=== PATIENT | female | born 1950 | race Caucasian/White ===

== ENCOUNTER 2016-10-30 11:43 | Emergency (ER) | payer MEDICARE, OTHER ==
[2016-10-30 12:14] VITALS: RESP 16
--- NOTE | 2016-10-30 12:33 | ED ---
General Adult HPI - General Chief complaint: Back Pain/Injury Stated complaint: hip/back pain Time Seen by Provider: 10/30/16 12:20 Source: patient, family, RN notes reviewed Mode of arrival: ambulatory Limitations: no limitations - History of Present Illness Initial comments: 69-year-old female who presents emergency room today with a chief complaint of left-sided back pain radiating towards the hip. She admits that has been off- and-on over the last month and getting worse over the last day. Since she's been using [id number] Tylenol with little relief the symptoms. Denies any radiation. Mitts that she was worried about possible UTI with her family doctor week ago but never the results. Patient denies any dysuria or hematuria. States pain is relieved with extension and flexion to the right. States worse with certain movements. Denies any gallbladder incontinence or retention. Denies any saddle anesthesia. Patient denies any recent fever, chills, shortness of breath, chest pain, abdominal pain, nausea or vomiting, numbness or tingling, dysuria or hematuria, constipation or diarrhea, headaches or visual changes, or any other complaints. - Related Data Home Medications Medication Instructions Recorded Confirmed Aspirin 81 mg PO HS 09/08/13 02/09/16 amLODIPine [Norvasc] 5 mg PO BID 09/08/13 02/09/16 Furosemide [Furosemide] 20 mg PO DAILY 05/18/15 02/09/16 Lisinopril [Lisinopril] 40 mg PO QAM 05/18/15 02/09/16 Meclizine [Antivert] 12.5 mg PO TID PRN 05/18/15 02/09/16 Calcium Carbonate/Vitamin D3 1 each PO BID 02/07/16 02/09/16 [Calcium 600-Vit D3 400 Caplet] Ranitidine HCl 150 mg PO BID 02/07/16 02/09/16 Previous Rx's Medication Instructions Recorded Baclofen 10 mg PO TID #20 tab 10/30/16 Hydrocodone/Acetaminophen [[place]olog[place] 1 each PO Q6HR PRN #15 tab 10/30/16 5-325] Ibuprofen [Motrin] 600 mg PO Q6HR PRN #40 day 10/30/16 Allergies Allergy/AdvReac Type Severity Reaction Status Date / Time azithromycin [From Zithromax] Allergy Abdominal Verified 10/30/16 12:10 Pain codeine Allergy Itching Verified 10/30/16 12:10 cyclobenzaprine Allergy facial Verified 10/30/16 12:10 swelling,itching latex Allergy Itching Verified 10/30/16 12:10 methylprednisolone Allergy Abdominal Verified 10/30/16 12:10 Pain sulfamethoxazole Allergy Abdominal Verified 10/30/16 12:10 [From Bactrim] Pain tramadol Allergy Abdominal Verified 10/30/16 12:10 Pain trimethoprim [From Bactrim] Allergy Abdominal Verified 10/30/16 12:10 Pain Review of Systems ROS Statement: Those systems with pertinent positive or pertinent negative responses have been documented in the HPI. ROS Other: All systems not noted in ROS Statement are negative. Past Medical History Past Medical History: GERD/Reflux, Hyperlipidemia, Hypertension, Osteoarthritis (OA), Sleep Apnea/CPAP/BIPAP Additional Past Medical History / Comment(s): "Prediabetic",Gallstones,"has trouble emptying bladder and constant pain" History of Any Multi-Drug Resistant Organisms: None Reported Past Surgical History: Appendectomy, Bladder Surgery, Breast Surgery, Joint Replacement, Orthopedic Surgery Additional Past Surgical History / Comment(s): HEMORROIDS, SKIN CA REMOVAL,Lt hip replacement,chip rt breast Past Anesthesia/Blood Transfusion Reactions: No Reported Reaction Additional Past Anesthesia/Blood Transfusion Reaction / Comment(s): no hx blood transfusion Past Psychological History: No Psychological Hx Reported Smoking Status: Never smoker Past Alcohol Use History: None Reported Past Drug Use History: None Reported - Past Family History Mother Family Medical History: Rheumatoid Arthritis (RA) Father Family Medical History: Cancer Additional Family Medical History / Comment(s): sarcoma abdominal area Sister(s) Family Medical History: Cancer Additional Family Medical History / Comment(s): #1 sister ovarian and bladder CA ,#2 sister breast CA Brother(s) Family Medical History: CVA/TIA General Exam - General Exam Comments Initial Comments: General: The patient is awake and alert, in no distress, and does not appear acutely ill. Eye: Pupils are equal, round and reactive to light, extra-ocular movements are intact. No nystagmus. There is normal conjunctiva bilaterally. No signs of icterus. Ears, nose, mouth and throat: There are moist mucous membranes and no oral lesions. Neck: The neck is supple, there is no tenderness or JVD. Cardiovascular: There is a regular rate and rhythm. No murmur, rub or gallop is appreciated. Respiratory: Lungs are clear to auscultation, respirations are non-labored, breath sounds are equal. No wheezes, stridor, rales, or rhonchi. Gastrointestinal: Soft, non-distended, non-tender abdomen without masses or organomegaly noted. There is no rebound or guarding present. No CVA tenderness. Bowel sounds are unremarkable. Musculoskeletal: Normal ROM, no tenderness. Strength 5/5. Sensation intact. Pulses equal bilaterally 2+. Neurological: A&O x 3. CN II-XII intact, There are no obvious motor or sensory deficits. Coordination appears grossly intact. Speech is normal. Skin: Skin is warm and dry and no rashes or lesions are noted. Psychiatric: Cooperative, appropriate mood & affect, normal judgment. Limitations: no limitations Course Vital Signs 10/30/16 12:10 Temperature 97 F L Pulse Rate 86 Respiratory 16 Rate Blood Pressure 169/79 O2 Sat by Pulse 99 Oximetry Medical Decision Making - Medical Decision Making Patient's urinalysis negative for any sign of infection. Patient's x-rays of the left hip are negative for any acute abnormality. Patient's x-ray of the lumbar spine does show anterolisthesis of L5. Results were discussed with the patient. Patient advised we'll try a muscle relaxer along with anti- inflammatories and pain medication for symptoms. Advised faulted family doctor symptoms persist for further evaluation possible MRI. Advised return for any other concerns. - Lab Data Lab Results 10/30/16 Range/Units 12:55 Urine Color Yellow Urine Appearance Clear (Clear) Urine pH 7.0 (5.0-8.0) Ur Specific [place] 1.015 (1.001-1.035) Urine Protein Negative (Negative) Urine Glucose (UA) Negative (Negative) Urine Ketones Negative (Negative) Urine Blood Negative (Negative) Urine Nitrite Negative (Negative) Urine Bilirubin Negative (Negative) Urine Urobilinogen <2.0 (<2.0) mg/dL Ur Leukocyte Esterase Small H (Negative) Urine WBC 3 (0-5) /hpf Ur Squamous Epith Cells <1 (0-4) /hpf Disposition Clinical Impression: Acute low back pain Disposition: HOME SELF-CARE Condition: Good Instructions: Acute Low Back Pain (ED) Additional Instructions: Please use medication as discussed. Please follow-up with family doctor in the next 2 days of symptoms have not improved. Please return to emergency room if the symptoms increase or worsen or for any other concerns. Prescriptions: Baclofen 10 mg PO TID #20 tab Hydrocodone/Acetaminophen [[place]olog[place] 5-325] 1 each PO Q6HR PRN #15 tab PRN Reason: Pain Ibuprofen [Motrin] 600 mg PO Q6HR PRN #40 day PRN Reason: Pain Referrals: Darinel Camejo MD [Primary Care Provider] - 1-2 days Time of Disposition: 13:31
[2016-10-30 13:10] LABS: Appearance,Urine Clear (Clear); Bilirubin,Urine Negative (Negative); Glucose,Urine (UA) Negative (Negative); Ketones,Urine Negative (Negative); Leukocyte Esterase,Urine Small (Negative); Nitrite,Urine Negative (Negative); Particle Count 610; Protein,Urine Negative (Negative); Specific Gravity,Urine 1.015 (1.001-1.035); Squamous Epithelial Cell,Urine <1 /hpf (0-4); UA Billing (MACRO vs. MICRO) MICRO; Urobilinogen,Urine <2.0 mg/dL (<2.0); WBC,Urine 3 /hpf (0-5)
--- NOTE | 2016-10-30 13:10 | XR ---
EXAMINATION TYPE: XR Hip LT and AP Pelvis DATE OF EXAM: 10/30/2016 COMPARISON: NONE HISTORY: Pain TECHNIQUE: A single AP view of the pelvis is obtained. Two views of the left hip are obtained. FINDINGS: Postsurgical change involving the left hip. Metallic densities overlying the pubic rami. Ar thropathy of the right hip and degenerative change of the spine. Correlate for sacroiliitis. No defin ite acute fracture. IMPRESSION: 1. No acute fracture.
--- NOTE | 2016-10-30 13:12 | XR ---
EXAM TYPE: LUMBAR SPINE X RAY SERIES COMPARISON: NONE HISTORY: Pain TECHNIQUE: 3 views are submitted. FINDINGS: Multilevel moderate to severe degenerative disc disease and facet arthropathy. Grade 1 anterolisthesi s L4 on L5. Scoliotic curvature noted. Changes of sacroiliitis suggested. IMPRESSION: 1. Multilevel moderate to severe degenerative disc disease and facet arthropathy with grade 1 anterol isthesis L4 on L5.
[2016-10-30 13:42] VITALS: BP 152/80; PULSE 70; TEMP 97.5
== END 2016-10-30 13:30 | disposition home or self-care (01) ==
LOC: EC 11:43
DX: M54.5 Low back pain (principal); M43.16 Spondylolisthesis, lumbar region; I10 Essential (primary) hypertension; K21.9 Gastro-esophageal reflux disease without esophagitis; G47.30 Sleep apnea, unspecified; Z99.89 Dependence on other enabling machines and devices; Z85.828 Personal history of other malignant neoplasm of skin; Z79.82 Long term (current) use of aspirin; Z79.899 Other long term (current) drug therapy; Z88.1 Allergy status to other antibiotic agents; Z88.2 Allergy status to sulfonamides; Z88.5 Allergy status to narcotic agent; Z88.6 Allergy status to analgesic agent; Z88.8 Allergy status to other drugs, medicaments and biological substances; Z91.040 Latex allergy status
CPT/HCPCS: 72100; 73502; 81001; 99283

== ENCOUNTER → 2018-05-13 | Outpatient (CLI) | payer MEDICARE, OTHER ==
--- NOTE | 2018-05-15 11:37 | MM ---
Reason for exam: screening (asymptomatic). Last mammogram was performed 2 years and 4 months ago. History: Patient is postmenopausal and has history of other cancer at age 29. Family history of premenopausal breast cancer in sister at age 63. Benign right mammotome panel of the right breast, January 31, 2010. Physical Findings: A clinical breast exam by your physician is recommended on an annual basis and results should be correlated with mammographic findings. MG 3D Screening Mammo W/Cad Bilateral CC and MLO view(s) were taken. Prior study comparison: January 12, 2016, bilateral MG screening mammo w CAD. November 26, 2014, bilateral MG screening mammo w CAD. There are scattered fibroglandular densities. Finding: There are typically benign dystrophic, regional calcifications in the lower inner quadrant, anterior position of the right breast. No significant changes in finding since January 12, 2016 and November 26, 2014. ASSESSMENT: Benign, BI-RAD 2 RECOMMENDATION: Routine screening mammogram of both breasts in 1 year.
== END | disposition home or self-care (01) ==
LOC: RADMAMWWP 14:25
PROVIDERS: ATTEND Family Medicine
DX: Z12.31 Encounter for screening mammogram for malignant neoplasm of breast (principal)
CPT/HCPCS: 77063; 77067

== ENCOUNTER → 2018-06-17 | Outpatient (CLI) | payer MEDICARE, OTHER ==
[~2018-06-17] MED LIST: REGADENOSON 0.4 MG/5 ML SYRINGE IV ONE
--- NOTE | 2018-06-17 12:02 | NM ---
EXAMINATION TYPE: NM stress lexiscan cardiolite DATE OF EXAM: 06/17/2018 COMPARISON: NONE HISTORY: Chest TECHNIQUE: After the intravenous administration of 10.06 mCi Tc 99m Sestamibi - Cardiolite resting S PECT images acquired 45 minutes post injection. The patient received 0.4mg Lexiscan, 25.9 mCi Tc 99m Sestamibi - Stress images obtained [address] injection FINDINGS: Review of stress and rest SPECT images demonstrates a mixed fixed and reversible perfusion defect inv olving the inferoapical myocardium.. Gated analysis shows normal wall motion with an estimated left ventricular ejection fraction of 67 %. Report called to the referring clinician. IMPRESSION: There is a fixed defect involving the inferoapical myocardium with a small area of stress -induced reversible ischemia. Correlate clinically.
--- NOTE | 2018-06-17 14:41 | P.STRESS ---
- Stress Test Note Stress Test Results/Findings: Exam Performed: NM stress lexiscan cardiolite Exam Date: 06/17/18 Reason for Exam: CHEST PAIN Height: 5 ft 4 in Weight: 106.594 kg Protocol: LEXISCAN Stage: N/A Duration of Exercise: 10 MINUTES Resting Heart Rate: 81 Resting Blood Pressure: 138/86 Maximum Achieved Heart Rate: 101 Maximum Achieved Blood Pressure: 165/63 85% PMHR: N/A 100% PMHR: N/A METS: N/A Technologist Comment: Stress Test Results/Findings: Baseline heart rate 81 beats a minute, baseline blood pressure 138/86. His mercury Baseline twelve-lead ECG shows sinus rhythm with normal MN narrow QRS normal ST segments Patient received Lexiscan infusion per protocol Peak heart rate 101 beats a minute. Peak blood pressure 163/95 mmHg There was no ECG evidence for ischemia Occasional PVCs noted Nuclear portion will be reported separately
== END ==
LOC: RADNMMAIN 07:57
PROVIDERS: ATTEND Family Medicine
DX: R07.89 Other chest pain (principal)
CPT/HCPCS: 93017; 78452; A9500; J2785

== ENCOUNTER 2018-11-03 11:19 | Emergency (ER) | payer MEDICARE, OTHER ==
[2018-11-03 11:50] VITALS: TEMP 98.4
[2018-11-03] MEDS ORDERED: MORPHINE SULFATE 4 MG/ML SYRINGE IM STA (12:53)
[2018-11-03] MEDS ORDERED: KETOROLAC 60 MG/2 ML VIAL IM STA (12:53)
--- NOTE | 2018-11-03 13:26 | XR ---
Lumbar spine HISTORY: Low back pain, trauma 3 views of the lumbar spine Correlation to prior exam 10/30/2016 There is a dextroscoliosis centered at the mid lumbar spine. Multilevel spondylosis is present. Hyper trophic changes are present at the sacroiliac joints. Bone mineralization is reduced. Anterolisthesis grade 1 L4-5. Vacuum phenomenon present at intervertebral disc space L3-4, L5-S1, likely L4-5. There is loss of disc height at intervertebral levels. Sclerosis present in the posterior elements of the lumbar spine. There is multilevel spondylosis. Lumbar vertebral bodies show preserved height. Vascula r calcifications are noted within the aorta. IMPRESSION: Degenerative disc disease and facet arthropathy. No acute fracture or subluxation. Scolio sis. Arthropathy of the sacroiliac joints.
--- NOTE | 2018-11-03 13:28 | XR ---
EXAMINATION TYPE: XR Hip LT and AP Pelvis DATE OF EXAM: 11/03/2018 COMPARISON: Previous exam 10/30/2016 HISTORY: Line pain TECHNIQUE: A single AP view of the pelvis is obtained. Two views of the left hip are obtained. FINDINGS: There is no acute fracture/dislocation evident in the pelvis. The hip and sacroiliac join ts appear symmetric and unremarkable. The overlying soft tissue appears unremarkable. Two views of left hip show no acute fracture or dislocation in the patient is status post left hip ar throplasty. Postop changes are noted at the level of the pubic symphysis as on prior. No focal lytic or sclerotic lesion seen in the proximal left femur. The overlying soft tissue is unremarkable. Messi ne mineralization is reduced which may limit sensitivity. IMPRESSION: There is no acute fracture or dislocation in the pelvis or left hip. Follow-up as indica yissel.
--- NOTE | 2018-11-03 13:28 | ED ---
Back Pain HPI - General Chief Complaint: Back Pain/Injury Stated Complaint: hip pain Time Seen by Provider: 11/03/18 12:41 Source: patient, family, RN notes reviewed, old records reviewed Limitations: no limitations - History of Present Illness Initial Comments: His is a 68-year-old female present to return today with back and left hip pain. Symptoms started after she fell on September 14. Patient states that the symptoms seemed to progress over the past few weeks. Patient denies any saddle anesthesias. Total left hip replacement. This was done by Dr. Tinoco.Patient denies any recent fever, chills, shortness of breath, chest pain, back pain, abdominal pain, nausea vomiting, numbness or tingling, dysuria or hematuria, constipation or diarrhea, headaches or visual changes, or any other current symptoms - Related Data Home Medications Medication Instructions Recorded Confirmed Aspirin 81 mg PO HS 09/08/13 11/03/18 amLODIPine [Norvasc] 5 mg PO BID 09/08/13 11/03/18 Meclizine [Antivert] 12.5 mg PO TID PRN 05/18/15 11/03/18 Ranitidine HCl 150 mg PO BID 02/07/16 11/03/18 Atorvastatin Calcium [Lipitor] 10 mg PO HS 11/03/18 11/03/18 Metoprolol Succinate [Toprol XL] 25 mg PO DAILY 11/03/18 11/03/18 Previous Rx's Medication Instructions Recorded Cyclobenzaprine [Flexeril] 10 mg PO TID #12 tab 11/03/18 methylPREDNISolone Dose Pack 4 mg PO DIRECTED #21 package 11/03/18 [Medrol Dose Pack] Allergies Allergy/AdvReac Type Severity Reaction Status Date / Time codeine Allergy Itching Verified 11/03/18 12:58 cyclobenzaprine Allergy facial Verified 11/03/18 12:58 swelling,itching latex Allergy Itching Verified 11/03/18 12:58 azithromycin [From Zithromax] AdvReac Abdominal Verified 11/03/18 12:58 Pain methylprednisolone AdvReac Abdominal Verified 11/03/18 12:58 Pain sulfamethoxazole AdvReac Abdominal Verified 11/03/18 12:58 [From Bactrim] Pain tramadol AdvReac Abdominal Verified 11/03/18 12:58 Pain trimethoprim [From Bactrim] AdvReac Abdominal Verified 11/03/18 12:58 Pain Review of Systems ROS Statement: Those systems with pertinent positive or pertinent negative responses have been documented in the HPI. ROS Other: All systems not noted in ROS Statement are negative. Past Medical History Past Medical History: GERD/Reflux, Hyperlipidemia, Hypertension, Osteoarthritis (OA), Sleep Apnea/CPAP/BIPAP Additional Past Medical History / Comment(s): "Prediabetic",Gallstones,"has trouble emptying bladder and constant pain" History of Any Multi-Drug Resistant Organisms: None Reported Past Surgical History: Appendectomy, Bladder Surgery, Breast Surgery, Joint Replacement, Orthopedic Surgery Additional Past Surgical History / Comment(s): HEMORROIDS, SKIN CA REMOVAL,Lt hip replacement,chip rt breast Past Anesthesia/Blood Transfusion Reactions: No Reported Reaction Additional Past Anesthesia/Blood Transfusion Reaction / Comment(s): no hx blood transfusion Past Psychological History: No Psychological Hx Reported Smoking Status: Never smoker Past Alcohol Use History: None Reported Past Drug Use History: None Reported - Past Family History Mother Family Medical History: Rheumatoid Arthritis (RA) Father Family Medical History: Cancer Additional Family Medical History / Comment(s): sarcoma abdominal area Sister(s) Family Medical History: Cancer Additional Family Medical History / Comment(s): #1 sister ovarian and bladder CA,#2 sister breast CA Brother(s) Family Medical History: CVA/TIA General Exam - General Exam Comments Initial Comments: 68-year-old female. Alert and oriented 3. No distress. General: Well appearing, well nourished, in no distress. Oriented x 3, normal mood and affect . Ambulating without difficulty. Skin: Good turgor, no rash, unusual bruising or prominent lesions Hair: Normal texture and distribution. HEENT: Head: Normocephalic, atraumatic, no visible or palpable masses, depressions, or scaring. Eyes: Visual acuity intact, conjunctiva clear, sclera non-icteric, EOM intact, PERRL. Ears: EACs clear, TMs translucent & cone of light visualized. hearing intact. Nose: No external lesions, mucosa non-inflamed, septum and turbinates normal Mouth: Mucous membranes moist, no mucosal lesions. Teeth/Gums: No obvious caries or periodontal disease. No gingival inflammation or significant resorption. Pharynx: Mucosa non-inflamed, no tonsillar hypertrophy or exudate Neck: Supple, without lesions, bruits, or adenopathy, thyroid non-enlarged and non-tender Heart: No cardiomegaly or thrills; regular rate and rhythm, no murmur or gallop Lungs: Clear to auscultation and percussion Abdomen: Bowel sounds normal, no tenderness, organomegaly, masses, or hernia Extremities: No amputations or deformities, cyanosis, edema or varicosities, peripheral pulses intact. Patient does have some tenderness over the left lat eral hip. No contusions. Musculoskeletal: Normal gait and station. No misalignment, asymmetry, crepitation, defects, tenderness, masses, effusions, decreased range of motion, instability, atrophy or abnormal strength or tone in the head, neck, spine, ribs, pelvis or extremities. Neurologic: CN 2-12 normal. Sensation to pain, touch, and proprioception normal. DTRs normal in upper and lower extremities. No pathologic reflexes. Psychiatric: Oriented X3, intact recent and remote memory, judgment and insight, normal mood and affect. Limitations: no limitations Course Vital Signs 11/03/18 11/03/18 11:47 14:24 Temperature 98.4 F Pulse Rate 72 70 Respiratory 17 18 Rate Blood Pressure 131/73 138/78 O2 Sat by Pulse 98 97 Oximetry Medical Decision Making - Medical Decision Making Patient is a 68 , SHE PRESENTS TODAY FOR CHIEF COMPLAINT OF of left hip pain and lower back pain. Patient's symptoms started on September 14 after fall. She's been able ambulate since that time. She does have some pain with range of motion of the left hip. No shortening of the leg pulses are intact. X-rays of the hip prosthesis reviewed and negative for any acute changes in the lower spine x-rays did show degenerative disc disease butacute fractures. I discussed Patient can follow-up with inventory management specialist Dr. Tinoco in thoughts who did her placement. Patient is agreeable unable to ambulate without difficulty. - Radiology Data Radiology results: report reviewed Acute fracture-dislocation in the pelvis or left hip. Degenerative disc disease and sat her up they. No acute fracture subluxation. Scoliosis. Arthropathy of the sacroiliac joints. Disposition Clinical Impression: DDD (degenerative disc disease), Lumbar back pain, Left hip pain Disposition: HOME SELF-CARE Condition: Good Instructions (If sedation given, give patient instructions): Acute Low Back Pain (ED) Additional Instructions: Patient advised to follow up with inventory management specialist. Please use medication as discussed. Please follow up with family doctor if symptoms have not improved over the next two days. Please return to the emergency room if your symptoms increase or worsen or for any other concerns. Prescriptions: Cyclobenzaprine [Flexeril] 10 mg PO TID #12 tab methylPREDNISolone Dose Pack [Medrol Dose Pack] 4 mg PO DIRECTED #21 package Is patient prescribed a controlled substance at d/c from ED?: No Referrals: Darinel Camejo MD [Primary Care Provider] - 1-2 days Tony David MD [Family Provider] - 1-2 days Time of Disposition: 14:03
[2018-11-03 14:24] VITALS: BP 138/78; PULSE 70; RESP 18
== END 2018-11-03 14:24 | disposition home or self-care (01) ==
LOC: EC 11:19
DX: M51.36 Other intervertebral disc degeneration, lumbar region (principal); M25.552 Pain in left hip; K21.9 Gastro-esophageal reflux disease without esophagitis; E78.5 Hyperlipidemia, unspecified; I10 Essential (primary) hypertension; M19.90 Unspecified osteoarthritis, unspecified site; G47.30 Sleep apnea, unspecified; Z79.82 Long term (current) use of aspirin; Z79.899 Other long term (current) drug therapy; Z88.5 Allergy status to narcotic agent; Z91.040 Latex allergy status; Z88.8 Allergy status to other drugs, medicaments and biological substances; Z88.2 Allergy status to sulfonamides; Z99.89 Dependence on other enabling machines and devices; Z96.642 Presence of left artificial hip joint
CPT/HCPCS: 72100; 73502; 99284; 96372 ×2; J2270; J1885

== ENCOUNTER → 2019-03-24 | Outpatient (CLI) | payer MEDICARE, OTHER ==
--- NOTE | 2019-03-24 13:50 | NM ---
EXAMINATION TYPE: NM bone 3 phase DATE OF EXAM: 03/24/2019 COMPARISON: NONE HISTORY: Pain in left hip and down left leg Triple phase bone scintigraphy was performed following the injection of 24.6 mCi Tc 99m MDP. Immedia te images and 5.5 hours post injection images acquired. FINDINGS: Blood flow and blood pool activity is normal and symmetric. Photopenic area in the proximal left femur consistent with hip arthroplasty. Mild uptake present along the proximal femoral distribu tion adjacent to the femoral component of the patient's left hip arthroplasty on the frontal image. There is no significant abnormal accumulation of radiotracer to suggest metastatic disease to the bon e or other significant abnormality. IMPRESSION: Mild uptake along the femoral component is nonspecific at the left hip. There may be underlying stres s change, correlate with plain film for possible loosening, particle disease.
== END | disposition home or self-care (01) ==
LOC: RADNMMAIN 07:21
PROVIDERS: ATTEND Orthopaedic Surgery
DX: M79.662 Pain in left lower leg (principal); Z91.040 Latex allergy status; Z88.2 Allergy status to sulfonamides; Z88.1 Allergy status to other antibiotic agents; Z88.5 Allergy status to narcotic agent; Z88.6 Allergy status to analgesic agent
CPT/HCPCS: 78315; A9503

== ENCOUNTER → 2019-08-07 | Outpatient (CLI) | payer MEDICARE, OTHER ==
--- NOTE | 2019-08-10 10:24 | MM ---
Reason for exam: screening (asymptomatic). Last mammogram was performed 1 year and 3 months ago. History: Patient is postmenopausal and has history of other cancer at age 29. Family history of premenopausal breast cancer in sister at age 63. Benign right mammotome panel of the right breast, January 31, 2010. Took hormonal contraceptives for 14 years beginning at age 19. Physical Findings: A clinical breast exam by your physician is recommended on an annual basis and results should be correlated with mammographic findings. MG 3D Screening Mammo W/Cad Bilateral CC and MLO view(s) were taken. Prior study comparison: May 13, 2018, bilateral MG 3d screening mammo w/cad. January 12, 2016, bilateral MG screening mammo w CAD. There are scattered fibroglandular densities. No significant changes when compared with prior studies. ASSESSMENT: Benign, BI-RAD 2 RECOMMENDATION: Routine screening mammogram of both breasts in 1 year.
== END | disposition home or self-care (01) ==
LOC: RADMAMWWP 11:29
PROVIDERS: ATTEND Family Medicine
DX: Z12.31 Encounter for screening mammogram for malignant neoplasm of breast (principal)
CPT/HCPCS: 77063; 77067

== ENCOUNTER 2020-03-27 05:04 | Observation (INO) | payer MEDICARE, OTHER ==
[2020-03-27] MEDS ORDERED: SODIUM CHLORIDE 0.9% 1,000 ML IV STA (05:43)
[2020-03-27] MEDS ORDERED: ONDANSETRON 4 MG/2 ML VIAL IVP STA ×3 (05:43→09:27)
[2020-03-27] MEDS ORDERED: PANTOPRAZOLE 40 MG/10 ML VIAL IVP STA (05:43)
[2020-03-27] MEDS ORDERED: MORPHINE SULFATE 4 MG/ML SYRINGE IV STA (05:43)
--- NOTE | 2020-03-27 05:45 | ED ---
Abdominal Pain HPI - General Source: patient, RN notes reviewed, old records reviewed Mode of arrival: ambulatory Limitations: no limitations - History of Present Illness MD Complaint: abdominal pain -: hour(s) Location: diffuse Radiation: epigastric Migration to: epigastric Severity: moderate Severity scale (1-10): 4 Quality: cramping, aching Consistency: constant Improves With: nothing Worsens With: nothing Associated Symptoms: nausea, vomiting Treatments Prior to Arrival: NSAIDs <Dwayne Knott - Last Filed: 03/27/20 06:02> <Earle Cook - Last Filed: 03/27/20 09:09> - General Chief Complaint: Abdominal Pain Stated Complaint: ABD pain Time Seen by Provider: 03/27/20 05:17 - History of Present Illness Initial Comments: This is a 69-year-old female to the ER for evaluation patient presents for diffuse abdominal pain anterior abdominal pain. Patient has severe anterior abdominal pain with persistent nausea vomiting. No fevers but does feel little sweaty and clammy. Patient has had appendix surgery but when she was a kid also had a hysterectomy. Patient has no recent travel history or sick contacts. Feels like she is concerned for some gallbladder illness. (Dwayne Knott) - Related Data Home Medications Medication Instructions Recorded Confirmed Aspirin 81 mg PO HS 09/08/13 11/03/18 amLODIPine [Norvasc] 5 mg PO BID 09/08/13 11/03/18 Meclizine [Antivert] 12.5 mg PO TID PRN 05/18/15 11/03/18 Ranitidine HCl 150 mg PO BID 02/07/16 11/03/18 Atorvastatin Calcium [Lipitor] 10 mg PO HS 11/03/18 11/03/18 Metoprolol Succinate [Toprol XL] 25 mg PO DAILY 11/03/18 11/03/18 Previous Rx's Medication Instructions Recorded Cyclobenzaprine [Flexeril] 10 mg PO TID #12 tab 11/03/18 methylPREDNISolone Dose Pack 4 mg PO DIRECTED #21 package 11/03/18 [Medrol Dose Pack] Allergies Allergy/AdvReac Type Severity Reaction Status Date / Time codeine Allergy Itching Verified 03/27/20 05:21 cyclobenzaprine Allergy facial Verified 03/27/20 05:21 swelling,itching latex Allergy Itching Verified 03/27/20 05:21 azithromycin [From Zithromax] AdvReac Abdominal Verified 03/27/20 05:21 Pain methylprednisolone AdvReac Abdominal Verified 03/27/20 05:21 Pain sulfamethoxazole AdvReac Abdominal Verified 03/27/20 05:21 [From Bactrim] Pain tramadol AdvReac Abdominal Verified 03/27/20 05:21 Pain trimethoprim [From Bactrim] AdvReac Abdominal Verified 03/27/20 05:21 Pain Review of Systems ROS Other: All systems not noted in ROS Statement are negative. <Dwayne Knott - Last Filed: 03/27/20 06:02> ROS Other: All systems not noted in ROS Statement are negative. <Earle Cook - Last Filed: 03/27/20 09:09> ROS Statement: Those systems with pertinent positive or pertinent negative responses have been documented in the HPI. Past Medical History Past Medical History: GERD/Reflux, Hyperlipidemia, Hypertension, Osteoarthritis (OA), Sleep Apnea/CPAP/BIPAP Additional Past Medical History / Comment(s): "Prediabetic",Gallstones,"has trouble emptying bladder and constant pain" History of Any Multi-Drug Resistant Organisms: None Reported Past Surgical History: Appendectomy, Bladder Surgery, Breast Surgery, Joint Repl acement, Orthopedic Surgery Additional Past Surgical History / Comment(s): HEMORROIDS, SKIN CA REMOVAL,Lt hip replacement,chip rt breast Past Anesthesia/Blood Transfusion Reactions: No Reported Reaction Additional Past Anesthesia/Blood Transfusion Reaction / Comment(s): no hx blood transfusion Past Psychological History: No Psychological Hx Reported Smoking Status: Never smoker Past Alcohol Use History: None Reported Past Drug Use History: None Reported - Past Family History Mother Family Medical History: Rheumatoid Arthritis (RA) Father Family Medical History: Cancer Additional Family Medical History / Comment(s): sarcoma abdominal area Sister(s) Family Medical History: Cancer Additional Family Medical History / Comment(s): #1 sister ovarian and bladder CA,#2 sister breast CA Brother(s) Family Medical History: CVA/TIA <Dwayne Knott - Last Filed: 03/27/20 06:02> General Exam Limitations: no limitations General appearance: alert, in no apparent distress Head exam: Present: atraumatic, normocephalic, normal inspection Eye exam: Present: normal appearance, PERRL, EOMI. Absent: scleral icterus, conjunctival injection, periorbital swelling ENT exam: Present: normal exam, mucous membranes moist Neck exam: Present: normal inspection. Absent: tenderness, meningismus, lymphadenopathy Respiratory exam: Present: normal lung sounds bilaterally. Absent: respiratory distress, wheezes, rales, rhonchi, stridor Cardiovascular Exam: Present: regular rate, normal rhythm, normal heart sounds. Absent: systolic murmur, diastolic murmur, rubs, gallop, clicks GI/Abdominal exam: Present: soft, normal bowel sounds. Absent: distended, tenderness, guarding, rebound, rigid Extremities exam: Present: normal inspection, full ROM, normal capillary refill. Absent: tenderness, pedal edema, joint swelling, calf tenderness Back exam: Present: normal inspection Neurological exam: Present: alert, oriented X3, CN II-XII intact Psychiatric exam: Present: normal affect, normal mood Skin exam: Present: warm, dry, intact, normal color. Absent: rash <Dwayne Knott - Last Filed: 03/27/20 06:02> Course <Dwayne Knott - Last Filed: 03/27/20 06:02> Vital Signs 03/27/20 03/27/20 03/27/20 05:14 07:01 07:36 Temperature 97.8 F Pulse Rate 61 96 78 Respiratory 18 16 18 Rate Blood Pressure 220/66 204/109 166/83 O2 Sat by Pulse 97 96 98 Oximetry - Reevaluation(s) Reevaluation #1: 03/27/20 06:04 Medical record is reviewed (Dwayne Knott) Reevaluation #2: 03/27/20 06:04 Symptoms have been improved (Dwayne Knott) Medical Decision Making - Lab Data Result diagrams: 03/27/20 05:55 03/27/20 05:55 - Radiology Data Radiology results: report reviewed (I did review the imaging and report evidence of cholecystitis or choledocholithiasis is a common bile duct 1 cm. CAT scan shows no obvious acute processes.), image reviewed <Earle Cook - Last Filed: 03/27/20 09:09> - Medical Decision Making the patient was endorsed me by Dr. Knott at her shift change pending CAT scan results. Patient does have evidence of acute cholecystitis and cholelithiasis. I did discuss the case the patient and her as well as Dr. Sandoval. Patient will be admitted for cholecystectomy. The meantime pain control and nausea control measures will be continued. (Earle Cook) - Lab Data Lab Results 03/27/20 03/27/20 03/27/20 Range/Units 05:55 05:55 05:55 WBC 10.9 H (3.8-10.6) k/uL RBC 5.02 (3.80-5.40) m/uL Hgb 14.6 (11.4-16.0) gm/dL Hct 42.9 (34.0-46.0) % MCV 85.4 (80.0-100.0) fL MCH 29.1 (25.0-35.0) pg MCHC 34.1 (31.0-37.0) g/dL RDW 12.2 (11.5-15.5) % Plt Count 383 (150-450) k/uL MPV 7.1 Neutrophils % 85 % Lymphocytes % 9 % Monocytes % 4 % Eosinophils % 1 % Basophils % 0 % Neutrophils # 9.3 H (1.3-7.7) k/uL Lymphocytes # 1.0 (1.0-4.8) k/uL Monocytes # 0.4 (0-1.0) k/uL Eosinophils # 0.1 (0-0.7) k/uL Basophils # 0.0 (0-0.2) k/uL PT 10.0 (9.0-12.0) sec INR 0.9 (<1.2) APTT 21.9 L (22.0-30.0) sec Sodium (137-145) mmol/L Potassium (3.5-5.1) mmol/L Chloride (98-107) mmol/L Carbon Dioxide (22-30) mmol/L Anion Gap mmol/L BUN (7-17) mg/dL Creatinine (0.52-1.04) mg/dL Est GFR (CKD-EPI)AfAm (>60 ml/min/1.73 sqM) Est GFR (CKD-EPI)NonAf (>60 ml/min/1.73 sqM) Glucose (74-99) mg/dL Plasma Lactic Acid [place] (0.7-2.0) mmol/L Calcium (8.4-10.2) mg/dL Total Bilirubin (0.2-1.3) mg/dL AST (14-36) U/L ALT (4-34) U/L Alkaline Phosphatase (38-126) U/L Troponin I (0.000-0.034) ng/mL Total Protein (6.3-8.2) g/dL Albumin (3.5-5.0) g/dL Amylase (30-110) U/L Lipase (23-300) U/L Urine Color Light Yellow Urine Appearance Clear (Clear) Urine pH 8.0 (5.0-8.0) Ur Specific [place] 1.016 (1.001-1.035) Urine Protein Trace H (Negative) Urine Glucose (UA) Negative (Negative) Urine Ketones Negative (Negative) Urine Blood Negative (Negative) Urine Nitrite Negative (Negative) Urine Bilirubin Negative (Negative) Urine Urobilinogen <2.0 (<2.0) mg/dL Ur Leukocyte Esterase Small H (Negative) Urine RBC 2 (0-5) /hpf Urine WBC 9 H (0-5) /hpf Ur Squamous Epith Cells 1 (0-4) /hpf Urine Bacteria Rare H (None) /hpf Urine Mucus Rare H (None) /hpf 03/27/20 03/27/20 03/27/20 Range/Units 05:55 05:55 05:55 WBC (3.8-10.6) k/uL RBC (3.80-5.40) m/uL Hgb (11.4-16.0) gm/dL Hct (34.0-46.0) % MCV (80.0-100.0) fL MCH (25.0-35.0) pg MCHC (31.0-37.0) g/dL RDW (11.5-15.5) % Plt Count (150-450) k/uL MPV Neutrophils % % Lymphocytes % % Monocytes % % Eosinophils % % Basophils % % Neutrophils # (1.3-7.7) k/uL Lymphocytes # (1.0-4.8) k/uL Monocytes # (0-1.0) k/uL Eosinophils # (0-0.7) k/uL Basophils # (0-0.2) k/uL PT (9.0-12.0) sec INR (<1.2) APTT (22.0-30.0) sec Sodium 138 (137-145) mmol/L Potassium 4.2 (3.5-5.1) mmol/L Chloride 100 (98-107) mmol/L Carbon Dioxide 26 (22-30) mmol/L Anion Gap 12 mmol/L BUN 19 H (7-17) mg/dL Creatinine 1.32 H (0.52-1.04) mg/dL Est GFR (CKD-EPI)AfAm 47 (>60 ml/min/1.73 sqM) Est GFR (CKD-EPI)NonAf 41 (>60 ml/min/1.73 sqM) Glucose 170 H (74-99) mg/dL Plasma Lactic Acid [place] 2.0 (0.7-2.0) mmol/L Calcium 9.9 (8.4-10.2) mg/dL Total Bilirubin 0.7 (0.2-1.3) mg/dL AST 27 (14-36) U/L ALT 23 (4-34) U/L Alkaline Phosphatase 95 (38-126) U/L Troponin I <0.012 (0.000-0.034) ng/mL Total Protein 7.8 (6.3-8.2) g/dL Albumin 4.4 (3.5-5.0) g/dL Amylase 58 (30-110) U/L Lipase 129 (23-300) U/L Urine Color Urine Appearance (Clear) Urine pH (5.0-8.0) Ur Specific [place] (1.001-1.035) Urine Protein (Negative) Urine Glucose (UA) (Negative) Urine Ketones (Negative) Urine Blood (Negative) Urine Nitrite (Negative) Urine Bilirubin (Negative) Urine Urobilinogen (<2.0) mg/dL Ur Leukocyte Esterase (Negative) Urine RBC (0-5) /hpf Urine WBC (0-5) /hpf Ur Squamous Epith Cells (0-4) /hpf Urine Bacteria (None) /hpf Urine Mucus (None) /hpf Disposition <Dwayne Knott - Last Filed: 03/27/20 06:02> <Earle Cook - Last Filed: 03/27/20 09:09> Clinical Impression: Acute calculous cholecystitis, Abdominal pain Disposition: ADMITTED IP TO THIS HOSP Condition: Fair Referrals: Darinel Camejo MD [Primary Care Provider] - 1-2 days
[2020-03-27 06:13] LABS: Basophils % (A) 0 %; Eosinophils # (A) 0.1 k/uL (0-0.7); Eosinophils % (A) 1 %; HCT 42.9 % (34.0-46.0); HGB 14.6 gm/dL (11.4-16.0); Lymphocytes % (A) 9 %; MCH 29.1 pg (25.0-35.0); MCHC 34.1 g/dL (31.0-37.0); MCV 85.4 fL (80.0-100.0); Mean Platelet Volume 7.1; Monocytes # (A) 0.4 k/uL (0-1.0); Monocytes % (A) 4 %; Neutrophils # (A) 9.3 k/uL (1.3-7.7); Neutrophils % (A) 85 %; Platelet Count 383 k/uL (150-450); RBC 5.02 m/uL (3.80-5.40); RDW 12.2 % (11.5-15.5); WBC 10.9 k/uL (3.8-10.6)
[2020-03-27 06:16] LABS: Appearance,Urine Clear (Clear); Bacteria,Urine Rare /hpf; Bilirubin,Urine Negative (Negative); Blood,Urine Negative (Negative); Color,Urine Light Yellow; Glucose,Urine (UA) Negative (Negative); Ketones,Urine Negative (Negative); Leukocyte Esterase,Urine Small (Negative); Mucus,Urine Rare /hpf; Nitrite,Urine Negative (Negative); Protein,Urine Trace (Negative); RBC,Urine 2 /hpf (0-5); Specific Gravity,Urine 1.016 (1.001-1.035); Squamous Epithelial Cell,Urine 1 /hpf (0-4); Urobilinogen,Urine <2.0 mg/dL (<2.0); WBC,Urine 9 /hpf (0-5)
[2020-03-27 06:23] LABS: Albumin 4.4 g/dL (3.5-5.0); Calcium 9.9 mg/dL (8.4-10.2); Potassium 4.2 mmol/L (3.5-5.1); Total Bilirubin 0.7 mg/dL (0.2-1.3); Total Protein 7.8 g/dL (6.3-8.2)
[2020-03-27 06:30] LABS: INR 0.9 (<1.2)
[2020-03-27 06:38] LABS: Partial Thromboplastin Time 21.9 sec (22.0-30.0)
[2020-03-27] MEDS ORDERED: LABETALOL 5 MG/ML VIAL MDV IVP STA (06:58)
--- NOTE | 2020-03-27 07:46 | US ---
EXAMINATION TYPE: US gallbladder DATE OF EXAM: 03/27/2020 COMPARISON: CT 03/27/2020 CLINICAL HISTORY: pain. Difficult and limited exam due to patient pain, overlying bowel gas, and jahaira ent body habitus EXAM MEASUREMENTS: Liver Length: 16.2 cm Gallbladder Wall: 0.4 cm CBD: 1.0 cm Right Kidney: 9.5 x 4.3 x 3.7 cm Pancreas: Obscured by bowel gas, duct visualized measuring 0.4 cm Liver: Increased attenuation, decreased visualization of vessels suggestive of fatty infiltrate Gallbladder: Stone visualized with neck measuring 1.9 cm. Possible adenomyomatosis visualized. Wall appears thickened with possible small amount of pericholecystic fluid visualized Evidence for sonographic Pope's sign: Yes CBD: Dilated Right Kidney: No hydronephrosis or masses seen IMPRESSION: 1. Nonspecific pattern to the liver compatible with fatty infiltration or hepatitis. 2. 1.9 cm gallstone. Thickened wall with small amount of pericholecystic fluid suggest acute cholecys titis. CBD dilated measuring 1.0 cm. Distal CBD stone or pathology suggested.
[2020-03-27] MEDS ORDERED: HYDROmorphone 1 MG/ML 1 ML SYRINGE IVP STA (08:03)
--- NOTE | 2020-03-27 08:16 | CT ---
EXAM: CT Angiography Chest With Intravenous Contrast CLINICAL HISTORY: pain TECHNIQUE: Axial computed tomographic angiography images of the chest with intravenous contrast. CTDI is 23 mGy and DLP is 662.3 mGy-cm. This CT exam was performed using one or more of the following dose reduction techniques: automated exposure control, adjustment of the mA and/or kV according to patient size, and/or use of iterative reconstruction technique. MIP reconstructed images were created and reviewed. COMPARISON: 05/18/2015. FINDINGS: Pulmonary arteries: Unremarkable. No pulmonary embolism. Aorta: Mild/moderate calcific and noncalcific atheromatous disease involving the intrathoracic aorta, as seen on the comparison study. No thoracic aortic aneurysm. Lungs: Mild diffuse bronchiectasis again noted, unchanged. No mass. Pleural space: Unremarkable. No significant effusion. No pneumothorax. Heart: Unremarkable. No cardiomegaly. No significant pericardial effusion. No evidence of RV dysfunction. Thyroid: Enlarged heterogeneous left thyroid gland is again noted resulting in right lateral deviation of the trachea. Bones/joints: Degenerative changes are again noted throughout the thoracic spine, as seen on the prior study. No acute fracture. No dislocation. Soft tissues: Unremarkable. Lymph nodes: Unremarkable. No enlarged lymph nodes. IMPRESSION: No acute findings in the visualized arteries of the chest. Other chronic findings, as above
--- NOTE | 2020-03-27 08:29 | CT ---
EXAM: CT Abdomen and Pelvis With Intravenous Contrast CLINICAL HISTORY: pain TECHNIQUE: Axial computed tomography images of the abdomen and pelvis with intravenous contrast. CTDI is 45.87 mGy and DLP is 2246.5 mGy-cm. This CT exam was performed using one or more of the following dose reduction techniques: automated exposure control, adjustment of the mA and/or kV according to patient size, and/or use of iterative reconstruction technique. COMPARISON: CT of the chest dated 05/18/2015. FINDINGS: Lung bases: Please refer to the CTA of the chest performed the same day ABDOMEN: Liver: Hepatomegaly, measuring up to 18.2 cm in greatest craniocaudad dimension. Gallbladder and bile ducts: Cholelithiasis in a prominent gallbladder with gallbladder wall thickening/edema and pericholecystic haziness raising concern for acute cholecystitis. Pancreas: Unremarkable. No mass. No ductal dilation. Spleen: Stable 1.4 cm cyst in the lateral aspect of the spleen, likely from prior trauma versus infection. A new 1.4 cm hypodense well marginated lesion is seen within the spleen, likely benign. Adrenals: Unremarkable. No mass. Kidneys and ureters: Unremarkable. No solid mass. No hydronephrosis. Stomach and bowel: Colonic diverticulosis. Subtle pericolonic fat stranding is seen adjacent to the proximal sigmoid colon in the region of multiple diverticula, which may represent early/mild acute diverticulitis in the correct clinical setting. Duodenal diverticulum, measuring up to 1.6 cm in greatest axial dimension. No obstruction. PELVIS: Appendix: No findings to suggest acute appendicitis. Bladder: Unremarkable. No mass. Reproductive: Unremarkable as visualized. ABDOMEN and PELVIS: Intraperitoneal space: Unremarkable. No free air. No significant fluid collection. Bones/joints: Status post left total hip arthroplasty. Bilateral sacroiliitis. Mild/moderate dextroscoliosis of the lumbar spine. Evaluation of the osseous structures demonstrates moderate degenerative changes. No acute fracture. No dislocation. Soft tissues: Unremarkable. Vasculature: Moderate at this chronic vascular calcifications involving the intra-abdominal aorta. No abdominal aortic aneurysm. Lymph nodes: Unremarkable. No enlarged lymph nodes. IMPRESSION: 1. Cholelithiasis in a prominent gallbladder with gallbladder wall thickening/edema and pericholecystic haziness raising concern for acute cholecystitis. Right upper quadrant ultrasound is recommended for further evaluation. 2. Colonic diverticulosis. Subtle pericolonic fat stranding is seen adjacent to the proximal sigmoid colon in the region of multiple diverticula, which may represent early/mild acute diverticulitis in the correct clinical setting. 3. Hepatomegaly.
[2020-03-27] MEDS ORDERED: PIPERACILLIN-TAZOBACTAM 3.375 GM in SODIUM CHLORIDE 0.9% 100 ML IVPB STA (09:03)
[2020-03-27] MEDS ORDERED: fentaNYL (PF) 50 MCG/ML 2 ML AMP IV STA (09:05)
[2020-03-27] MEDS ORDERED: PROCHLORPERAZINE INJ 10 MG/2 ML VIAL IVP STA (09:05)
[2020-03-27] MEDS ORDERED: NALOXONE 0.4 MG/ML 1 ML VIAL IV PRN (09:09)
[2020-03-27] MEDS: SODIUM CHLORIDE 0.9% 1,000 ML IV SCH ×2 (09:22→14:34)
--- NOTE | 2020-03-27 09:59 | P.GSHP ---
History of Present Illness H&P Date: 03/27/20 Chief Complaint: Right upper quadrant pain This is a 69-year-old who presents emergency room with complaints of abdominal pain. Patient's severe pain and nausea requiring. Patient also performed showed evidence of a 1.9 cm gallstone in the neck of the gallbladder with dae cholecystic fluid suggestive of acute cholecystitis Past Medical History Past Medical History: GERD/Reflux, Hyperlipidemia, Hypertension, Osteoarthritis (OA), Sleep Apnea/CPAP/BIPAP Additional Past Medical History / Comment(s): "Prediabetic",Gallstones,"has trouble emptying bladder and constant pain" History of Any Multi-Drug Resistant Organisms: None Reported Past Surgical History: Appendectomy, Bladder Surgery, Breast Surgery, Joint Replacement, Orthopedic Surgery Additional Past Surgical History / Comment(s): HEMORROIDS, SKIN CA REMOVAL,Lt hip replacement,chip rt breast Past Anesthesia/Blood Transfusion Reactions: No Reported Reaction Additional Past Anesthesia/Blood Transfusion Reaction / Comment(s): no hx blood transfusion Past Psychological History: No Psychological Hx Reported Smoking Status: Never smoker Past Alcohol Use History: None Reported Past Drug Use History: None Reported - Past Family History Mother Family Medical History: Rheumatoid Arthritis (RA) Father Family Medical History: Cancer Additional Family Medical History / Comment(s): sarcoma abdominal area Sister(s) Family Medical History: Cancer Additional Family Medical History / Comment(s): #1 sister ovarian and bladder CA,#2 sister breast CA Brother(s) Family Medical History: CVA/TIA Medications and Allergies Home Medications Medication Instructions Recorded Confirmed Type Meclizine [Antivert] 12.5 mg PO TID PRN 05/18/15 03/27/20 History Atorvastatin Calcium [Lipitor] 10 mg PO HS 11/03/18 03/27/20 History Metoprolol Succinate [Toprol XL] 25 mg PO DAILY 11/03/18 03/27/20 History Omeprazole 40 mg PO DAILY 03/27/20 03/27/20 History Sucralfate [Carafate] 1 gm PO TID 03/27/20 03/27/20 History lisinopriL [Zestril] 10 mg PO DAILY 03/27/20 03/27/20 History Allergies Allergy/AdvReac Type Severity Reaction Status Date / Time codeine Allergy Itching Verified 03/27/20 09:15 cyclobenzaprine Allergy facial Verified 03/27/20 09:15 swelling,itching latex Allergy Itching Verified 03/27/20 09:15 azithromycin [From Zithromax] AdvReac Abdominal Verified 03/27/20 09:15 Pain methylprednisolone AdvReac Abdominal Verified 03/27/20 09:15 Pain sulfamethoxazole AdvReac Abdominal Verified 03/27/20 09:15 [From Bactrim] Pain tramadol AdvReac Abdominal Verified 03/27/20 09:15 Pain trimethoprim [From Bactrim] AdvReac Abdominal Verified 03/27/20 09:15 Pain Surgical - Exam Vital Signs Temp Pulse Resp BP Pulse Ox 97.8 F 61 18 220/66 97 03/27/20 05:14 03/27/20 05:14 03/27/20 05:14 03/27/20 05:14 03/27/20 05:14 - General well developed, well nourished, no distress - Eyes PERRL - ENT normal pinna - Neck no masses - Respiratory normal expansion - Cardiovascular Rhythm: regular - Abdomen Tender right upper quadrant Abdomen: soft Results - Labs 03/27/20 05:55 03/27/20 05:55 Abnormal Lab Results - Last 24 Hours (Table) 03/27/20 03/27/20 03/27/20 Range/Units 05:55 05:55 05:55 WBC 10.9 H (3.8-10.6) k/uL Neutrophils # 9.3 H (1.3-7.7) k/uL APTT 21.9 L (22.0-30.0) sec BUN (7-17) mg/dL Creatinine (0.52-1.04) mg/dL Glucose (74-99) mg/dL Urine Protein Trace H (Negative) Ur Leukocyte Esterase Small H (Negative) Urine WBC 9 H (0-5) /hpf Urine Bacteria Rare H (None) /hpf Urine Mucus Rare H (None) /hpf 03/27/20 Range/Units 05:55 WBC (3.8-10.6) k/uL Neutrophils # (1.3-7.7) k/uL APTT (22.0-30.0) sec BUN 19 H (7-17) mg/dL Creatinine 1.32 H (0.52-1.04) mg/dL Glucose 170 H (74-99) mg/dL Urine Protein (Negative) Ur Leukocyte Esterase (Negative) Urine WBC (0-5) /hpf Urine Bacteria (None) /hpf Urine Mucus (None) /hpf Diabetes panel 03/27/20 Range/Units 05:55 Sodium 138 (137-145) mmol/L Potassium 4.2 (3.5-5.1) mmol/L Chloride 100 (98-107) mmol/L Carbon Dioxide 26 (22-30) mmol/L BUN 19 H (7-17) mg/dL Creatinine 1.32 H (0.52-1.04) mg/dL Glucose 170 H (74-99) mg/dL Calcium 9.9 (8.4-10.2) mg/dL AST 27 (14-36) U/L ALT 23 (4-34) U/L Alkaline Phosphatase 95 (38-126) U/L Total Protein 7.8 (6.3-8.2) g/dL Albumin 4.4 (3.5-5.0) g/dL Calcium panel 03/27/20 Range/Units 05:55 Calcium 9.9 (8.4-10.2) mg/dL Albumin 4.4 (3.5-5.0) g/dL Pituitary panel 03/27/20 Range/Units 05:55 Sodium 138 (137-145) mmol/L Potassium 4.2 (3.5-5.1) mmol/L Chloride 100 (98-107) mmol/L Carbon Dioxide 26 (22-30) mmol/L BUN 19 H (7-17) mg/dL Creatinine 1.32 H (0.52-1.04) mg/dL Glucose 170 H (74-99) mg/dL Calcium 9.9 (8.4-10.2) mg/dL Adrenal panel 03/27/20 Range/Units 05:55 Sodium 138 (137-145) mmol/L Potassium 4.2 (3.5-5.1) mmol/L Chloride 100 (98-107) mmol/L Carbon Dioxide 26 (22-30) mmol/L BUN 19 H (7-17) mg/dL Creatinine 1.32 H (0.52-1.04) mg/dL Glucose 170 H (74-99) mg/dL Calcium 9.9 (8.4-10.2) mg/dL Total Bilirubin 0.7 (0.2-1.3) mg/dL AST 27 (14-36) U/L ALT 23 (4-34) U/L Alkaline Phosphatase 95 (38-126) U/L Total Protein 7.8 (6.3-8.2) g/dL Albumin 4.4 (3.5-5.0) g/dL - Imaging US - abdomen: report reviewed (Acute cholecystitis with thickened gallbladder wall cholelithiasis) Assessment and Plan Assessment: Acute cholecystitis. Patient will undergo laparoscopic cholecystectomy
[2020-03-27] MEDS ORDERED: ESMOLOL 100 MG/10 ML VIAL ONE (11:00)
[2020-03-27] MEDS ORDERED: fentaNYL (PF) 50 MCG/ML 2 ML AMP ONE (11:00)
[2020-03-27] MEDS ORDERED: NALOXONE 0.4 MG/ML 1 ML VIAL ONE (11:00)
[2020-03-27] MEDS ORDERED: SUCCINYLCHOLINE CHLORIDE 100 MG/5 ML SYR IV ONE (11:00)
[2020-03-27] MEDS ORDERED: ROCURONIUM 10 MG/ML (5 ML VIAL) IV ONE (11:00)
[2020-03-27] MEDS ORDERED: LIDOCAINE 1% INJ 10MG/ML (20 ML MDV) ONE (11:00)
[2020-03-27] MEDS ORDERED: ceFAZolin 1,000 MG VIAL ONE (11:00)
[2020-03-27] MEDS ORDERED: MIDAZOLAM 2 MG/2 ML VIAL ONE (11:00)
[2020-03-27] MEDS ORDERED: SODIUM CHLORIDE 0.9% 100 ML BAG ONE (11:00)
[2020-03-27] MEDS ORDERED: IV FLUID CONTINUATION 900 ML IV ONE (11:00)
[2020-03-27] MEDS ORDERED: KETOROLAC 15 MG/ML 1 ML VIAL ONE (11:00)
[2020-03-27] MEDS ORDERED: PROPOFOL 10 MG/ML 20 ML VIAL IV ONE (11:00)
[2020-03-27] MEDS ORDERED: BUPIVACAIN-EPI 0.5%-1:200,000 30 ML VIAL SQ ONE ×2 (11:06→11:27)
[2020-03-27] MEDS ORDERED: HYDROmorphone 1 MG/ML 1 ML SYRINGE IVP PRN (16:09)
[2020-03-27] MEDS ORDERED: MECLIZINE 12.5 MG TAB PO PRN (17:35)
--- NOTE | 2020-03-27 19:24 | P.CONS ---
History of Present Illness - Reason for Consult Consult date: 03/27/20 Medical management Requesting physician: Gerald Sandoval - Chief Complaint Abdominal pain - History of Present Illness Consultation: This is a very pleasant 69-year-old patient, who follows with Dr. mahi [place]. Chronic stable medical conditions include GERD, hyperlipidemia, hypertension, osteoarthritis, obstructive sleep apnea does not use CPAP. Late last night patient started having progressive increasing pain in the right lower quadrant. Also some nausea. No fever no chills. Has a pain was not improving decided come to the ER. No fever was documented. Pain did not radiate. Localized to the quadrant. Abdominal ultrasound showed 1.9 sittin g the gallstone. Thickened wall. With somebody cholecystic fluid. CBD was 1 cm. Patient earlier today underwent laparoscopic cholecystectomy Dr. Sandoval. Postprocedure laying in bed. No nausea vomiting. Slight pain at the surgical site. Review of systems: GEN.: Tired EYES: None HEENT: None NECK: None RESPIRATORY: None CARDIOVASCULAR: None GASTROINTESTINAL: As above GENITOURINARY: None MUSCULOSKELETAL: None LYMPHATICS: None HEMATOLOGICAL: None PSYCHIATRY: None NEUROLOGICAL: None Past medical history to include: GERD, hypertension, hyperlipidemia, osteoarthritis, sleep apnea, has trouble emptying bladder and constant pain Social history: Lives with her son. No history of smoking and alcohol. Physical examination: VITAL SIGNS: 97.7, 93, 16, 134/77, 93% on 2 L GENERAL: BMI 40.3, reclining in bed, comfortable. EYES: Pupils equal. Conjunctiva normal. HEENT: External appearance of nose and ears normal, oral cavity grossly normal. NECK: JVD not raised; masses not palpable. HEART: First and second heart sounds are normal; no edema. LUNGS: Respiratory rate normal; clear to auscultation. ABDOMEN: Soft, some tenderness, no guarding rigidity, liver spleen not palpable, no masses palpable. PSYCH: Alert and oriented x3; mood and affect normal. MUSCULAR skeletal: Evidence of OA especially in the hands NEUROLOGICAL: Cranial nerves grossly intact; no facial asymmetry, power and sensation grossly intact. LYMPHATICS: No lymph nodes palpable in the axilla and neck INVESTIGATIONS, reviewed in the clinical context: White count 10.9 hemoglobin 14.6 platelets 383 increased neutrophils potassium 4.2 bun 19 creatinine 1.3 to Coronavirus [PCR]-not detected Gallbladder ultrasound-no specific pattern of the liver. 1.9 cm gallstone, thickened wall, small amount of pericholecystic fluid, CBD-1 cm Chest CTA-some DJD of the thoracic spine noted Computed tomography scan of the abdomen and pelvis with contrast-chronic diverticulosis hepatomegaly, Assessment and plan: -Symptomatic gallstones with acute cholecystitis, for by laparoscopic cholecystectomy -Probable nonalcoholic steatohepatitis, weight loss measures and follow-up with PCP -Morbid obesity BMI 40.3, weight loss measures and follow-up with PCP -Sigmoid diverticulosis-asymptomatic -GERD, continue with Prilosec -Hyperlipidemia, continue with Lipitor -Essential hypertension, continue with Toprol-XL -Primary osteoarthritis, use Tylenol when necessary -Obstructive sleep apnea does not use CPAP Care was discussed with the patient. Diet is being advanced per Dr. Sandoval. Will DC IV fluids later tonight. Continue with Zosyn for now. Repeat labs in the morning. Care was discussed with the patient question also Thank you Dr. Sandoval Past Medical History Past Medical History: GERD/Reflux, Hyperlipidemia, Hypertension, Osteoarthritis (OA), Sleep Apnea/CPAP/BIPAP Additional Past Medical History / Comment(s): "Prediabetic",Gallstones,"has trouble emptying bladder and constant pain" History of Any Multi-Drug Resistant Organisms: None Reported Past Surgical History: Appendectomy, Bladder Surgery, Breast Surgery, Cholecystectomy, Joint Replacement, Orthopedic Surgery Additional Past Surgical History / Comment(s): HEMORROIDS, SKIN CA REMOVAL,Lt hip replacement,chip rt breast, cholecystectomy 03/27/2020 Past Anesthesia/Blood Transfusion Reactions: No Reported Reaction Additional Past Anesthesia/Blood Transfusion Reaction / Comm: no hx blood transfusion Past Psychological History: No Psychological Hx Reported Smoking Status: Never smoker Past Alcohol Use History: None Reported Past Drug Use History: None Reported - Past Family History Mother Family Medical History: Rheumatoid Arthritis (RA) Father Family Medical History: Cancer Additional Family Medical History / Comment(s): sarcoma abdominal area Sister(s) Family Medical History: Cancer Additional Family Medical History / Comment(s): #1 sister ovarian and bladder CA,#2 sister breast CA Brother(s) Family Medical History: CVA/TIA Medications and Allergies Home Medications Medication Instructions Recorded Confirmed Type Meclizine [Antivert] 12.5 mg PO TID PRN 05/18/15 03/27/20 History Atorvastatin Calcium [Lipitor] 10 mg PO HS 11/03/18 03/27/20 History Metoprolol Succinate [Toprol XL] 25 mg PO DAILY 11/03/18 03/27/20 History Omeprazole 40 mg PO DAILY 03/27/20 03/27/20 History Sucralfate [Carafate] 1 gm PO TID 03/27/20 03/27/20 History lisinopriL [Zestril] 10 mg PO DAILY 03/27/20 03/27/20 History Allergies Allergy/AdvReac Type Severity Reaction Status Date / Time codeine Allergy Itching Verified 03/27/20 15:00 cyclobenzaprine Allergy facial Verified 03/27/20 15:00 swelling,itching latex Allergy Itching Verified 03/27/20 15:00 azithromycin [From Zithromax] AdvReac Abdominal Verified 03/27/20 15:00 Pain methylprednisolone AdvReac Abdominal Verified 03/27/20 15:00 Pain sulfamethoxazole AdvReac Abdominal Verified 03/27/20 15:00 [From Bactrim] Pain tramadol AdvReac Abdominal Verified 03/27/20 15:00 Pain trimethoprim [From Bactrim] AdvReac Abdominal Verified 03/27/20 15:00 Pain Physical Exam Vitals: Vital Signs Temp Pulse Pulse Resp BP BP Pulse Ox 03/27/20 17:50 100 16 157/82 91 L 03/27/20 16:51 102 H 16 165/82 94 L 03/27/20 15:45 94 16 175/80 97 03/27/20 15:15 95 16 160/76 94 L 03/27/20 15:00 98 16 160/79 93 L 03/27/20 14:45 93 16 157/82 91 L 03/27/20 14:30 97.7 F 93 16 134/77 93 L 03/27/20 14:15 62 16 147/66 96 03/27/20 13:45 63 16 145/63 96 03/27/20 13:15 58 L 20 128/60 97 03/27/20 13:00 69 20 129/62 97 03/27/20 12:45 65 20 166/83 97 03/27/20 12:30 67 20 159/69 97 03/27/20 12:15 70 20 160/76 96 03/27/20 12:01 97.1 F L 68 20 175/77 92 L 03/27/20 09:24 98 F 77 18 160/80 99 03/27/20 07:36 78 18 166/83 98 03/27/20 07:01 96 16 204/109 96 03/27/20 05:14 97.8 F 61 18 220/66 97 Intake and Output 03/27/20 03/27/20 03/27/20 06:59 14:59 22:59 Intake Total 900 240 Output Total 5 Balance 895 240 Intake: IV 900 Oral 240 Output: Estimated Blood Loss 5 Other: # Voids 1 Weight 106.594 kg 106.594 kg Results CBC & Chem 7: 03/27/20 05:55 03/27/20 05:55 Labs: Abnormal Lab Results - Last 24 Hours (Table) 03/27/20 03/27/20 03/27/20 Range/Units 05:55 05:55 05:55 WBC 10.9 H (3.8-10.6) k/uL Neutrophils # 9.3 H (1.3-7.7) k/uL APTT 21.9 L (22.0-30.0) sec BUN (7-17) mg/dL Creatinine (0.52-1.04) mg/dL Glucose (74-99) mg/dL Urine Protein Trace H (Negative) Ur Leukocyte Esterase Small H (Negative) Urine WBC 9 H (0-5) /hpf Urine Bacteria Rare H (None) /hpf Urine Mucus Rare H (None) /hpf 03/27/20 Range/Units 05:55 WBC (3.8-10.6) k/uL Neutrophils # (1.3-7.7) k/uL APTT (22.0-30.0) sec BUN 19 H (7-17) mg/dL Creatinine 1.32 H (0.52-1.04) mg/dL Glucose 170 H (74-99) mg/dL Urine Protein (Negative) Ur Leukocyte Esterase (Negative) Urine WBC (0-5) /hpf Urine Bacteria (None) /hpf Urine Mucus (None) /hpf
[2020-03-27] MEDS ORDERED: PIPERACILLIN-TAZOBACTAM 3.375 GM in SODIUM CHLORIDE 0.9% 100 ML IVPB SCH (19:30)
[2020-03-27] MEDS ORDERED: ATORVASTATIN 10 MG TAB PO SCH (21:00)
[2020-03-27] MEDS: SUCRALFATE 1 GM TAB PO SCH (21:26)
[2020-03-28] MEDS: PIPERACILLIN-TAZOBACTAM 3.375 GM in SODIUM CHLORIDE 0.9% 100 ML IVPB SCH ×2 (03:21→12:11)
[2020-03-28] MEDS: SODIUM CHLORIDE 0.9% 1,000 ML IV SCH ×2 (03:22→12:10)
[2020-03-28] MEDS: HYDROcodone/APAP 5-325MG 1 EACH TAB PO PRN ×3 (03:30→16:06)
[2020-03-28 03:54] VITALS: TEMP 98
[2020-03-28 05:30] LABS: Basophils % (A) 0 %; Eosinophils # (A) 0.1 k/uL (0-0.7); Eosinophils % (A) 1 %; HCT 37.3 % (34.0-46.0); HGB 12.1 gm/dL (11.4-16.0); Lymphocytes # (A) 0.8 k/uL (1.0-4.8); Lymphocytes % (A) 5 %; MCH 28.2 pg (25.0-35.0); MCHC 32.4 g/dL (31.0-37.0); MCV 86.9 fL (80.0-100.0); Mean Platelet Volume 7.8; Monocytes # (A) 0.8 k/uL (0-1.0); Monocytes % (A) 5 %; Neutrophils # (A) 14.3 k/uL (1.3-7.7); Neutrophils % (A) 89 %; Platelet Count 295 k/uL (150-450); RBC 4.29 m/uL (3.80-5.40); RDW 12.7 % (11.5-15.5); WBC 16.1 k/uL (3.8-10.6)
[2020-03-28 05:42] LABS: Calcium 8.8 mg/dL (8.4-10.2); Potassium 4.2 mmol/L (3.5-5.1)
[2020-03-28] MEDS ORDERED: SODIUM CHLORIDE 0.9% 500 ML 250 ML IV ONE (06:59)
[2020-03-28] MEDS ORDERED: PANTOPRAZOLE 40 MG TABLET PO SCH (07:30)
[2020-03-28] MEDS: SUCRALFATE 1 GM TAB PO SCH ×2 (08:24→16:06)
[2020-03-28] MEDS ORDERED: lisinopriL 10 MG TAB PO SCH (09:00)
[2020-03-28] MEDS ORDERED: METOPROLOL SUCCINATE (ER) 25 MG TAB.ER.24H PO SCH (09:00)
[2020-03-28] MEDS ORDERED: ENOXAPARIN 40 MG/0.4 ML SYRINGE SQ SCH (09:00)
--- NOTE | 2020-03-28 10:43 | P.PN ---
Subjective This is a very pleasant 69-year-old patient, who follows with Dr. mahi [place]. Chronic stable medical conditions include GERD, hype rlipidemia, hypertension, osteoarthritis, obstructive sleep apnea does not use CPAP. Late last night patient started having progressive increasing pain in the right lower quadrant. Also some nausea. No fever no chills. Has a pain was not improving decided come to the ER. No fever was documented. Pain did not radiate. Localized to the quadrant. Abdominal ultrasound showed 1.9 sitting the gallstone. Thickened wall. With somebody cholecystic fluid. CBD was 1 cm. Patient earlier today underwent laparoscopic cholecystectomy Dr. Sandoval. Postprocedure laying in bed. No nausea vomiting. Slight pain at the surgical site. Subjective:this is the first day I am taking care of the patient 03/28/2020 This is a pleasant 69 years old female who presents with signs and symptoms of acute cholecystitis status post laparoscopic cholecystectomy yesterday on 01/24 and today is postoperative day #1 she has minimal abdominal pain at the surgical site this morning after she ate which is expected. No nausea vomiting. She does not pass bowel movement or gas yet. Vitals are stable. Blood pressure on the high side 164/75 Labs showing worsening leukocytosis at 16.1 which is most likely reactive. BMP is unremarkable and creatinine is at baseline at 1.2 Note normal saline to 50 mL/h and started the patient on Norvasc 5 mg Objective - Vital Signs Vital signs: Vital Signs Temp 98 F 03/28/20 07:45 Pulse 83 03/28/20 07:45 Resp 18 03/28/20 07:45 BP 164/75 03/28/20 07:45 Pulse Ox 93 L 03/28/20 07:45 Intake & Output 03/27/20 03/28/20 03/28/20 18:59 06:59 18:59 Intake Total 1140 Output Total 5 350 Balance 1135 -350 Weight 106.594 kg Intake: IV 900 Oral 240 Output: Urine 350 Estimated Blood Loss 5 Other: Voiding Method Toilet # Voids 1 1 - Exam -GENERAL: The patient is alert and oriented x3, not in any acute distress. Obese HEENT: Pupils are round and equally reacting to light. EOMI. No scleral icterus. No conjunctival pallor. Normocephalic, atraumatic. No pharyngeal erythema. No t hyromegaly. CARDIOVASCULAR: S1 and S2 present. No murmurs, rubs, or gallops. PULMONARY: Chest is clear to auscultation, no wheezing or crackles. -ABDOMEN: Soft, RUQ tenderness, nontender, nondistended, normoactive bowel sounds. No palpable organomegaly. Laparoscopic cholecystectomy ports are closed and healing MUSCULOSKELETAL: No joint swelling or deformity. EXTREMITIES: No cyanosis, clubbing, or pedal edema. NEUROLOGICAL: Gross neurological examination did not reveal any focal deficits. SKIN: No rashes. No petechiae - Labs CBC & Chem 7: 03/28/20 05:19 03/28/20 05:19 Labs: Abnormal Lab Results - Last 24 Hours (Table) 03/28/20 03/28/20 Range/Units 05:19 05:19 WBC 16.1 H (3.8-10.6) k/uL Neutrophils # 14.3 H (1.3-7.7) k/uL Lymphocytes # 0.8 L (1.0-4.8) k/uL BUN 20 H (7-17) mg/dL Creatinine 1.24 H (0.52-1.04) mg/dL Glucose 131 H (74-99) mg/dL Assessment and Plan Assessment: -Acute cholecystitis status post laparoscopic cholecystectomy -Uncontrolled hypertension -Hepatomegaly -Morbid obesity BMI 40.3, weight loss measures and follow-up with PCP -Sigmoid diverticulosis-asymptomatic -GERD, continue with Prilosec -Hyperlipidemia, continue with Lipitor -Essential hypertension, continue with Toprol-XL -Primary osteoarthritis, use Tylenol when necessary -Obstructive sleep apnea does not use CPAP Plan: This is a pleasant 69 years old female who presents with cholecystitis status post cholecystectomy. Continue with Zosyn. Continue gentle hydration. And Norvasc. Surgery primary Team on the case Labs and medication were reviewed.. Continue same treatment. Continue with symptomatic treatment. Resume home medication. Monitor lytes and vitals. DVT and GI prophylaxis. Further recommendationsas per clinical course of the patient DVT prophylaxis: Subcutaneous Lovenox GI Prophylaxis: Ppi We recommend patient follow up with her primary care doctor Dr. matos in 1 week, patient was instructed with the same Thank you for consulting us
[2020-03-28] MEDS ORDERED: amLODIPine 5 MG TAB PO SCH (10:45)
[2020-03-28 11:51] VITALS: PULSE 79; RESP 16
[2020-03-28 14:59] VITALS: BP 168/71
--- NOTE | 2020-03-28 15:05 | P.DS ---
Providers Date of admission: 03/27/20 09:10 Expected date of discharge: 03/28/20 Attending physician: Gerald Sandoval Consults: 03/27/20 14:06 Consult Physician Routine Consulting Provider: Heath Catherine Consult Reason/Comments: Medical management Do you want consulting provider notified?: Yes Primary care physician: Darinel Camejo MD Hospital Course: Discharge diagnosis 1. Acute cholecystitis status post laparoscopic cholecystectomy 2. Leukocytosis likely secondary to acute cholecystitis. Patient discharged with antibiotics. Hospital course This is a 69-year-old who presents emergency room with complaints of abdominal pain. Patient's severe pain and nausea requiring. Patient also performed showed evidence of a 1.9 cm gallstone in the neck of the gallbladder with pericholecystic fluid suggestive of acute cholecystitis. Patient is status post laparoscopic cholecystectomy. Patient tolerated surgery well. Her pain is controlled. She is tolerating diet. She is up and ambulating. She is afebrile. Patient is stable for discharge. Please refer to chart for any further details. Physician [employer] Brusher note has been reviewed by physician. Signing provider agrees with the documented findings, assessment, and plan of care. Patient Condition at Discharge: Stable Plan - Discharge Summary Discharge Rx Participant: Yes New Discharge Prescriptions: New Docusate [Colace] 100 mg PO BID #30 capsule Levofloxacin [Levaquin] 500 mg PO DAILY 7 Days #7 tab HYDROcodone/APAP 5-325MG [[place] 5-325] 1 tab PO Q6HR PRN 3 Days #12 tab PRN Reason: Pain No Action Meclizine [Antivert] 12.5 mg PO TID PRN PRN Reason: Vertigo Metoprolol Succinate [Toprol XL] 25 mg PO DAILY Atorvastatin Calcium [Lipitor] 10 mg PO HS lisinopriL [Zestril] 10 mg PO DAILY Omeprazole 40 mg PO DAILY Sucralfate [Carafate] 1 gm PO TID Discharge Medication List Meclizine [Antivert] 12.5 mg PO TID PRN 05/18/15 [History] Atorvastatin Calcium [Lipitor] 10 mg PO HS 11/03/18 [History] Metoprolol Succinate [Toprol XL] 25 mg PO DAILY 11/03/18 [History] Omeprazole 40 mg PO DAILY 03/27/20 [History] Sucralfate [Carafate] 1 gm PO TID 03/27/20 [History] lisinopriL [Zestril] 10 mg PO DAILY 03/27/20 [History] Docusate [Colace] 100 mg PO BID #30 capsule 03/28/20 [Rx] HYDROcodone/APAP 5-325MG [[place] 5-325] 1 tab PO Q6HR PRN 3 Days #12 tab 03/28/20 [Rx] Levofloxacin [Levaquin] 500 mg PO DAILY 7 Days #7 tab 03/28/20 [Rx] Follow up Appointment(s)/Referral(s): Darinel Camejo MD [Primary Care Provider] - 1-2 days Gerald Sandoval MD [STAFF PHYSICIAN] - 1 Week Activity/Diet/Wound Care/Special Instructions: Medicine to complete discharge med rec No driving while taking [place] No lifting over 10 pounds You may shower. No soaking or tub baths for 2 weeks Very light activity until you are reevaluated at your follow up appointment with your surgeon Discharge Disposition: HOME SELF-CARE
--- NOTE | 2020-04-06 08:30 | P.OP ---
Date of Procedure: 03/27/20 Preoperative Diagnosis: Cholecystitis Postoperative Diagnosis: Cholecystitis Procedure(s) Performed: Laparoscopic cholecystectomy Anesthesia: JUNG Surgeon: Gerald Sandoval Estimated Blood Loss (ml): 5 Pathology: other (O gallbladder) Condition: stable Disposition: PACU Description of Procedure: The patient was placed on the operating table. The patient received a general endotracheal tube anesthesia. The patients abdomen was prepped and draped in the usual sterile fashion. Through an infraumbilical stab incision, the fascia of the anterior abdominal wall was grasped with a pair of Kochers and then the Veress needle was placed in the peritoneal cavity. Position of the Veress needle was confirmed with positive drop test. The abdomen was then insufflated. After adequate insufflation, the 10 mm trocar was placed in the peritoneal cavity. Following this the laparoscope was placed in the peritoneal cavity. The patient was placed in the head-up, right side up position and then a 5 mm trocar was placed in the right lateral and right subcostal position under direct visualization. A 8 mm trocar was placed in the epigastric position. The gallbladder was grasped in the fundus and infundibulum. Traction on the gallbladder was placed in the lateral and the cephalad positions. The triangle of Calot was visualized.. The cystic duct was bluntly dissected until the union of the cystic duct and common bile duct was seen. A critical view of safety was achieved. The cystic duct was then divided and sealed with the Harmonic scissors. A PDS Endoloop was then placed throughout the cystic duct stump. The cystic artery divided and sealed with the Harmonic scissors. The gallbladder was then removed from the liver bed using Harmonic scissors. The gallbladder was then extracted through the epigastric port site. Operative field was checked for any bleeding spots and Harmonic scissors was used to coagulate the liver bed. The abdomen was irrigated. The trocars were removed. The skin was closed using interrupted 3-0 Vicryl suture. Dermabond dressing were applied. The patient tolerated the procedure well.
== END 2020-03-28 16:40 | disposition home or self-care (01) ==
LOC: EC 05:04 → 6PED 09:10
PROVIDERS: ADMIT Surgery; ATTEND Surgery
DX: K80.12 Calculus of gallbladder with acute and chronic cholecystitis without obstruction (principal); K21.9 Gastro-esophageal reflux disease without esophagitis; E78.5 Hyperlipidemia, unspecified; I10 Essential (primary) hypertension; R73.03 Prediabetes; G47.33 Obstructive sleep apnea (adult) (pediatric); E66.01 Morbid (severe) obesity due to excess calories; Z68.41 Body mass index [BMI] 40.0-44.9, adult; M19.91 Primary osteoarthritis, unspecified site; K57.30 Diverticulosis of large intestine without perforation or abscess without bleeding; R16.0 Hepatomegaly, not elsewhere classified; D72.829 Elevated white blood cell count, unspecified; R42 Dizziness and giddiness; Z90.49 Acquired absence of other specified parts of digestive tract; Z90.710 Acquired absence of both cervix and uterus; Z79.82 Long term (current) use of aspirin; Z79.899 Other long term (current) drug therapy; Z88.5 Allergy status to narcotic agent; Z88.2 Allergy status to sulfonamides; Z88.8 Allergy status to other drugs, medicaments and biological substances; Z88.1 Allergy status to other antibiotic agents; Z91.040 Latex allergy status; Z85.828 Personal history of other malignant neoplasm of skin; Z96.642 Presence of left artificial hip joint; Z82.61 Family history of arthritis; Z80.41 Family history of malignant neoplasm of ovary; Z80.52 Family history of malignant neoplasm of bladder; Z80.3 Family history of malignant neoplasm of breast; Z82.3 Family history of stroke; Z20.822 Contact with and (suspected) exposure to COVID-19
CPT/HCPCS: 47562; 99285; 36415; 88304; 80053; 80048; 82150; 83605; 83690; 84484; 85025 ×2; 85610; 85730; 81001; 87635; 76705; 71275; 74177; G0378 ×2; J2543 ×2; J2250; J2270; J0780; J2310; J2405; J0690; J2001; J1650; J3010; J1170; J1885; J0330; J2704; C9113; Q9967

== ENCOUNTER 2020-05-02 19:26 | Inpatient (IN) | payer MEDICARE, OTHER ==
[2020-05-02 19:46] LABS: Glucose,Whole Blood 165 mg/dL (75-99)
[2020-05-02] MEDS ORDERED: SODIUM CHLORIDE 0.9% 1,000 ML IV STA (19:52)
[2020-05-02 20:03] LABS: Basophils # (A) 0.1 k/uL (0-0.2); Basophils % (A) 1 %; Eosinophils # (A) 0.1 k/uL (0-0.7); Eosinophils % (A) 1 %; HCT 42.3 % (34.0-46.0); HGB 14.5 gm/dL (11.4-16.0); Lymphocytes % (A) 25 %; MCHC 34.3 g/dL (31.0-37.0); MCV 84.6 fL (80.0-100.0); Mean Platelet Volume 7.2; Monocytes # (A) 0.5 k/uL (0-1.0); Monocytes % (A) 6 %; Neutrophils # (A) 5.4 k/uL (1.3-7.7); Neutrophils % (A) 66 %; Platelet Count 343 k/uL (150-450); RDW 12.4 % (11.5-15.5); WBC 8.1 k/uL (3.8-10.6)
--- NOTE | 2020-05-02 20:11 | CT ---
EXAMINATION TYPE: CT brain wo con for TPA DATE OF EXAM: 05/02/2020 COMPARISON: None available. HISTORY: Acute stroke. CT DLP: 1039.8 mGycm Automated exposure control for dose reduction was used. FINDINGS: There is no acute intracranial hemorrhage, midline shift or hydrocephalus. The david-white differentia tion and white matter are maintained. The visualized paranasal sinuses and mastoid air cells are adeq uately aerated. The calvarium is intact. IMPRESSION: NO ACUTE INTRACRANIAL ABNORMALITY.
[2020-05-02 20:15] LABS: Albumin 4.6 g/dL (3.5-5.0); Calcium 9.9 mg/dL (8.4-10.2); Potassium 4.3 mmol/L (3.5-5.1); Total Bilirubin 0.6 mg/dL (0.2-1.3)
[2020-05-02 20:21] LABS: INR 0.9 (<1.2); Partial Thromboplastin Time 21.4 sec (22.0-30.0); Prothrombin Time 10.2 sec (9.0-12.0)
--- NOTE | 2020-05-02 20:39 | CT ---
EXAMINATION TYPE: CT angio head neck DATE OF EXAM: 05/02/2020 HISTORY: Neuro deficits. COMPARISON: None available. CT DLP: 779.1 mGycm. Automated Exposure Control for Dose Reduction was Utilized. TECHNIQUE: CTA scan of the head/neck is performed with IV Contrast, patient injected with 65ml mL of Isovue 370, axial images are obtained, coronal and sagittal reformatted images are reviewed. Three-D reconstructed images are created on an independent workstation and reviewed. FINDINGS: There is moderate atherosclerotic plaques in the bilateral common carotid bulbs. There is moderate st enosis of the bilateral proximal ICAs. Otherwise the remainder of the bilateral cervical carotid arteries are grossly patent without occlusi on or significant stenosis elsewhere. No aneurysm. The visualized great vessels are grossly intact. The bilateral cervical ventricle arteries are grossly patent without occlusion, high-grade stenosis o r aneurysm. The intracranial arteries are grossly intact without occlusion, significant stenosis or aneurysm. The [place] is grossly unremarkable. There is incidental note of a large 6.1 cm thyroid nodule. The visualized upper lungs are grossly unr emarkable. IMPRESSION: No acute abnormality of the CTA head/neck. 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 Incidental large left thyroid nodule. Consider outpatient ultrasound for further evaluation.
--- NOTE | 2020-05-02 21:11 | XR ---
EXAMINATION TYPE: XR chest 2V DATE OF EXAM: 05/02/2020 COMPARISON: 05/18/2015. HISTORY: Altered mental status. TECHNIQUE: Frontal and lateral views of the chest are obtained. FINDINGS: There is no focal air space opacity, pleural effusion, or pneumothorax seen. Moderate card iomegaly. The osseous structures are intact. IMPRESSION: No acute cardiopulmonary process. Cardiomegaly.
[2020-05-02] MEDS ORDERED: hydrALAZINE HCL 20 MG/ML 1 ML VIAL IVP STA (21:19)
[2020-05-02] MEDS ORDERED: ASPIRIN 81 MG PO STA (21:20)
[2020-05-02] MEDS ORDERED: MORPHINE SULFATE 2 MG/ML SYRINGE IVP STA (21:21)
[2020-05-02] MEDS ORDERED: ONDANSETRON 4 MG/2 ML VIAL IVP STA (21:21)
--- NOTE | 2020-05-02 21:21 | ED ---
Neuro HPI - General Chief Complaint: Neuro Symptoms/Deficit Stated Complaint: Confused,High BP Time Seen by Provider: 05/02/20 19:47 Source: patient Mode of arrival: ambulatory Limitations: no limitations - History of Present Illness Is the patient presenting with stroke symptoms?: Yes Last Known Well Date: 05/02/20 Initial Comments: This 69-year-old female presents with expressive aphasia. This started at 6 PM this evening. It apparently was witnessed by her significant other and they presented to the emergency department 2 hours later. She is complaining of a slight left frontal headache. She also is complaining of mild nausea. She has some chronic right-sided numbness. She apparently had a CVA versus TIA 3 years ago as well. It is somewhat difficult to ascertain perfect history due to her expressive aphasia but she still is able to answer many questions fairly well. She does seem to understand what is occurring as well. There is no weakness of extremities. She denies any problems with her vision. No other complaints or modifying factors. - Related Data Home Medications: Home Medications Medication Instructions Recorded Confirmed Meclizine [Antivert] 12.5 mg PO TID PRN 05/18/15 05/02/20 Atorvastatin Calcium [Lipitor] 10 mg PO HS 11/03/18 05/02/20 Metoprolol Succinate [Toprol XL] 25 mg PO DAILY 11/03/18 05/02/20 Omeprazole 40 mg PO DAILY 03/27/20 05/02/20 Sucralfate [Carafate] 1 gm PO TID 03/27/20 05/02/20 lisinopriL [Prinivil] 40 mg PO DAILY 05/02/20 05/02/20 Allergies/Adverse Reactions: Allergies Allergy/AdvReac Type Severity Reaction Status Date / Time amlodipine Allergy LEG Verified 05/02/20 20:52 SWELLING, HAND NUMBNESS codeine Allergy Itching Verified 05/02/20 19:35 cyclobenzaprine Allergy facial Verified 05/02/20 19:35 swelling,itching latex Allergy Itching Verified 05/02/20 19:35 azithromycin [From Zithromax] AdvReac Abdominal Verified 05/02/20 19:35 Pain methylprednisolone AdvReac Abdominal Verified 05/02/20 19:35 Pain sulfamethoxazole AdvReac Abdominal Verified 05/02/20 19:35 [From Bactrim] Pain tramadol AdvReac Abdominal Verified 05/02/20 19:35 Pain trimethoprim [From Bactrim] AdvReac Abdominal Verified 05/02/20 19:35 Pain Review of Systems ROS Statement: Those systems with pertinent positive or pertinent negative responses have been documented in the HPI. ROS Other: All systems not noted in ROS Statement are negative. General Exam - General Exam Comments Initial Comments: GENERAL: The patient is well nourished and well hydrated. VITAL SIGNS: Heart rate, blood pressure, respiratory rate reviewed as recorded in nurse's notes. EYES: Pupils are round and reactive. Extraocular movements are intact. No conjunctival / lid redness or swelling. ENT: No external evidence of injury, swelling, or ecchymosis. Airway is patent. Throat is clear. NECK: Nontender. No swelling or evidence of injury. No subcutaneous emphysema. Trachea is midline. No thyroid mass. HEART: Regular rate and rhythm. Good peripheral pulses. LUNGS/CHEST: Breath sounds clear and equal bilaterally. No rales, rhonchi, or wheezes. No ecchymosis, subcutaneous emphysema, or tenderness. ABDOMEN: Abdomen soft without tenderness. No palpable masses or organomegaly. No peritoneal signs. No abdominal wall swelling or ecchymosis. EXTREMITIES: No extremity tenderness. Normal muscle tone and function. No thoracolumbar tenderness. NEUROLOGIC: Sensation is grossly intact. Cranial nerve exam reveals face is symmetrical, tongue is midline. Patient has obvious expressive aphasia. SKIN: No abrasions or ecchymosis is noted. No induration or masses noted. PSYCHIATRIC: Alert and oriented. Appropriate behavior and judgment. Limitations: no limitations Stroke MDM - Lab Data Result diagrams: 05/02/20 19:53 05/02/20 19:53 Lab Results 05/02/20 05/02/20 05/02/20 Range/Units 19:45 19:53 19:53 WBC 8.1 (3.8-10.6) k/uL RBC 5.00 (3.80-5.40) m/uL Hgb 14.5 (11.4-16.0) gm/dL Hct 42.3 (34.0-46.0) % MCV 84.6 (80.0-100.0) fL MCH 29.0 (25.0-35.0) pg MCHC 34.3 (31.0-37.0) g/dL RDW 12.4 (11.5-15.5) % Plt Count 343 (150-450) k/uL MPV 7.2 Neutrophils % 66 % Lymphocytes % 25 % Monocytes % 6 % Eosinophils % 1 % Basophils % 1 % Neutrophils # 5.4 (1.3-7.7) k/uL Lymphocytes # 2.0 (1.0-4.8) k/uL Monocytes # 0.5 (0-1.0) k/uL Eosinophils # 0.1 (0-0.7) k/uL Basophils # 0.1 (0-0.2) k/uL PT 10.2 (9.0-12.0) sec INR 0.9 (<1.2) APTT 21.4 L (22.0-30.0) sec Sodium (137-145) mmol/L Potassium (3.5-5.1) mmol/L Chloride (98-107) mmol/L Carbon Dioxide (22-30) mmol/L Anion Gap mmol/L BUN (7-17) mg/dL Creatinine (0.52-1.04) mg/dL Est GFR (CKD-EPI)AfAm (>60 ml/min/1.73 sqM) Est GFR (CKD-EPI)NonAf (>60 ml/min/1.73 sqM) Glucose (74-99) mg/dL POC Glucose (mg/dL) 165 H (75-99) mg/dL POC Glu Tape Librarian ID Brittany Castanon Calcium (8.4-10.2) mg/dL Total Bilirubin (0.2-1.3) mg/dL AST (14-36) U/L ALT (4-34) U/L Alkaline Phosphatase (38-126) U/L Troponin I (0.000-0.034) ng/mL Total Protein (6.3-8.2) g/dL Albumin (3.5-5.0) g/dL 05/02/20 05/02/20 Range/Units 19:53 19:53 WBC (3.8-10.6) k/uL RBC (3.80-5.40) m/uL Hgb (11.4-16.0) gm/dL Hct (34.0-46.0) % MCV (80.0-100.0) fL MCH (25.0-35.0) pg MCHC (31.0-37.0) g/dL RDW (11.5-15.5) % Plt Count (150-450) k/uL MPV Neutrophils % % Lymphocytes % % Monocytes % % Eosinophils % % Basophils % % Neutrophils # (1.3-7.7) k/uL Lymphocytes # (1.0-4.8) k/uL Monocytes # (0-1.0) k/uL Eosinophils # (0-0.7) k/uL Basophils # (0-0.2) k/uL PT (9.0-12.0) sec INR (<1.2) APTT (22.0-30.0) sec Sodium 138 (137-145) mmol/L Potassium 4.3 (3.5-5.1) mmol/L Chloride 102 (98-107) mmol/L Carbon Dioxide 23 (22-30) mmol/L Anion Gap 13 mmol/L BUN 24 H (7-17) mg/dL Creatinine 1.32 H (0.52-1.04) mg/dL Est GFR (CKD-EPI)AfAm 47 (>60 ml/min/1.73 sqM) Est GFR (CKD-EPI)NonAf 41 (>60 ml/min/1.73 sqM) Glucose 172 H (74-99) mg/dL POC Glucose (mg/dL) (75-99) mg/dL POC Glu Tape Librarian ID Calcium 9.9 (8.4-10.2) mg/dL Total Bilirubin 0.6 (0.2-1.3) mg/dL AST 29 (14-36) U/L ALT 23 (4-34) U/L Alkaline Phosphatase 91 (38-126) U/L Troponin I <0.012 (0.000-0.034) ng/mL Total Protein 8.0 (6.3-8.2) g/dL Albumin 4.6 (3.5-5.0) g/dL - Medical Decision Making The patient was seen and examined. All diagnostics were reviewed. An IV was established. Her computed tomography scan of the brain did not show any acute process. The CTA of the head and neck also did not show any major abnormalities. Please see report for details. The laboratory shows a slight renal insufficiency as well as a slight hyperglycemia. On recheck, her symptoms are the same. Her blood pressure did increase up to 207 systolic. She is given 5 of hydralazine. She is also given 2 mg of morphine for her headache and 4 mg of Zofran intravenously. She is given an aspirin orally. Case is discussed with Dr. Matos from interventional radiology. He does not feel as though the patient needs TPA at this time. The patient's NIH score is essentially to due to the expressive aphasia. This is discussed with the patient is well as her significant other. Her EKG does show a normal sinus rhythm at a rate of 79. There is no acute ST-T wave changes identified. The NM intervals 154, QRS duration is 70, and the QTC intervals 444. Case is discussed with Dr. Catherine and he is agreeable with admission with neurology to consult. Past Medical History Past Medical History: CVA/TIA, GERD/Reflux, Hyperlipidemia, Hypertension, Osteoarthritis (OA), Sleep Apnea/CPAP/BIPAP Additional Past Medical History / Comment(s): "Prediabetic",Gallstones,"has trouble emptying bladder and constant pain" History of Any Multi-Drug Resistant Organisms: None Reported Past Surgical History: Appendectomy, Bladder Surgery, Breast Surgery, Cholecystectomy, Joint Replacement, Orthopedic Surgery Additional Past Surgical History / Comment(s): HEMORROIDS, SKIN CA REMOVAL,Lt hip replacement,chip rt breast, cholecystectomy 03/27/2020 Past Anesthesia/Blood Transfusion Reactions: No Reported Reaction Additional Past Anesthesia/Blood Transfusion Reaction / Comment(s): no hx blood transfusion Past Psychological History: No Psychological Hx Reported Smoking Status: Never smoker Past Alcohol Use History: None Reported Past Drug Use History: None Reported - Past Family History Mother Family Medical History: Rheumatoid Arthritis (RA) Father Family Medical History: Cancer Additional Family Medical History / Comment(s): sarcoma abdominal area Sister(s) Family Medical History: Cancer Additional Family Medical History / Comment(s): #1 sister ovarian and bladder CA,#2 sister breast CA Brother(s) Family Medical History: CVA/TIA Course Vital Signs 05/02/20 05/02/20 05/02/20 19:32 19:43 20:30 Temperature 97.9 F Pulse Rate 90 89 86 Respiratory 18 16 87 H Rate Blood Pressure 210/101 169/103 190/105 O2 Sat by Pulse 99 98 94 L Oximetry 05/02/20 20:45 Temperature Pulse Rate 84 Respiratory 18 Rate Blood Pressure 198/95 O2 Sat by Pulse 95 Oximetry Disposition Clinical Impression: Cerebrovascular accident (CVA), Expressive aphasia, Hypertensive crisis, Hyperglycemia, Renal insufficiency, Cephalgia Disposition: ADMITTED IP TO THIS HOSP Condition: Fair Is patient prescribed a controlled substance at d/c from ED?: No Referrals: Darinel Camejo MD [Primary Care Provider] - 1-2 days Time of Disposition: 21:31 Decision Date: 05/02/20 Decision Time: 21:31
[2020-05-02] MEDS: SODIUM CHLORIDE 0.9% 1,000 ML IV SCH (22:24)
[2020-05-02] MEDS: ATORVASTATIN 80 MG TAB PO SCH (22:32)
[2020-05-02] MEDS: SUCRALFATE 1 GM TAB PO SCH (22:32)
[2020-05-02] MEDS: MECLIZINE 12.5 MG TAB PO PRN (22:51)
[2020-05-03 06:29] LABS: Cholesterol 172 mg/dL (<200); HDL Cholesterol 37 mg/dL (40-60); LDL Cholesterol,Calculated 102 mg/dL (0-99); Triglycerides 166 mg/dL (<150)
[2020-05-03] MEDS ORDERED: PANTOPRAZOLE 40 MG TABLET PO SCH (07:30)
[2020-05-03] MEDS ORDERED: FAMOTIDINE 20 MG/2 ML VIAL IV SCH (09:00)
[2020-05-03] MEDS ORDERED: lisinopriL 20 MG TAB PO SCH (09:00)
[2020-05-03] MEDS ORDERED: CLOPIDOGREL 75 MG TAB PO STA (09:41)
[2020-05-03] MEDS: TICAGRELOR 90 MG TAB PO STA ×2 (10:14→10:18)
--- NOTE | 2020-05-03 10:25 | CT ---
EXAMINATION TYPE: CT brain wo con DATE OF EXAM: 05/03/2020 HISTORY: Left leg numbness, nausea and increased headache CT DLP: 1188.4 mGycm. Automated Exposure Control for Dose Reduction was Utilized. TECHNIQUE: CT scan of the head is performed without contrast. COMPARISON: CT brain from yesterday. FINDINGS: There is no acute intracranial hemorrhage or midline shift identified. There is mild diff use ventricular and sulcal prominence consistent with diffuse age-related cerebral atrophy. There is mild to moderate low-attenuation in the periventricular white matter consistent with chronic small v essel ischemic change. The globes are intact and the visualized sinuses are clear. IMPRESSION: No acute intracranial hemorrhage or midline shift. There is mild diffuse age-related ce rebral atrophy and mild to moderate chronic small vessel ischemic change redemonstrated. No signific ant change from CT one day earlier.
[2020-05-03] MEDS ORDERED: ASPIRIN 325 MG TAB PO STA (10:58)
[2020-05-03] MEDS: ONDANSETRON 4 MG/2 ML VIAL IVP PRN (11:06)
[2020-05-03] MEDS: METOPROLOL SUCCINATE (ER) 25 MG TAB.ER.24H PO SCH (11:30)
[2020-05-03] MEDS: SUCRALFATE 1 GM TAB PO SCH ×2 (11:30→18:06)
[2020-05-03] MEDS ORDERED: LORazepam 2 MG/ML INJ IV STA (12:38)
--- NOTE | 2020-05-03 12:39 | P.CNNES ---
History of Present Illness Consult date: 05/03/20 Requesting physician: Earle Richardson Reason for Consult: Expressive aphasia History of Present Illness: Patient is a 69-year-old female, who developed acute onset of expressive fluent aphasia yesterday at 6 PM. Patient had no other deficits. She knew what was going on, but was not able to express herself, and wrong words were coming out. Patient arrived to the ER at 7:26 PM. Her vital signs on arrival was blood pressure 210/101, pulse rate 90, temperature 97.6. Stroke code was activated. Her NIH stroke scale was 4, mainly related to expressive aphasia. Computed tomography scan of the head showed no acute process. CTA of head and neck showed no acute abnormality. Moderate stenosis of bilateral proximal ICA. Incidental note of large 6.1 cm thyroid nodule. EKG shows normal sinus rhythm with left atrial enlargement. Chest x-ray showed cardiomegaly. Blood tests shows normal CBC, PT/PTT, normal electrolytes, BUN 24, creatinine 1.32, hepatic panel is normal. Total cholesterol 172, LDL 102, HDL 37, triglycerides 166. Alcantara virus PCR negative. Patient's boyfriend states that her symptoms resolved completely by 9:30 PM. Overnight patient remained stable with no deficits. Patient's nurse checked on her at 9 AM and she was fine. At 9:11 AM when she came in, patient was again having expressive aphasia. The nurse informed me, I came in to see the patient immediately. Patient had expressive aphasia. Her NIH stroke scale was 4 based upon expressive aphasia, giving one answer for naming incorrectly. No other deficits. Repeat computed tomography scan of the head was done, which again c unruly back negative with no acute process, no MCA density, no hemorrhage. I spoke to stroke neurologist Dr. Moreau, who knew her from initial encounter yesterday, regarding possibility of TPA, who felt patient was having recurrent TIAs and recommended patient to be given Brilinta 90 mg stat, no IV TPA. This was given. Patient subsequently started complaining of headache on the left side, which she rated 4-6/10, nausea and dizziness. Patient continued to have fluctuating speech deficits, sometimes would speak clearly, and able to name objects, but other times would have word salad, and fluent aphasia. Patient takes meclizine, metoprolol 25 mg daily, lisinopril 40 mg, omeprazole, Lipitor 10 mg and sucralfate. Patient does not take aspirin on a daily basis, only when she has some pain. Patient states for the last 3-4 days she was taking baby aspirin 2 a day, as she was having some headaches. Patient's has brought the record of her blood pressure readings 180/74 on 04/02/2020, and daily for next 5 days for 195/86 on 04/03/2020, 195/89, 183/98, 179/124, 183/96 on 04/07/2020. Patient denies any history of diabetes. Never smoked. Patient has hypertension. Patient has undergone laparoscopic cholecystectomy on 03/27/2020. Review of Systems Headache, dizziness. Denies any visual symptoms, denies any focal weakness. Denies chest pain shortness of breath wheezing or cough. Patient has been having symptoms of numbness off and on for last few months. Complaining of some numbness of the hands, fingertips which probably is not new. Past Medical History Past Medical History: CVA/TIA, GERD/Reflux, Hyperlipidemia, Hypertension, Osteoarthritis (OA), Sleep Apnea/CPAP/BIPAP Additional Past Medical History / Comment(s): "Prediabetic",Gallstones,"has trouble emptying bladder and constant pain" History of Any Multi-Drug Resistant Organisms: None Reported Past Surgical History: Appendectomy, Bladder Surgery, Breast Surgery, Cholecystectomy, Joint Replacement, Orthopedic Surgery Additional Past Surgical History / Comment(s): HEMORROIDS, SKIN CA REMOVAL,Lt hip replacement,chip rt breast, cholecystectomy 03/27/2020 Past Anesthesia/Blood Transfusion Reactions: No Reported Reaction Additional Past Anesthesia/Blood Transfusion Reaction / Comment(s): no hx blood transfusion Past Psychological History: No Psychological Hx Reported Smoking Status: Never smoker Past Alcohol Use History: None Reported Past Drug Use History: None Reported - Past Family History Mother Family Medical History: Rheumatoid Arthritis (RA) Father Family Medical History: Cancer Additional Family Medical History / Comment(s): sarcoma abdominal area Sister(s) Family Medical History: Cancer Additional Family Medical History / Comment(s): #1 sister ovarian and bladder CA,#2 sister breast CA Brother(s) Family Medical History: CVA/TIA Medications and Allergies Home Medications Medication Instructions Recorded Confirmed Type Meclizine [Antivert] 12.5 mg PO TID PRN 05/18/15 05/02/20 History Atorvastatin Calcium [Lipitor] 10 mg PO HS 11/03/18 05/02/20 History Metoprolol Succinate [Toprol XL] 25 mg PO DAILY 11/03/18 05/02/20 History Omeprazole 40 mg PO DAILY 03/27/20 05/02/20 History Sucralfate [Carafate] 1 gm PO TID 03/27/20 05/02/20 History lisinopriL [Prinivil] 40 mg PO DAILY 05/02/20 05/02/20 History Allergies Allergy/AdvReac Type Severity Reaction Status Date / Time amlodipine Allergy LEG Verified 05/02/20 20:52 SWELLING, HAND NUMBNESS codeine Allergy Itching Verified 05/02/20 19:35 cyclobenzaprine Allergy facial Verified 05/02/20 19:35 swelling,itching latex Allergy Itching Verified 05/02/20 19:35 azithromycin [From Zithromax] AdvReac Abdominal Verified 05/02/20 19:35 Pain methylprednisolone AdvReac Abdominal Verified 05/02/20 19:35 Pain sulfamethoxazole AdvReac Abdominal Verified 05/02/20 19:35 [From Bactrim] Pain tramadol AdvReac Abdominal Verified 05/02/20 19:35 Pain trimethoprim [From Bactrim] AdvReac Abdominal Verified 05/02/20 19:35 Pain Physical Examination - Vital Signs Vital Signs: Vital Signs Temp Pulse Pulse Resp BP BP Pulse Ox 05/03/20 08:00 97.1 F L 63 18 154/84 98 05/03/20 03:51 98.6 F 75 20 147/72 96 05/03/20 03:45 98.6 F 75 20 147/72 96 05/02/20 23:34 62 16 159/93 98 05/02/20 22:45 77 15 163/94 95 05/02/20 22:30 78 157/106 95 05/02/20 22:15 73 18 177/93 95 05/02/20 22:00 76 18 157/87 95 05/02/20 21:45 76 16 173/101 94 L 05/02/20 21:30 80 16 166/115 98 05/02/20 21:15 76 18 207/106 95 05/02/20 21:00 78 16 207/106 95 05/02/20 20:45 84 18 198/95 95 05/02/20 20:30 86 87 H 190/105 94 L 05/02/20 19:43 89 16 169/103 98 05/02/20 19:32 97.9 F 90 18 210/101 99 Intake and Output 05/02/20 05/03/20 05/03/20 22:59 06:59 14:59 Other: Voiding Method Toilet # Voids 1 Weight 102.512 kg 102.512 kg On examination patient is an elderly female, who appears somewhat anxious, slightly shaky, but in no distress. She sometimes becomes emotional. Speech is fluent aphasic. Patient often speaks word salad. Sometimes can speak a sentence clearly. She has intermittent problems with naming objects. Sometimes could name, other times speaks completely different nonsensical word. Sometimes she can repeat, sometimes not, very fluctuating symptoms. Her comprehension is perfect. Can follow all directions. On cranial nerve examination pupils are round and reacting to light, visual curtis are full on confrontation, with no neglect on double simultaneous stimulation. Extraocular muscles are intact. Face is symmetric, tongue protrudes to the midline. Palat al elevation and sensation normal, hearing and shoulder shrug normal, facial sensation normal. On muscle strength testing there is no pronator drift and the strength is normal in arms and legs distally and proximally. Reflexes are 1+ and plantars are downgoing. Sensory to touch is equal with no neglect on double simultaneous stimulation. No ataxia for [id number] or [id number] testing, tone and bulk of muscles normal. Gait deferred. On general examination there is no carotid bruit, S1 and S2 audible, abdomen soft nontender, chest is clear. Peripheral pulses present. Results - Laboratory Findings CBC and BMP: 05/02/20 19:53 05/02/20 19:53 Abnormal Lab Findings: Abnormal Labs 05/02/20 05/02/20 05/02/20 19:45 19:53 19:53 APTT 21.4 L BUN 24 H Creatinine 1.32 H Glucose 172 H POC Glucose (mg/dL) 165 H Triglycerides LDL Cholesterol, Calc HDL Cholesterol 05/03/20 05:29 APTT BUN Creatinine Glucose POC Glucose (mg/dL) Triglycerides 166 H LDL Cholesterol, Calc 102 H HDL Cholesterol 37 L Assessment and Plan Assessment: * Recurrent stroke/TIA, manifesting with expressive fluent aphasia. No other deficits. Her NIH stroke scale is 4. * Hypertension, not well controlled * Obesity * Hyperlipidemia Plan: * Patient has received Brilinta 90 mg, and aspirin 325 mg. * Her symptoms are still fluctuating. At this point, 3 hours post stroke/TIA onset, risks of TPA are much higher than potential benefits. Especially with her headache, dizziness, nausea, high risk of hemorrhagic conversion particularly for subarachnoid hemorrhage. Therefore given potential risks, would hold off on TPA at this time. I discussed with patient's boyfriend, gave him the risks and benefits, and he agreed to hold off on TPA. * I discussed with patient, and her boyfriend, and they are in agreement with this plan. * Patient will undergo a stat MRI of the brain. * Permissive hypertension for next 24-48 hours. * 2-D echo with bubble study to rule out PFO. * Hemoglobin A1c * High-dose statins Lipitor 80 mg. Time with Patient: Greater than 30 (One hour spent in counseling, coordinating care, observing patient, besides the time spent for consultation.)
--- NOTE | 2020-05-03 12:49 | ECHOF ---
Referral Reason:Thrombus MEASUREMENTS -------- HEIGHT: 162.6 cm WEIGHT: 102.5 kg BP: 187/100 RVIDd: 2.3 cm (< 3.3) IVSd: 1.4 cm (0.6 - 1.1) LVIDd: 4.7 cm (3.9 - 5.3) LVPWd: 1.4 cm (0.6 - 1.1) IVSs: 1.7 cm LVIDs: 2.8 cm LVPWs: 1.8 cm LA Diam: 3.1 cm (2.7 - 3.8) Ao Diam: 2.9 cm (2.0 - 3.7) AV Cusp: 1.9 cm (1.5 - 2.6) MV E Shravan: 0.79 m/s MV DecT: 353 ms MV A Shravan: 1.08 m/s MV E/A Ratio: 0.73 RAP: 5.00 mmHg RVSP: 33.39 mmHg FINDINGS -------- Sinus rhythm. This was a technically difficult study with suboptimal views. The left ventricular size is normal. There is moderate concentric left ventricular hypertrophy. O verall left ventricular systolic function is normal with, an EF between 60 - 65 %. The right ventricle is normal in size. The left atrium is normal in size. The right atrium is normal in size. 5.0mg of Lumason was utilized for enhancement of images The aortic valve is trileaflet, and appears structurally normal. No aortic stenosis or regurgitation. The mitral valve is normal. Mild tricuspid regurgitation present. There is borderline pulmonary artery hypertension. The righ t ventricular systolic pressure, as measured by Doppler, is 33.39mmHg. There is no pulmonic regurgitation present. The aortic root size is normal. IVC Not well visulized. There is no pericardial effusion. CONCLUSIONS -------- 1. The left ventricular size is normal. 2. There is moderate concentric left ventricular hypertrophy. 3. Overall left ventricular systolic function is normal with, an EF between 60 - 65 %. 4. 5.0mg of Lumason was utilized for enhancement of images 5. Mild tricuspid regurgitation present. 6. There is borderline pulmonary artery hypertension. 7. The right ventricular systolic pressure, as measured by Doppler, is 33.39mmHg. 8. There is no pulmonic regurgitation present. 9. There is no pericardial effusion. ENTRY TABLE OPERATOR: Zoie Mesa RDCS
--- NOTE | 2020-05-03 14:37 | MR ---
EXAMINATION TYPE: MR brain wo con DATE OF EXAM: 05/03/2020 COMPARISON: CT brain from earlier today HISTORY: CVA, left leg numbness. TECHNIQUE: Multiplanar, multisequence imaging of the brain and brainstem is performed without IV cont rast. FINDINGS: Diffusion weighted images demonstrate no evidence of a recent infarct or other diffusion abnormality. There is mild diffuse ventricular and sulcal prominence redemonstrated. Mild to moderate areas of T2 hyperintensity throughout the deep and periventricular white matter are again seen. Midline structures demonstrate normal morphology. The craniocervical junction appears within normal limits. Normal vascular flow voids are present. The visualized sinuses are clear and the globes are i ntact. IMPRESSION: No MRI evidence for recent infarct. Mild diffuse age-related cerebral artery and mild to moderate chronic small vessel ischemic change is redemonstrated.
[2020-05-03] MEDS: SODIUM CHLORIDE 0.9% 1,000 ML IV SCH ×2 (17:00→18:31)
--- NOTE | 2020-05-03 17:49 | P.CNPUL ---
History of Present Illness Consult date: 05/03/20 Requesting physician: Nicole Solorzano Reason for consult: other Chief complaint: Expressive aphasia, acute CVA History of present illness: 69-year-old white female patient with past history of hypertension, hyperlipidemia, morbid obesity, obstructive sleep apnea without device, possible history of diabetes, previous history of TIA, and previous history of myocardial infarction who presents the emergency department 05/02/2020, and she was driven in the car by her boyfriend after patient developed acute onset of expressive aphasia at around 6:30 last night. Apparently patient called on the phone to her boyfriend and was having trouble finding the right words, she did not make sense on the phone, and the boyfriend went over to check on her and drove her to the hospital. She arrived in the ER at 7:26 PM, she was very hypertensive on arrival, blood pressure 210/101, sinus rhythm with a rate of 90, no fever, cold stroke with activity, her initial NIH stroke scale was 4 related to expressive aphasia. CT scan of the head showed no acute process, CT of the head and neck showed no acute abnormality, and moderate stenosis with bilateral proximal ICA. EKG showed normal sinus rhythm with left atrial enlargement, blood test shows normal CBC, PT/PTT, normal electrolytes, BUN of 24 creatinine of 1.32, LFTs were within normal limits, total cholesterol 172, LDL is 102, HDL 37, triglycerides 166. COVID 19 PCR was negative, chest x-ray showed cardiomegaly. While in the emergency department patient had waxing and waning symptoms of expressive aphasia with improvement of her symptoms by 9:30 last night, and overnight patient had no deficits. However this morning she started having expressive aphasia again. An NIH stroke scale was 4. Repeat CT scan of the head was done which came back negative with no acute process, no MCP density no hemorrhage. Interventional neurology at [facility] felt that patient was having recurrent TIAs, and recommended Brilinta 90 mg stat no IV TPA. The patient was started on Brilinta. Patient continues to have fluctuating speech deficits, she is currently just complaining of some numbness in her feet, but no speech deficits, brain MRI was completed this afternoon showing no evidence for recent infarct, mild diffuse age-related cerebral artery and mild to moderate chronic small vessel ischemic change redemonstrated. In view of her waxing and waning neurological symptoms will be admitted to the intensive care unit for next 24 hours for closer neurological observation, she is on room air, pulse ox of 99%, she is afebrile, currently blood pressure is 154/84, she is lethargic, but answering questions appropriately, speech deficit was noted, no unilateral weakness. Strength is equal bilaterally. Review of Systems All systems: negative Constitutional: Reports as per HPI, Denies chills, Denies fever Eyes: denies blurred vision, denies pain Ears, nose, mouth and throat: Denies headache, Denies sore throat Cardiovascular: Denies chest pain, Denies shortness of breath Respiratory: Denies cough Gastrointestinal: Denies abdominal pain, Denies diarrhea, Denies nausea, Denies vomiting Genitourinary: Denies dysuria, Denies hematuria Musculoskeletal: Denies myalgias Integumentary: Denies pruritus, Denies rash Neurological: Reports change in speech, Denies numbness, Denies weakness Psychiatric: Denies anxiety, Denies depression Endocrine: Denies fatigue, Denies weight change Past Medical History Past Medical History: CVA/TIA, GERD/Reflux, Hyperlipidemia, Hypertension, Osteoarthritis (OA), Sleep Apnea/CPAP/BIPAP Additional Past Medical History / Comment(s): "Prediabetic",Gallstones,"has trouble emptying bladder and constant pain" History of Any Multi-Drug Resistant Organisms: None Reported Past Surgical History: Appendectomy, Bladder Surgery, Breast Surgery, Cholecystectomy, Joint Replacement, Orthopedic Surgery Additional Past Surgical History / Comment(s): HEMORROIDS, SKIN CA REMOVAL,Lt hip replacement,chip rt breast, cholecystectomy 03/27/2020 Past Anesthesia/Blood Transfusion Reactions: No Reported Reaction Additional Past Anesthesia/Blood Transfusion Reaction / Comment(s): no hx blood transfusion Past Psychological History: No Psychological Hx Reported Smoking Status: Never smoker Past Alcohol Use History: None Reported Past Drug Use History: None Reported - Past Family History Mother Family Medical History: Rheumatoid Arthritis (RA) Father Family Medical History: Cancer Additional Family Medical History / Comment(s): sarcoma abdominal area Sister(s) Family Medical History: Cancer Additional Family Medical History / Comment(s): #1 sister ovarian and bladder CA,#2 sister breast CA Brother(s) Family Medical History: CVA/TIA Medications and Allergies Home Medications Medication Instructions Recorded Confirmed Type Meclizine [Antivert] 12.5 mg PO TID PRN 05/18/15 05/02/20 History Atorvastatin Calcium [Lipitor] 10 mg PO HS 11/03/18 05/02/20 History Metoprolol Succinate [Toprol XL] 25 mg PO DAILY 11/03/18 05/02/20 History Omeprazole 40 mg PO DAILY 03/27/20 05/02/20 History Sucralfate [Carafate] 1 gm PO TID 03/27/20 05/02/20 History lisinopriL [Prinivil] 40 mg PO DAILY 05/02/20 05/02/20 History Allergies Allergy/AdvReac Type Severity Reaction Status Date / Time amlodipine Allergy LEG Verified 05/02/20 20:52 SWELLING, HAND NUMBNESS codeine Allergy Itching Verified 05/02/20 19:35 cyclobenzaprine Allergy facial Verified 05/02/20 19:35 swelling,itching latex Allergy Itching Verified 05/02/20 19:35 azithromycin [From Zithromax] AdvReac Abdominal Verified 05/02/20 19:35 Pain methylprednisolone AdvReac Abdominal Verified 05/02/20 19:35 Pain sulfamethoxazole AdvReac Abdominal Verified 05/02/20 19:35 [From Bactrim] Pain tramadol AdvReac Abdominal Verified 05/02/20 19:35 Pain trimethoprim [From Bactrim] AdvReac Abdominal Verified 05/02/20 19:35 Pain Physical Exam Vitals: Vital Signs Temp Pulse Pulse Resp BP BP Pulse Ox 05/03/20 08:00 97.1 F L 63 18 154/84 98 05/03/20 03:51 98.6 F 75 20 147/72 96 05/03/20 03:45 98.6 F 75 20 147/72 96 05/02/20 23:34 62 16 159/93 98 05/02/20 22:45 77 15 163/94 95 05/02/20 22:30 78 157/106 95 05/02/20 22:15 73 18 177/93 95 05/02/20 22:00 76 18 157/87 95 05/02/20 21:45 76 16 173/101 94 L 05/02/20 21:30 80 16 166/115 98 05/02/20 21:15 76 18 207/106 95 05/02/20 21:00 78 16 207/106 95 05/02/20 20:45 84 18 198/95 95 05/02/20 20:30 86 87 H 190/105 94 L 05/02/20 19:43 89 16 169/103 98 05/02/20 19:32 97.9 F 90 18 210/101 99 Intake and Output 05/03/20 05/03/20 05/03/20 06:59 14:59 22:59 Other: Voiding Method Toilet # Voids 1 Weight 102.512 kg GENERAL EXAM: Drowsy, but easily arousable, overweight 69-year-old white female, on room air, with a pulse ox of 90%, resting comfortably on a gurney in the emergency department comfortable in no apparent distress. HEAD: Normocephalic/atraumatic. EYES: Normal reaction of pupils, equal size. Conjunctiva pink, sclera white. NOSE: Clear with pink turbinates. THROAT: No erythema or exudates. NECK: No masses, no JVD, no thyroid enlargement, no adenopathy. CHEST: No chest wall deformity. Symmetrical expansion. LUNGS: Equal air entry with no crackles, wheeze, rhonchi or dullness. CVS: Regular rate and rhythm, normal S1 and S2, no gallops, no murmurs, no rubs ABDOMEN: Soft, nontender. No hepatosplenomegaly, normal bowel sounds, no guarding or rigidity. EXTREMITIES: No clubbing, no edema, no cyanosis, 2+ pulses and upper and lower extremities. MUSCULOSKELETAL: Muscle strength and tone normal. SPINE: No scoliosis or deformity SKIN: No rashes CENTRAL NERVOUS SYSTEM: Drowsy, arousable, oriented 3 No focal deficits, tone is normal in all 4 extremities. Results - Laboratory Findings CBC and BMP: 05/02/20 19:53 05/02/20 19:53 PT/INR, D-dimer PT 10.2 sec (9.0-12.0) 05/02/20 19:53 INR 0.9 (<1.2) 05/02/20 19:53 Abnormal lab findings: Abnormal Labs 05/02/20 05/02/20 05/02/20 19:45 19:53 19:53 APTT 21.4 L BUN 24 H Creatinine 1.32 H Glucose 172 H POC Glucose (mg/dL) 165 H Triglycerides LDL Cholesterol, Calc HDL Cholesterol 05/03/20 05:29 APTT BUN Creatinine Glucose POC Glucose (mg/dL) Triglycerides 166 H LDL Cholesterol, Calc 102 H HDL Cholesterol 37 L - Diagnostic Findings Additional studies: Computed tomography scan of the brain, angiography CT of the brain, chest x- ray, brain CT, echocardiogram, brain MRI results have been reviewed Assessment and Plan Plan: Assessment: #1. Recurrent CVA/TIA, the patient presented with the symptoms of expressive fluent aphasia. Patient did not receive TPA in view of improving symptoms, and was started on Brillinta #2. Hypertensive urgency #3. Morbid obesity #4. Obstructive sleep apnea without device #5. Hypertension #6. Hyperlipidemia #7. Previous history of TIA #8. history of myocardial infarction #9. Possible history of diabetes #10. Osteoarthritis Plan: Recurrent medical treatment, continue close neurological and hemodynamic monito ring in the intensive care unit where the patient will be admitted for closer monitoring for next 24 hours. Neurology is following, continue neuro checks using the NIH scale. DVT prophylaxis per neurology, chest x-ray, echocardiogram, brain CTs, MRI results have been reviewed. Continue IV fluids, maintain aspiration precautions, obtain speech evaluation. EEG is pending, DVT prophylaxis, we'll continue to monitor. I performed a history & physical examination of the patient and discussed their management with my nurse practitioner, Gretchen Lagunas. I reviewed the nurse practitioner's note and agree with the documented findings and plan of care. Lung sounds are positive for clear breath sounds. The findings and the impression was discussed with the patient. I attest to the documentation by the nurse practitioner. Time with Patient: Greater than 30
[2020-05-03 18:01] LABS: Glucose,Whole Blood 100 mg/dL (75-99)
[2020-05-03] MEDS ORDERED: NALOXONE 0.4 MG/ML 1 ML VIAL IV PRN (18:17)
[2020-05-03] MEDS: ACETAMINOPHEN TAB 325 MG TAB PO PRN (18:27)
[2020-05-03 19:56] LABS: Basophils % (A) 1 %; Calcium 8.9 mg/dL (8.4-10.2); Eosinophils # (A) 0.1 k/uL (0-0.7); Eosinophils % (A) 2 %; HCT 39.2 % (34.0-46.0); HGB 12.9 gm/dL (11.4-16.0); Lymphocytes # (A) 1.5 k/uL (1.0-4.8); Lymphocytes % (A) 21 %; MCH 29.5 pg (25.0-35.0); MCHC 32.8 g/dL (31.0-37.0); Mean Platelet Volume 9.5; Monocytes # (A) 0.6 k/uL (0-1.0); Monocytes % (A) 8 %; Neutrophils # (A) 4.9 k/uL (1.3-7.7); Neutrophils % (A) 67 %; Platelet Count 291 k/uL (150-450); Potassium 3.8 mmol/L (3.5-5.1); RBC 4.35 m/uL (3.80-5.40); WBC 7.3 k/uL (3.8-10.6)
[2020-05-03 20:00] LABS: MCV 90.1 fL (80.0-100.0)
--- NOTE | 2020-05-03 20:07 | P.HPIM ---
History of Present Illness H&P Date: 05/03/20 Chief Complaint: Changes speech History of presenting complaint: This is a pleasant [address] champagne. Around 6 PM yesterday patient developed a change in the speech. Not able to speak. She had no other neurological symptoms. She'll unable to express herself and incorrect words were coming out. Initial blood pressure in the ER was 2 10 x 1 01. Lites stroke score was 4. Computed tomography scan of the brain was negative. CT of the head and neck showed no acute abnormality. By around 9:30 PM the symptoms are completely resolved as per her boyfriend now documented. Just after 9 this morning patient again started having expressive aphasia. Patient was seen by neurologist and Dr. Tripathi who contacted the neuroradiologist and was decided because of recurrent TIAs patient be given Brillinta and no TPA. Patient also said having some headache. Her speech was fluctuating. Chronic stable medical conditions include GERD, hypertension, hyperlipidemia, prostatitis, obstructive sleep apnea gallstones. Review of systems: GEN.: Tired EYES: None HEENT: Some headache NECK: None RESPIRATORY: None CARDIOVASCULAR: None GASTROINTESTINAL: None GENITOURINARY: None MUSCULOSKELETAL: Joint pains] LYMPHATICS: None HEMATOLOGICAL: None PSYCHIATRY: None NEUROLOGICAL: As above Past medical history to include: GERD, hypertension, hyperlipidemia, osteoporosis redness, obstructive sleep apnea, gallstones Social history: No history of smoking or alcohol. Physical examination: VITAL SIGNS: 97.9, 90, 18, 110/101, 99% room air at-upon presentation GENERAL: BMI 38.8, laying in bed, not in distress. EYES: Pupils equal. Conjunctiva normal. HEENT: External appearance of nose and ears normal, oral cavity grossly normal. NECK: JVD not raised; masses not palpable. HEART: First and second heart sounds are normal; no edema. LUNGS: Respiratory rate normal; clear to auscultation. ABDOMEN: Soft, nontender, liver spleen not palpable, no masses palpable. PSYCH: Alert and oriented x3; mood and affect slightly anxiousl. MUSCULAR skeletal: Evidence of OA NEUROLOGICAL: [Having difficulty with speech/ words. No other focal findings.. LYMPHATICS: No lymph nodes palpable in the axilla and neck INVESTIGATIONS, reviewed in the clinical context: WBC 7.3 hemoglobin 12.9 platelets 291 potassium 3.8 bun 20 creatinine 1.17 LDL 102 Coronavirus [PCR]-not detected Computed tomography scan of the brain [May 03]: No acute line 2-D echocardiogram: Moderate concentric LVH. EF 60-16 5% Upon admission: Computed tomography scan of the brain no acute CT angiogram head and neck: Moderate stenosis of the bilateral proximal ICA, large 6.1 cm thyroid nodule EKG tracing personally reviewed by me-normal sinus rhythm Chest x-ray film personally reviewed by me-borderline cardiomegaly. Past Medical History Past Medical History: CVA/TIA, GERD/Reflux, Hyperlipidemia, Hypertension, Osteoarthritis (OA), Sleep Apnea/CPAP/BIPAP Additional Past Medical History / Comment(s): "Prediabetic",Gallstones,"has trouble emptying bladder and constant pain" History of Any Multi-Drug Resistant Organisms: None Reported Past Surgical History: Appendectomy, Bladder Surgery, Breast Surgery, Cholecystectomy, Joint Replacement, Orthopedic Surgery Additional Past Surgical History / Comment(s): HEMORROIDS, SKIN CA REMOVAL,Lt hip replacement,chip rt breast, cholecystectomy 03/27/2020 Past Anesthesia/Blood Transfusion Reactions: No Reported Reaction Additional Past Anesthesia/Blood Transfusion Reaction / Comment(s): no hx blood transfusion Past Psychological History: No Psychological Hx Reported Smoking Status: Never smoker Past Alcohol Use History: None Reported Past Drug Use History: None Reported - Past Family History Mother Family Medical History: Rheumatoid Arthritis (RA) Father Family Medical History: Cancer Additional Family Medical History / Comment(s): sarcoma abdominal area Sister(s) Family Medical History: Cancer Additional Family Medical History / Comment(s): #1 sister ovarian and bladder CA,#2 sister breast CA Brother(s) Family Medical History: CVA/TIA Medications and Allergies Home Medications Medication Instructions Recorded Confirmed Type Meclizine [Antivert] 12.5 mg PO TID PRN 05/18/15 05/02/20 History Atorvastatin Calcium [Lipitor] 10 mg PO HS 11/03/18 05/02/20 History Metoprolol Succinate [Toprol XL] 25 mg PO DAILY 11/03/18 05/02/20 History Omeprazole 40 mg PO DAILY 03/27/20 05/02/20 History Sucralfate [Carafate] 1 gm PO TID 03/27/20 05/02/20 History lisinopriL [Prinivil] 40 mg PO DAILY 05/02/20 05/02/20 History Allergies Allergy/AdvReac Type Severity Reaction Status Date / Time amlodipine Allergy LEG Verified 05/02/20 20:52 SWELLING, HAND NUMBNESS codeine Allergy Itching Verified 05/02/20 19:35 cyclobenzaprine Allergy facial Verified 05/02/20 19:35 swelling,itching latex Allergy Itching Verified 05/02/20 19:35 azithromycin [From Zithromax] AdvReac Abdominal Verified 05/02/20 19:35 Pain methylprednisolone AdvReac Abdominal Verified 05/02/20 19:35 Pain sulfamethoxazole AdvReac Abdominal Verified 05/02/20 19:35 [From Bactrim] Pain tramadol AdvReac Abdominal Verified 05/02/20 19:35 Pain trimethoprim [From Bactrim] AdvReac Abdominal Verified 05/02/20 19:35 Pain Physical Exam Vitals: Vital Signs Temp Pulse Pulse Resp BP BP Pulse Ox 05/03/20 03:51 98.6 F 75 20 147/72 96 05/03/20 03:45 98.6 F 75 20 147/72 96 05/02/20 23:34 62 16 159/93 98 05/02/20 22:45 77 15 163/94 95 05/02/20 22:30 78 157/106 95 05/02/20 22:15 73 18 177/93 95 05/02/20 22:00 76 18 157/87 95 05/02/20 21:45 76 16 173/101 94 L 05/02/20 21:30 80 16 166/115 98 05/02/20 21:15 76 18 207/106 95 05/02/20 21:00 78 16 207/106 95 05/02/20 20:45 84 18 198/95 95 05/02/20 20:30 86 87 H 190/105 94 L 05/02/20 19:43 89 16 169/103 98 05/02/20 19:32 97.9 F 90 18 210/101 99 Intake and Output 05/02/20 05/03/20 05/03/20 22:59 06:59 14:59 Other: Voiding Method Toilet # Voids 1 Weight 102.512 kg 102.512 kg Results CBC & Chem 7: 05/02/20 19:53 05/03/20 05:29 Labs: Abnormal Lab Results - Last 24 Hours (Table) 05/02/20 05/02/20 05/02/20 Range/Units 19:45 19:53 19:53 APTT 21.4 L (22.0-30.0) sec BUN 24 H (7-17) mg/dL Creatinine 1.32 H (0.52-1.04) mg/dL Glucose 172 H (74-99) mg/dL POC Glucose (mg/dL) 165 H (75-99) mg/dL Triglycerides (<150) mg/dL LDL Cholesterol, Calc (0-99) mg/dL HDL Cholesterol (40-60) mg/dL 05/03/20 Range/Units 05:29 APTT (22.0-30.0) sec BUN (7-17) mg/dL Creatinine (0.52-1.04) mg/dL Glucose (74-99) mg/dL POC Glucose (mg/dL) (75-99) mg/dL Triglycerides 166 H (<150) mg/dL LDL Cholesterol, Calc 102 H (0-99) mg/dL HDL Cholesterol 37 L (40-60) mg/dL Thrombosis Risk Factor Assmnt - Choose All That Apply Each Factor Represents 1 point: Obesity (BMI >25) Each Risk Factor Represents 2 Points: Age 61-74 years Thrombosis Risk Factor Assessment Total Risk Factor Score: 3 Thrombosis Risk Factor Assessment Level: Moderate Risk
[2020-05-03] MEDS ORDERED: FAMOTIDINE 20 MG TAB PO SCH (21:00)
[2020-05-03] MEDS ORDERED: ASPIRIN 325 MG TAB PO SCH (21:35)
[2020-05-03] MEDS: PANTOPRAZOLE 40 MG TABLET PO SCH (21:43)
[2020-05-03] MEDS: ATORVASTATIN 80 MG TAB PO SCH (21:43)
[2020-05-04] MEDS: ACETAMINOPHEN TAB 325 MG TAB PO PRN ×3 (00:20→18:59)
[2020-05-04] MEDS: TICAGRELOR 90 MG TAB PO SCH ×3 (01:03→18:01)
[2020-05-04 04:23] LABS: Basophils % (A) 1 %; Eosinophils # (A) 0.1 k/uL (0-0.7); Eosinophils % (A) 1 %; HCT 36.8 % (34.0-46.0); HGB 12.4 gm/dL (11.4-16.0); Lymphocytes # (A) 2.1 k/uL (1.0-4.8); Lymphocytes % (A) 34 %; MCH 28.9 pg (25.0-35.0); MCHC 33.7 g/dL (31.0-37.0); MCV 85.9 fL (80.0-100.0); Mean Platelet Volume 7.1; Monocytes # (A) 0.5 k/uL (0-1.0); Monocytes % (A) 8 %; Neutrophils # (A) 3.3 k/uL (1.3-7.7); Neutrophils % (A) 54 %; Platelet Count 250 k/uL (150-450); RBC 4.29 m/uL (3.80-5.40); RDW 12.6 % (11.5-15.5); WBC 6.2 k/uL (3.8-10.6)
--- NOTE | 2020-05-04 07:41 | P.PN ---
Subjective Progress Note Date: 05/04/20 69-year-old white female patient with past history of hypertension, hyperlipide saulo, morbid obesity, obstructive sleep apnea without device, possible history of diabetes, previous history of TIA, and previous history of myocardial infarction who presents the emergency department 05/02/2020, and she was driven in the car by her boyfriend after patient developed acute onset of expressive aphasia at around 6:30 last night. Apparently patient called on the phone to her boyfriend and was having trouble finding the right words, she did not make sense on the phone, and the boyfriend went over to check on her and drove her to the hospital. She arrived in the ER at 7:26 PM, she was very hypertensive on arrival, blood pressure 210/101, sinus rhythm with a rate of 90, no fever, cold stroke with activity, her initial NIH stroke scale was 4 related to expressive aphasia. CT scan of the head showed no acute process, CT of the head and neck showed no acute abnormality, and moderate stenosis with bilateral proximal ICA. EKG showed normal sinus rhythm with left atrial enlargement, blood test shows normal CBC, PT/PTT, normal electrolytes, BUN of 24 creatinine of 1.32, LFTs were within normal limits, total cholesterol 172, LDL is 102, HDL 37, triglycerides 166. COVID 19 PCR was negative, chest x-ray showed cardiomegaly. While in the emergency department patient had waxing and waning symptoms of expressive aphasia with improvement of her symptoms by 9:30 last night, and overnight patient had no deficits. However this morning she started having expressive aphasia again. An NIH stroke scale was 4. Repeat CT scan of the head was done which came back negative with no acute process, no MCP density no hemorrhage. Interventional neurology at [facility] felt that patient was having recurrent TIAs, and recommended Brilinta 90 mg stat no IV TPA. The pa caesar was started on Brilinta. Patient continues to have fluctuating speech deficits, she is currently just complaining of some numbness in her feet, but no speech deficits, brain MRI was completed this afternoon showing no evidence for recent infarct, mild diffuse age-related cerebral artery and mild to moderate chronic small vessel ischemic change redemonstrated. In view of her waxing and waning neurological symptoms will be admitted to the intensive care unit for next 24 hours for closer neurological observation, she is on room air, pulse ox of 99%, she is afebrile, currently blood pressure is 154/84, she is lethargic, but answering questions appropriately, speech deficit was noted, no unilateral weakness. Strength is equal bilaterally. On today's evaluation of the 2020, the patient is awake and alert and she is following commands and answering questions appropriately. Her speech is normal although at times she is having some aphasia where she is having difficulties in monitoring the words are finding the appropriate words. This will be on and off and the patient was feeling fine in between. At the same patches having some numbness in the right upper extremity. No facial weakness. I understand that the numbness in her right upper extremity is quite chronic. The patient is currently on Brilinta. His blood pressure systolically was in the 180 range and the patient was started on a lisinopril hydrochlorothiazide. We are targeting a systolic blood pressure in the 160-180 range. Her LDL level was 102. She is having some limited amount of pain on her left side of the head and also she had extreme is 1 bouts of chest pain which is completely recovered at this point in time. Cardiac rhythm is sinus.The echocardiogram was done and the patient has a normal ejection fraction of 60% and there is no evidence of any pulmonary hypertension and no evidence of any intracardiac clots. No bleeding complications for now while on Brilinta. Nausea. No vomiting. No emesis. No seizure activity. No migraines. Objective - Vital Signs Vital signs: Vital Signs Temp 98.5 F 05/04/20 04:00 Pulse 59 L 05/04/20 06:00 Resp 11 L 05/04/20 06:00 BP 183/89 05/04/20 06:00 Pulse Ox 97 05/04/20 06:00 Intake & Output 05/03/20 05/04/20 05/04/20 18:59 06:59 18:59 Intake Total 1000 Output Total 890 Balance 110 Intake: IV 1000 Sodium Chloride 0.9% 1, 1000 000 ml @ 100 mls/hr IV . Q10H [facility] Rx#:[id number] Output: Urine 890 Other: Voiding Method Indwelling Catheter - Exam GENERAL EXAM: Drowsy, but easily arousable, overweight 69-year-old white female, on room air, with a pulse ox of 90%, resting comfortably on a gurney in the emergency department comfortable in no apparent distress. HEAD: Normocephalic/atraumatic. EYES: Normal reaction of pupils, equal size. Conjunctiva pink, sclera white. NOSE: Clear with pink turbinates. THROAT: No erythema or exudates. NECK: No masses, no JVD, no thyroid enlargement, no adenopathy. CHEST: No chest wall deformity. Symmetrical expansion. LUNGS: Equal air entry with no crackles, wheeze, rhonchi or dullness. CVS: Regular rate and rhythm, normal S1 and S2, no gallops, no murmurs, no rubs ABDOMEN: Soft, nontender. No hepatosplenomegaly, normal bowel sounds, no guarding or rigidity. EXTREMITIES: No clubbing, no edema, no cyanosis, 2+ pulses and upper and lower extremities. MUSCULOSKELETAL: Muscle strength and tone normal. SPINE: No scoliosis or deformity SKIN: No rashes CENTRAL NERVOUS SYSTEM: Drowsy, arousable, oriented 3 No focal deficits, tone is normal in all 4 extremities. - Labs CBC & Chem 7: 05/04/20 03:49 05/04/20 03:49 Labs: Abnormal Lab Results - Last 24 Hours (Table) 05/03/20 05/03/20 05/04/20 Range/Units 05:29 18:00 03:49 Sodium 136 L (137-145) mmol/L BUN 20 H 21 H (7-17) mg/dL Creatinine 1.17 H 1.20 H (0.52-1.04) mg/dL Glucose 121 H (74-99) mg/dL POC Glucose (mg/dL) 100 H (75-99) mg/dL Assessment and Plan Plan: #1. Recurrent CVA/TIA, the patient presented with the symptoms of expressive fluent aphasia. Patient did not receive TPA in view of improving symptoms, and was started on Brillinta overnight, she had some on and off aphasic symptoms. Nevertheless, no focal neurological deficit and the patient is having some chronic numbness in the right upper extremity. Her blood pressure is remaining monitor. He is on Brilinta. She is also on lisinopril hydrochlorothiazide started for blood pressure control. CTA of the brain showed some moderate internal carotid artery stenosis bilaterally. Otherwise, MRI of the brain showed chronic VERIFICATION REP atrophy. #2. Hypertensive urgency, stable, blood pressure is being monitored for now. #3. Morbid obesity #4. Obstructive sleep apnea without device #5. Hypertension #6. Hyperlipidemia #7. Previous history of TIA #8. history of myocardial infarction #9. Possible history of diabetes #10. Osteoarthritis Plan: Recurrent medical treatment, continue close neurological and hemodynamic monitoring in the intensive care unit where the patient will be admitted for closer monitoring for next 24 hours. Neurology is following, continue neuro checks using the NIH scale. DVT prophylaxis per neurology, echocardiogram was noted and the patient has no intracardiac clots. CAT scan of the brain and MRI of the brain was reviewed. Neurologist on the case. Continue antiplatelet therapy for now with Brilinta. Patient has been provided diet. No aspiration issues. She is on high-dose statins. We'll continue to follow. She may be transferred out of the intensive care unit once cleared by neurology.
[2020-05-04] MEDS: METOPROLOL SUCCINATE (ER) 25 MG TAB.ER.24H PO SCH (08:18)
[2020-05-04] MEDS: PANTOPRAZOLE 40 MG TABLET PO SCH ×2 (08:18→22:38)
[2020-05-04] MEDS: ASPIRIN 81 MG PO SCH ×2 (08:18→22:38)
[2020-05-04] MEDS: LISINOPRIL-HCTZ 20-12.5 MG 1 EACH TAB PO SCH ×2 (09:00→22:43)
[2020-05-04] MEDS ORDERED: CLOPIDOGREL 75 MG TAB PO SCH (09:00)
[2020-05-04] MEDS ORDERED: FAMOTIDINE 20 MG/2 ML VIAL IV SCH (09:00)
[2020-05-04] MEDS: MECLIZINE 12.5 MG TAB PO PRN (09:01)
--- NOTE | 2020-05-04 10:37 | EEG ---
ELECTROENCEPHALOGRAM REPORT DATE OF SERVICE: 05/04/2020 PREAMBLE: This is a 69-year-old female with recurrent TIAs/stroke. This study is performed to rule out any epileptiform activity. EEG FINDINGS: This is a 21 channel routine EEG recording in patient utilizing 10/20 international system with referential and bipolar montage. The background consists of well developed, well regulated, moderate voltage activity in 8-9 hertz alpha, better seen in the right hemispheric region. The background seems to be reactive to eye opening and closing. On the left hemispheric region, there is very frequent dysrhythmic slowing in delta and theta range, seen maximal in the left temporal and also in the left parietal region. No epileptiform activity was seen. Stage II sleep was seen with presence of vertex waves and sleep spindles. The EKG channel showed no arrhythmia. IMPRESSION: This is an abnormal EEG due to very frequent slowing in dysrhythmic delta and theta range involving the left temporal and some in the left parietal region. This is suggestive of focal cortical neuronal dysfunction may be related to underlying structural abnormality. No epileptiform activity was seen. MMODL / IJN: [id number] /
--- NOTE | 2020-05-04 13:32 | P.PN ---
Subjective Progress Note Date: 05/04/20 Patient was seen for a follow-up. Patient is doing much better. Her speech and language functions are back to baseline. Patient states that she had slight speech difficulty couple times today but otherwise is back to baseline. No new symptoms. Still has a mild headache. Patient denies any history of migraines. Never has headaches like this. Objective - Vital Signs Vital signs: Vital Signs Temp 98.2 F 05/04/20 12:00 Pulse 66 05/04/20 13:00 Resp 17 05/04/20 13:00 BP 154/82 05/04/20 13:00 Pulse Ox 96 05/04/20 13:00 Intake & Output 05/03/20 05/04/20 05/04/20 18:59 06:59 18:59 Intake Total 1000 1050 Output Total 890 600 Balance 110 450 Intake: IV 1000 500 Sodium Chloride 0.9% 1, 1000 500 000 ml @ 100 mls/hr IV . Q10H [facility] Rx#:[id number] Oral 550 Output: Urine 890 600 Other: Voiding Method Indwelling Catheter Indwelling Catheter - Exam Patient's mental status, speech and language functions are normal. Patient can name, repeat, read and write very well. Cranial nerves are normal. Visual fi elds are full with no neglect. Face is symmetric and tongue protrudes to the midline. Muscle strength is no pronator drift and the strength is normal, reflexes are symmetric and plantars downgoing. Sensory to touch is equal with no neglect. No ataxia for [id number] testing. Tone and bulk of muscles normal. - Labs CBC & Chem 7: 05/04/20 03:49 05/04/20 03:49 Labs: Abnormal Lab Results - Last 24 Hours (Table) 05/03/20 05/03/20 05/04/20 Range/Units 05:29 18:00 03:49 Sodium 136 L (137-145) mmol/L BUN 20 H 21 H (7-17) mg/dL Creatinine 1.17 H 1.20 H (0.52-1.04) mg/dL Glucose 121 H (74-99) mg/dL POC Glucose (mg/dL) 100 H (75-99) mg/dL Assessment and Plan Assessment: * Recurrent stroke/TIA, manifesting with expressive fluent aphasia. Now resolved, NIH stroke scale 0. * Hypertension, not well controlled * Obesity * Hyperlipidemia Plan: * Continue Brilinta 90 mg twice a day for 30 days, then switch to Plavix 75 mg, and aspirin 81 mg daily * MRI of the brain without contrast, negative for any acute stroke. Mild diffuse age-related cerebral atrophy and mild to moderate chronic small vessel ischemic change. * EEG was abnormal due to very frequent slowing in dysrhythmic delta and theta range involving the left temporal and some in the left parietal region. This is suggestive of focal cortical neuronal dysfunction, and may be related to underlying structural abnormality (probable TIA). No epileptiform activity was seen. * Optimize control of blood pressure. * 2-D echo revealed normal left-ventricular size, moderate concentric LVH, EF is 60-65%. Borderline pulmonary artery hypertension. * Hemoglobin A1c pending. TSH normal 0.981 * Lipid panel with cholesterol 172, LDL 102, HDL 37 and triglycerides 172. Continue high-dose statins, Lipitor 80 mg. * PT OT.
[2020-05-04 16:54] LABS: Hemoglobin A1C 6.1 % (4.0-6.0)
[2020-05-04 17:50] LABS: Folate, Serum 11.8 ng/mL
[2020-05-04] MEDS: ONDANSETRON 4 MG/2 ML VIAL IVP PRN (18:59)
[2020-05-04] MEDS ORDERED: LORazepam 2 MG/ML INJ IV STA (20:18)
[2020-05-04] MEDS: ATORVASTATIN 80 MG TAB PO SCH (22:37)
--- NOTE | 2020-05-04 22:45 | P.PN ---
Progress Note - Text Progress Note Date: 05/04/20 Chief Complaint: Changes speech History of presenting complaint: This is a pleasant [address] champagne. Around 6 PM yesterday patient developed a change in the speech. Not able to speak. She had no other neurological symptoms. She'll unable to express herself and incorrect words were coming out. Initial blood pressure in the ER was 2 10 x 1 01. Lites stroke score was 4. Computed tomography scan of the brain was negative. CT of the head and neck showed no acute abnormality. By around 9:30 PM the symptoms are completely resolved as per her boyfriend now documented. Just after 9 this morning patient again started having expressive aphasia. Patient was seen by neurologist and Dr. Tripathi who contacted the neuroradiologist and was decided because of recurrent TIAs patient be given Brillinta and no TPA. Patient also said having some headache. Her speech was fluctuating. Chronic stable medical conditions include GERD, hypertension, hyperlipidemia, prostatitis, obstructive sleep apnea gallstones. Admitted with recurrent TIA. Computed tomography scan of the brain, carotid Doppler, MRI unremarkable. Patient started on aspirin and Brillinta Today: ICU:. Doing well. Oral intake fair. No neuro deficits. Review of systems: Was done for constitutional, cardiovascular, GI, pulmonary. relevant finding as above Active Medications Acetaminophen (Acetaminophen Tab 325 Mg Tab) 650 mg PO Q6H PRN PRN Reason: Fever and/ or Pain Last Admin: 05/04/20 18:59 Dose: 650 mg Documented by: Aspirin (Aspirin 81 Mg) 81 mg PO BID [facility] Last Admin: 05/04/20 08:18 Dose: 81 mg Documented by: Atorvastatin Calcium (Atorvastatin 80 Mg Tab) 80 mg PO HS [facility] Last Admin: 05/03/20 21:43 Dose: 80 mg Documented by: Lisinopril/HCTZ (Lisinopril-Hctz 20-12.5 Mg 1 Each Tab) 1 each PO BID [facility] Last Admin: 05/04/20 09:00 Dose: 1 each Documented by: Meclizine HCl (Meclizine 12.5 Mg Tab) 12.5 mg PO TID PRN PRN Reason: Vertigo Last Admin: 05/04/20 09:01 Dose: 12.5 mg Documented by: Metoprolol Succinate (Metoprolol Succinate (Er) 25 Mg Tab.Er.24h) 25 mg PO DAILY [facility] Last Admin: 05/04/20 08:18 Dose: 25 mg Documented by: Naloxone HCl (Naloxone 0.4 Mg/Ml 1 Ml Vial) 0.2 mg IV Q2M PRN PRN Reason: Opioid Reversal Ondansetron HCl (Ondansetron 4 Mg/2 Ml Vial) 4 mg IVP Q6HR PRN PRN Reason: Nausea And Vomiting Last Admin: 05/04/20 18:59 Dose: 4 mg Documented by: Pantoprazole Sodium (Pantoprazole 40 Mg Tablet) 40 mg PO BID [facility] Last Admin: 05/04/20 08:18 Dose: 40 mg Documented by: Ticagrelor (Ticagrelor 90 Mg Tab) 90 mg PO BID@0600,1800 [facility] Last Admin: 05/04/20 18:01 Dose: Not Given Documented by: Past medical history to include: GERD, hypertension, hyperlipidemia, osteoporosis redness, obstructive sleep apnea, gallstones Social history: No history of smoking or alcohol. Physical examination: VITAL SIGNS: 98.2, 75, 19, 146.77, 95% on room air GENERAL: BMI 38.8, laying in bed, comfortable EYES: Pupils equal. Conjunctiva normal. NECK: JVD not raised; masses not palpable. HEART: First and second heart sounds are normal; no edema. LUNGS: Respiratory rate normal; clear to auscultation. ABDOMEN: Soft, nontender, liver spleen not palpable, no masses palpable. PSYCH: Alert and oriented x3; mood and affect slightly anxiousl. MUSCULAR skeletal: Evidence of OA NEUROLOGICAL: Speech normal. No neuro deficits.. INVESTIGATIONS, reviewed in the clinical context: EEG: Suggestion of focal cortical neuronal dysfunction in the left parietal and left temporal area. No epileptiform activity MRI brain: No evidence of recent infarct. Some age-related changes May 04: WBC 6.2 hemoglobin 12.4 potassium 4 bun 21 creatinine 1.20 WBC 7.3 hemoglobin 12.9 platelets 291 potassium 3.8 bun 20 creatinine 1.17 LDL 102 Coronavirus [PCR]-not detected Computed tomography scan of the brain [May 03]: No acute line 2-D echocardiogram: Moderate concentric LVH. EF 60-16 5% Upon admission: Computed tomography scan of the brain no acute CT angiogram head and neck: Moderate stenosis of the bilateral proximal ICA, large 6.1 cm thyroid nodule EKG tracing personally reviewed by me-normal sinus rhythm Chest x-ray film personally reviewed by me-borderline cardiomegaly. Assessment and plan: -Recurrent TIA. Computed tomography scan 2-negative. On Brillinta and aspirin. Neurology consulted. MRI negative. All deficits resolved -GERD, continue with PPI. DC Carafate as it'll interfere with absorption of other medications -Hyperlipidemia on Lipitor -Essential hypertension with urgency on presentation, on antihypertensive, changed to lisinopril hydrochlorothiazide 20/12.5 twice daily. Change Toprol XL 25 to Lopressor 25 twice a day. As blood pressures running on the higher side -Primary osteoarthritis, use pain medications when necessary -Obstructive sleep apnea -Obesity BMI 38.8. Weight loss loss measures and follow-up with PCP outpatient
[2020-05-05] MEDS: METOPROLOL TARTRATE 25 MG TAB PO SCH ×3 (03:53→19:50)
[2020-05-05 05:28] LABS: Basophils % (A) 0 %; Eosinophils # (A) 0.1 k/uL (0-0.7); Eosinophils % (A) 2 %; HCT 38.4 % (34.0-46.0); HGB 12.3 gm/dL (11.4-16.0); Lymphocytes % (A) 32 %; MCH 27.6 pg (25.0-35.0); MCHC 32.1 g/dL (31.0-37.0); Mean Platelet Volume 7.2; Monocytes # (A) 0.6 k/uL (0-1.0); Monocytes % (A) 10 %; Neutrophils # (A) 3.5 k/uL (1.3-7.7); Neutrophils % (A) 54 %; Platelet Count 291 k/uL (150-450); RBC 4.46 m/uL (3.80-5.40); WBC 6.4 k/uL (3.8-10.6)
[2020-05-05 05:39] LABS: Calcium 9.2 mg/dL (8.4-10.2); Potassium 3.9 mmol/L (3.5-5.1)
[2020-05-05] MEDS: TICAGRELOR 90 MG TAB PO SCH ×2 (06:14→19:51)
--- NOTE | 2020-05-05 07:51 | P.PN ---
Subjective Progress Note Date: 05/05/20 Principal diagnosis: CVA/TIA 69-year-old white female patient with past history of hypertension, hyperlipidemia, morbid obesity, obstructive sleep apnea without device, possible history of diabetes, previous history of TIA, and previous history of myocardial infarction who presents the emergency department 05/02/2020, and she was driven in the car by her boyfriend after patient developed acute onset of expressive aphasia at around 6:30 last night. Apparently patient called on the phone to her boyfriend and was having trouble finding the right words, she did not make sense on the phone, and the boyfriend went over to check on her and drove her to the hospital. She arrived in the ER at 7:26 PM, she was very hypertensive on arrival, blood pressure 210/101, sinus rhythm with a rate of 90, no fever, cold stroke with activity, her initial NIH stroke scale was 4 related to expressive aphasia. CT scan of the head showed no acute process, CT of the head and neck showed no acute abnormality, and moderate stenosis with bilateral proximal ICA. EKG showed normal sinus rhythm with left atrial enlargement, blood test shows normal CBC, PT/PTT, normal electrolytes, BUN of 24 creatinine of 1.32, LFTs were within normal limits, total cholesterol 172, LDL is 102, HDL 37, triglycerides 166. COVID 19 PCR was negative, chest x-ray showed cardiomegaly. While in the emergency department patient had waxing and waning symptoms of expressive aphasia with improvement of her symptoms by 9:30 last night, and overnight patient had no deficits. However this morning she started having expressive aphasia again. An NIH stroke scale was 4. Repeat CT scan of the head was done which came back negative with no acute process, no MCP density no hemorrhage. Interventional neurology at [facility] felt that patient was having recurrent TIAs, and recommended Brilinta 90 mg stat no IV TPA. The patient was started on Brilinta. Patient continues to have fluctuating speech deficits, she is currently just complaining of some numbness in her feet, but no speech deficits, brain MRI was completed this afternoon showing no evidence for recent infarct, mild diffuse age-related cerebral artery and mild to moderate chronic small vessel ischemic change redemonstrated. In view of her waxing and waning neurological symptoms will be admitted to the intensive care unit for next 24 hours for closer neurological observation, she is on room air, pulse ox of 99%, she is afebrile, currently blood pressure is 154/84, she is lethargic, but answering questions appropriately, speech deficit was noted, no unilateral weakness. Strength is equal bilaterally. On today's evaluation of the 2020, the patient is awake and alert and she is following commands and answering questions appropriately. Her speech is normal although at times she is having some aphasia where she is having difficulties in monitoring the words are finding the appropriate words. This will be on and off and the patient was feeling fine in between. At the same patches having some numbness in the right upper extremity. No facial weakness. I understand that the numbness in her right upper extremity is quite chronic. The patient is currently on Brilinta. His blood pressure systolically was in the 180 range and the patient was started on a lisinopril hydrochlorothiazide. We are targeting a systolic blood pressure in the 160-180 range. Her LDL level was 102. She is having some limited amount of pain on her left side of the head and also she had extreme is 1 bouts of chest pain which is completely recovered at this point in time. Cardiac rhythm is sinus.The echocardiogram was done and the patient has a normal ejection fraction of 60% and there is no evidence of any pulmonary hypertension and no evidence of any intracardiac clots. No bleeding complications for now while on Brilinta. Nausea. No vomiting. No emesis. No seizure activity. No migraines. The patient is seen today 05/05/2020 and follow-up in the intensive care unit. She is a [facility] overflow patient. She is currently sitting up in a chair at the bedside. Awake and alert in no acute distress. Her speech is clear today. No neurologic deficits. She states she feels back to her normal. No facial we akness. No droop. Extremities are equal and strong. He did have complaints of a headache last evening but no headache this morning. White count 6.4. Hemoglobin 12.3. Sodium 136. Potassium 3.9. Creatinine 1.30. She remains on statins, aspirin, Brilinta. Antihypertensives. MRI of the brain without contrast was negative for any acute stroke. EEG was suggestive of focal cortical neuronal dysfunction may be related to underlying structural abnormality, probable TIA. No epileptiform activity seen. MRA/MRV of the head without contrast has been ordered. Objective - Vital Signs Vital signs: Vital Signs Temp 98.5 F 05/05/20 04:00 Pulse 52 L 05/05/20 07:00 Resp 18 05/05/20 07:00 BP 121/85 05/05/20 07:00 Pulse Ox 98 05/05/20 07:00 Intake & Output 05/04/20 05/05/20 05/05/20 18:59 06:59 18:59 Intake Total 1150 Output Total 900 350 Balance 250 -350 Weight 104 kg Intake: IV 500 Sodium Chloride 0.9% 1, 500 000 ml @ 100 mls/hr IV . Q10H [facility] Rx#:[id number] Oral 650 Output: Urine 900 350 Other: Voiding Method Indwelling Catheter - Exam GENERAL EXAM: Awake, alert, oriented 3, overweight 69-year-old female patient, on room air, with a pulse ox of 98%, up in a chair at the bedside HEAD: Normocephalic/atraumatic. EYES: Normal reaction of pupils, equal size. Conjunctiva pink, sclera white. NOSE: Clear with pink turbinates. THROAT: No erythema or exudates. NECK: No masses, no JVD, no thyroid enlargement, no adenopathy. CHEST: No chest wall deformity. Symmetrical expansion. LUNGS: Equal air entry with no crackles, wheeze, rhonchi or dullness. CVS: Regular rate and rhythm, normal S1 and S2, no gallops, no murmurs, no rubs ABDOMEN: Soft, nontender. No hepatosplenomegaly, normal bowel sounds, no guarding or rigidity. EXTREMITIES: No clubbing, no edema, no cyanosis, 2+ pulses and upper and lower extremities. MUSCULOSKELETAL: Muscle strength and tone normal. SPINE: No scoliosis or deformity SKIN: No rashes CENTRAL NERVOUS SYSTEM: Alert, awake, oriented 3 No focal deficits, tone is normal in all 4 extremities. - Labs CBC & Chem 7: 05/05/20 04:22 05/05/20 04:22 Labs: Abnormal Lab Results - Last 24 Hours (Table) 05/04/20 05/05/20 Range/Units 03:49 04:22 Sodium 136 L (137-145) mmol/L BUN 22 H (7-17) mg/dL Creatinine 1.30 H (0.52-1.04) mg/dL Glucose 123 H (74-99) mg/dL Hemoglobin A1c 6.1 H (4.0-6.0) % Assessment and Plan Assessment: 1 Recurrent CVA/TIA, the patient presented with the symptoms of expressive flue nt aphasia. Patient has complete resolution of symptoms and was started on Brillinta on the aspirin, statin. CTA of the brain showed some moderate internal carotid artery stenosis bilaterally. Otherwise, MRI of the brain showed chronic [employer] atrophy. 2 Hypertensive urgency, stable, blood pressure is being monitored for now. 3 Morbid obesity 4 Obstructive sleep apnea without device 5 Hypertension 6 Hyperlipidemia 7 Previous history of TIA 8 history of myocardial infarction 9 Possible history of diabetes 10 Osteoarthritis Plan: The patient was seen and evaluated by Dr. Ballard She is stable from the pulmonary and critical care standpoint MRA/MRV of the brain without contrast is pending per neurology Home once cleared by neurology We will see as needed I, the cosigning physician, performed a history & physical examination of the patient. Lungs sounds are clear. Maintaining good O2 saturations in the 90s on room air. I discussed the assessment and plan of care with my nurse practitioner, Rachel Jameson. I attest to the above note as dictated by her.
[2020-05-05] MEDS: LISINOPRIL-HCTZ 20-12.5 MG 1 EACH TAB PO SCH ×2 (09:33→19:50)
[2020-05-05] MEDS: PANTOPRAZOLE 40 MG TABLET PO SCH ×2 (09:34→19:51)
[2020-05-05] MEDS: ASPIRIN 81 MG PO SCH ×2 (09:34→19:51)
--- NOTE | 2020-05-05 12:21 | MR ---
EXAMINATION TYPE: MR angio head wo con DATE OF EXAM: 05/05/2020 COMPARISON: CT brain from 2 days ago. HISTORY: Leg numbness left, headache, recurrent TIA TECHNIQUE: Time of flight images focusing on the [place] of [place] were performed without contrast.. 2-D and 3-D postprocessing imaging is performed on independent workstation and reviewed. FINDINGS: Codominant vertebrobasilar system. Vertebral arteries patent to basilar junction. No signif icant focal stenosis or aneurysmal change. Hypoplastic bilateral posterior communicating arteries. Patent anterior communicating artery image 105. Site eccentric aneurysm distal right internal carotid artery measuring 3.0 x 1.6 mm image 82 series 301 in the supraclinoid segment along right aspect. Re mainder anterior circulation shows no significant focal stenosis or aneurysm. 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
--- NOTE | 2020-05-05 13:01 | P.PN ---
Subjective Progress Note Date: 05/05/20 Patient apparently had another spell of garbled speech yesterday evening at 4:30 PM. She also complained of some facial numbness. I was informed by the nurse that her blood pressure was 92/79. I recommended to hold blood pressure medication if her systolic blood pressure is <130. However another nurse called back, stating that patient's blood pressure was never hypotensive, never less than 130. It appears patient received Brilinta 90 mg at 1 AM this morning and was not scheduled to receive another one until 9 PM tonight. Instructed the nurse to give Brilinta 90 mg now at 6 PM, and then change the schedule to 6 AM and 6 PM daily. Keep the patient in ICU for close observation, as patient is s till a TPA candidate if she gets any stroke. Continue neuro checks. Today I came to see the patient, she is doing fine. All symptoms again resolved. Patient states that after that episode she did have some headache, but now seems to be getting better. Objective - Vital Signs Vital signs: Vital Signs Temp 98.5 F 05/05/20 04:00 Pulse 52 L 05/05/20 07:00 Resp 18 05/05/20 07:00 BP 121/85 05/05/20 07:00 Pulse Ox 98 05/05/20 07:00 Intake & Output 05/04/20 05/05/20 05/05/20 18:59 06:59 18:59 Intake Total 1150 Output Total 900 350 Balance 250 -350 Weight 104 kg Intake: IV 500 Sodium Chloride 0.9% 1, 500 000 ml @ 100 mls/hr IV . Q10H [facility] Rx#:[id number] Oral 650 Output: Urine 900 350 Other: Voiding Method Indwelling Catheter - Exam Patient's mental status, speech and language functions are normal. Patient can name, repeat, read and write very well. She had some hesitancy with reading but still able to read without much difficulty. Cranial nerves are normal. Visual curtis are full with no neglect. Face is symmetric and tongue protrudes to the midline. Muscle strength is no pronator drift and the strength is normal, reflexes are symmetric and plantars downgoing. Sensory to touch is equal with no neglect. No ataxia for [id number] testing. Tone and bulk of muscles normal. - Labs CBC & Chem 7: 05/05/20 04:22 05/05/20 04:22 Labs: Abnormal Lab Results - Last 24 Hours (Table) 05/04/20 05/05/20 Range/Units 03:49 04:22 Sodium 136 L (137-145) mmol/L BUN 22 H (7-17) mg/dL Creatinine 1.30 H (0.52-1.04) mg/dL Glucose 123 H (74-99) mg/dL Hemoglobin A1c 6.1 H (4.0-6.0) % Assessment and Plan Assessment: * Recurrent stroke/TIA, manifesting with expressive fluent aphasia. Patient had another TIA-type spell yesterday evening. Symptoms again completely resolved, NIH stroke scale 0. * Hypertension, not well controlled * Obesity * Hyperlipidemia Plan: * Patient had another episode of TIA last night. Patient will be maintained on dual antiplatelet medications as below. MRA of the brain was ordered. It revealed tiny eccentric aneurysm distal right ICA. This is likely asymptomatic. I discussed with the radiologist, as it was not mentioned in the CTA. He feels that as it close to the bone, therefore was not visible clearly on the CTA. It is widemouthed, therefore probably not able to be quite. I would suggest patient follow up with neuro-intervention as an outpatient for their opinion. * Continue Brilinta 90 mg twice a day for 30 days, then switch to Plavix 75 mg, and aspirin 81 mg daily * MRI of the brain without contrast, negative for any acute stroke. Mild diffuse age-related cerebral atrophy and mild to moderate chronic small vessel ischemic change. * EEG was abnormal due to very frequent slowing in dysrhythmic delta and theta range involving the left temporal and some in the left parietal region. This is suggestive of focal cortical neuronal dysfunction, and may be related to underlying structural abnormality (probable TIA). No epileptiform activity was seen. * Optimize control of blood pressure. * 2-D echo revealed normal left-ventricular size, moderate concentric LVH, EF is 60-65%. Borderline pulmonary artery hypertension. * Hemoglobin A1c 6.1. TSH normal 0.981. B12 366, folic acid 11.8. * Lipid panel with cholesterol 172, LDL 102, HDL 37 and triglycerides 172. Continue high-dose statins, Lipitor 80 mg. * Okay to transfer to stepdown unit.
[2020-05-05] MEDS: ATORVASTATIN 80 MG TAB PO SCH (19:51)
[2020-05-06] MEDS: TICAGRELOR 90 MG TAB PO SCH (06:16)
[2020-05-06] MEDS: METOPROLOL TARTRATE 25 MG TAB PO SCH (09:07)
[2020-05-06] MEDS: LISINOPRIL-HCTZ 20-12.5 MG 1 EACH TAB PO SCH (09:08)
[2020-05-06] MEDS: PANTOPRAZOLE 40 MG TABLET PO SCH (09:08)
[2020-05-06] MEDS: ASPIRIN 81 MG PO SCH (09:08)
--- NOTE | 2020-05-06 10:28 | P.PN ---
Subjective Progress Note Date: 05/06/20 Principal diagnosis: CVA/TIA 69-year-old white female patient with past history of hypertension, hyperlipidemia, morbid obesity, obstructive sleep apnea without device, possible history of diabetes, previous history of TIA, and previous history of myocardial infarction who presents the emergency department 05/02/2020, and she was driven in the car by her boyfriend after patient developed acute onset of expressive aphasia at around 6:30 last night. Apparently patient called on the phone to her boyfriend and was having trouble finding the right words, she did not make sense on the phone, and the boyfriend went over to check on her and drove her to the hospital. She arrived in the ER at 7:26 PM, she was very hypertensive on arrival, blood pressure 210/101, sinus rhythm with a rate of 90, no fever, cold stroke with activity, her initial NIH stroke scale was 4 related to expressive aphasia. CT scan of the head showed no acute process, CT of the head and neck showed no acute abnormality, and moderate stenosis with bilateral proximal ICA. EKG showed normal sinus rhythm with left atrial enlargement, blood test shows normal CBC, PT/PTT, normal electrolytes, BUN of 24 creatinine of 1.32, LFTs were within normal limits, total cholesterol 172, LDL is 102, HDL 37, triglycerides 166. COVID 19 PCR was negative, chest x-ray showed cardiomegaly. While in the emergency department patient had waxing and waning symptoms of expressive aphasia with improvement of her symptoms by 9:30 last night, and overnight patient had no deficits. However this morning she started having expressive aphasia again. An NIH stroke scale was 4. Repeat CT scan of the head was done which came back negative with no acute process, no MCP density no hemorrhage. Interventional neurology at [facility] felt that patient was having recurrent TIAs, and recommended Brilinta 90 mg stat no IV TPA. The patient was started on Brilinta. Patient continues to have fluctuating speech deficits, she is currently just complaining of some numbness in her feet, but no speech deficits, brain MRI was completed this afternoon showing no evidence for recent infarct, mild diffuse age-related cerebral artery and mild to moderate chronic small vessel ischemic change redemonstrated. In view of her waxing and waning neurological symptoms will be admitted to the intensive care unit for next 24 hours for closer neurological observation, she is on room air, pulse ox of 99%, she is afebrile, currently blood pressure is 154/84, she is lethargic, but answering questions appropriately, speech deficit was noted, no unilateral weakness. Strength is equal bilaterally. On today's evaluation of the 2020, the patient is awake and alert and she is following commands and answering questions appropriately. Her speech is normal although at times she is having some aphasia where she is having difficulties in monitoring the words are finding the appropriate words. This will be on and off and the patient was feeling fine in between. At the same patches having some numbness in the right upper extremity. No facial weakness. I understand that the numbness in her right upper extremity is quite chronic. The patient is currently on Brilinta. His blood pressure systolically was in the 180 range and the patient was started on a lisinopril hydrochlorothiazide. We are targeting a systolic blood pressure in the 160-180 range. Her LDL level was 102. She is having some limited amount of pain on her left side of the head and also she had extreme is 1 bouts of chest pain which is completely recovered at this point in time. Cardiac rhythm is sinus.The echocardiogram was done and the patient has a normal ejection fraction of 60% and there is no evidence of any pulmonary hypertension and no evidence of any intracardiac clots. No bleeding complications for now while on Brilinta. Nausea. No vomiting. No emesis. No seizure activity. No migraines. The patient is seen today 05/05/2020 and follow-up in the intensive care unit. She is a [facility] overflow patient. She is currently sitting up in a chair at the bedside. Awake and alert in no acute distress. Her speech is clear today. No neurologic deficits. She states she feels back to her normal. No facial we akness. No droop. Extremities are equal and strong. He did have complaints of a headache last evening but no headache this morning. White count 6.4. Hemoglobin 12.3. Sodium 136. Potassium 3.9. Creatinine 1.30. She remains on statins, aspirin, Brilinta. Antihypertensives. MRI of the brain without contrast was negative for any acute stroke. EEG was suggestive of focal cortical neuronal dysfunction may be related to underlying structural abnormality, probable TIA. No epileptiform activity seen. MRA/MRV of the head without contrast has been ordered. The patient is seen today 05/06/2020. Sitting up in a chair at the bedside. Awake and alert in no acute distress. Her speech is clear today. No neurologic deficits. She states she feels back to her normal. No facial weakness. No droop. Extremities are equal and strong. Anxious to go home. MRA shows no significant findings. Objective - Vital Signs Vital signs: Vital Signs Temp 98.2 F 05/06/20 06:03 Pulse 70 05/06/20 06:03 Resp 18 05/06/20 06:03 BP 142/79 05/06/20 06:03 Pulse Ox 95 05/06/20 06:03 Intake & Output 05/05/20 05/06/20 05/06/20 18:59 06:59 18:59 Intake Total 850 Output Total 1000 Balance -150 Intake: Oral 850 Output: Urine 1000 Other: # Voids 2 - Exam GENERAL EXAM: Awake, alert, oriented 3, overweight 69-year-old female patient, on room air, up in a chair at the bedside HEAD: Normocephalic/atraumatic. EYES: Normal reaction of pupils, equal size. Conjunctiva pink, sclera white. NOSE: Clear with pink turbinates. THROAT: No erythema or exudates. NECK: No masses, no JVD, no thyroid enlargement, no adenopathy. CHEST: No chest wall deformity. Symmetrical expansion. LUNGS: Equal air entry with no crackles, wheeze, rhonchi or dullness. CVS: Regular rate and rhythm, normal S1 and S2, no gallops, no murmurs, no rubs ABDOMEN: Soft, nontender. No hepatosplenomegaly, normal bowel sounds, no guarding or rigidity. EXTREMITIES: No clubbing, no edema, no cyanosis, 2+ pulses and upper and lower extremities. MUSCULOSKELETAL: Muscle strength and tone normal. SPINE: No scoliosis or deformity SKIN: No rashes CENTRAL NERVOUS SYSTEM: Alert, awake, oriented 3 No focal deficits, tone is normal in all 4 extremities. - Labs CBC & Chem 7: 05/05/20 04:22 05/05/20 04:22 Assessment and Plan Assessment: 1 Recurrent CVA/TIA, the patient presented with the symptoms of expressive fluent aphasia. Patient has complete resolution of symptoms and was started on Brillinta on the aspirin, statin. CTA of the brain showed some moderate internal carotid artery stenosis bilaterally. Otherwise, MRI of the brain showed chronic [employer] atrophy. 2 Hypertensive urgency, stable, blood pressure is being monitored for now. 3 Morbid obesity 4 Obstructive sleep apnea without device 5 Hypertension 6 Hyperlipidemia 7 Previous history of TIA 8 history of myocardial infarction 9 Possible history of diabetes 10 Osteoarthritis Plan: The patient was seen and evaluated by Dr. Ballard Home once cleared by neurology We will see as needed I, the cosigning physician, performed a history & physical examination of the patient. Lungs sounds are clear. Maintaining good O2 saturations in the 90s on room air. I discussed the assessment and plan of care with my nurse practitioner, Rachel Jameson. I attest to the above note as dictated by her.
[2020-05-06 10:56] LABS: Basophils # (A) 0.02 X 10*3/uL (0.00-0.10); Basophils % (A) 0.2 %; Eosinophils # (A) 0.14 X 10*3/uL (0.04-0.35); Eosinophils % (A) 1.7 %; HCT 40.3 % (37.2-46.3); Lymphocytes # (A) 1.65 X 10*3/uL (0.90-5.00); Lymphocytes % (A) 20.5 %; MCH 28.2 pg (27.0-32.0); MCHC 32.3 g/dL (32.0-37.0); MCV 87.4 fL (80.0-97.0); Mean Platelet Volume 10.1 fL (9.5-12.2); Monocytes # (A) 0.78 X 10*3/uL (0.20-1.00); Monocytes % (A) 9.7 %; Neutrophils # (A) 5.44 X 10*3/uL (1.80-7.70); Neutrophils % (A) 67.7 %; Platelet Count 316 X 10*3/uL (140-440); RBC 4.61 X 10*6/uL (4.10-5.20); RDW 12.6 % (11.5-14.5); WBC 8.05 X 10*3/uL (4.50-10.00)
[2020-05-06 12:34] VITALS: BP 167/95; PULSE 60; RESP 20; TEMP 97.2
[2020-05-06 14:15] LABS: African American GFR (CKD) 40.5 (60.0-200.0); Anion Gap 12.5 mmol/L (4.00-12.00); BUN/Creat Ratio 18.67 Ratio (12.00-20.00); Calcium 9.9 mg/dL (8.7-10.3); Carbon Dioxide 26.5 mmol/L (21.6-31.8); Non-African American GFR(CKD) 34.9 (60.0-200.0); Potassium 4.1 mmol/L (3.5-5.5)
--- NOTE | 2020-05-06 14:28 | P.PN ---
Subjective Progress Note Date: 05/05/20 Principal diagnosis: CVA/TIA Interval history - Ms. Singh is a 69-year-old female with a past medical history of GERD, hypertension, lipidemia, obstructive sleep apnea came in to the hospital for change in her speech. Patient had CAT scan of the head and neck showing no acute abnormality. Her symptoms started around 6 PM and started to resolve around 9:30 PM. Neurology was consulted and Dr. Tripathi has been following the patient. On 05/05/2020- patient was seen and examined in the ICU. She has been getting every 4 neuro checks. Patient states that her speech has been normal and she is not having any difficulty pronunciation. She complains of mild headache, mostly on the left side of her head in the frontal area that is getting better now. Patient denies having any nausea or associated vomiting. She denies having any chest pain or palpitations. No cough or difficulty in breathing. No abdominal pain nausea vomiting or diarrhea. No dysuria or hematuria. On reviewing her vitals, temperature 98.5, heart rate 52, respiratory rate 18, blood pressure 121/85, saturating at 98% on room air. On reviewing her labs white count of 6.4, hemoglobin 12.3, platelets 291. Sodium 136, potassium 3.9, chloride 101, bicarbonate 29. BUN is 22 and creatinine of 1.30. Active Medications Acetaminophen (Acetaminophen Tab 325 Mg Tab) 650 mg PO Q6H PRN PRN Reason: Fever and/ or Pain Last Admin: 05/04/20 18:59 Dose: 650 mg Documented by: Aspirin (Aspirin 81 Mg) 81 mg PO BID [facility] Last Admin: 05/05/20 19:51 Dose: 81 mg Documented by: Atorvastatin Calcium (Atorvastatin 80 Mg Tab) 80 mg PO HS [facility] Last Admin: 05/05/20 19:51 Dose: 80 mg Documented by: Lisinopril/HCTZ (Lisinopril-Hctz 20-12.5 Mg 1 Each Tab) 1 each PO BID [facility] Last Admin: 05/05/20 19:50 Dose: 1 each Documented by: Meclizine HCl (Meclizine 12.5 Mg Tab) 12.5 mg PO TID PRN PRN Reason: Vertigo Last Admin: 05/04/20 09:01 Dose: 12.5 mg Documented by: Metoprolol Tartrate (Metoprolol Tartrate 25 Mg Tab) 25 mg PO BID [facility] Last Admin: 05/05/20 19:50 Dose: 25 mg Documented by: Naloxone HCl (Naloxone 0.4 Mg/Ml 1 Ml Vial) 0.2 mg IV Q2M PRN PRN Reason: Opioid Reversal Ondansetron HCl (Ondansetron 4 Mg/2 Ml Vial) 4 mg IVP Q6HR PRN PRN Reason: Nausea And Vomiting Last Admin: 05/04/20 18:59 Dose: 4 mg Documented by: Pantoprazole Sodium (Pantoprazole 40 Mg Tablet) 40 mg PO BID [facility] Last Admin: 05/05/20 19:51 Dose: Not Given Documented by: Ticagrelor (Ticagrelor 90 Mg Tab) 90 mg PO BID@0600,1800 [facility] Last Admin: 05/05/20 19:51 Dose: 90 mg Documented by: Objective - Vital Signs Vital signs: Vital Signs Temp 98.1 F 05/05/20 12:00 Pulse 60 05/05/20 12:00 Resp 16 05/05/20 12:00 BP 167/88 05/05/20 12:00 Pulse Ox 97 05/05/20 08:00 Intake & Output 05/04/20 05/05/20 05/05/20 18:59 06:59 18:59 Intake Total 1150 Output Total 900 350 Balance 250 -350 Weight 104 kg Intake: IV 500 Sodium Chloride 0.9% 1, 500 000 ml @ 100 mls/hr IV . Q10H [facility] Rx#:[id number] Oral 650 Output: Urine 900 350 Other: Voiding Method Indwelling Catheter - Exam Physical examination: GENERAL: BMI 38.8, sitting up in a chair by the bedside. EYES: Pupils equal. Conjunctiva normal. NECK: JVD not raised; masses not palpable. HEART: First and second heart sounds are normal; no edema. LUNGS: Respiratory rate normal; clear to auscultation. ABDOMEN: Soft, nontender, liver spleen not palpable, no masses palpable. PSYCH: Alert and oriented x3; mood and affect slightly anxious. MUSCULAR skeletal: No evidence of OA NEUROLOGICAL: Speech normal. No neuro deficits.. - Labs CBC & Chem 7: 05/06/20 07:12 05/06/20 07:12 Labs: Abnormal Lab Results - Last 24 Hours (Table) 03/24/21 03/25/21 Range/Units 03:49 04:22 Sodium 136 L (137-145) mmol/L BUN 22 H (7-17) mg/dL Creatinine 1.30 H (0.52-1.04) mg/dL Glucose 123 H (74-99) mg/dL Hemoglobin A1c 6.1 H (4.0-6.0) % Assessment and Plan Assessment: ASSESSMENT Recurrent TIA/CVA Hypertensive urgency Hypertension Hyperlipidemia Multiple joint osteoarthritis GERD LAZARA Obesity with BMI of 38.8 Prediabetes PLAN: Patient had stroke workup with CT and she often and neck, CT of the head, MRA of the brain. She was started on Dilantin 90 mg twice a day. EEG was done showing very frequent slowing in the state Lorenzo and beta range involving the left temporal and some left parietal region. 2-D echo showing normal left ventricular size, moderate concentric LVH, EF 60-65%. Hemoglobin A1c 6.1. Patient to be continued on aspirin, bilateral internal, and statin. Continue GI prophylaxis. Continue with the rest of her current medication regimen. Neurology and pulmonary following. Further recommendations to follow depending on the progress of the patient.
--- NOTE | 2020-05-06 15:12 | P.DS ---
Providers Date of admission: 05/02/20 21:36 Expected date of discharge: 05/06/20 Attending physician: Heath Catherine Consults: 05/02/20 21:33 Consult Physician Routine Consulting Provider: Nicole Solorzano Consult Reason/Comments: expressive aphasia Do you want consulting provider notified?: Yes 05/03/20 17:00 Consult Physician Stat Consulting Provider: Sebastian Ballard Consult Reason/Comments: icu management Do you want consulting provider notified?: Already Contacted Primary care physician: Darinel Camejo MD Hospital Course: Final diagnosis Recurrent TIA/CVA Hypertensive urgency Hypertension Hyperlipidemia Multiple joint osteoarthritis GERD LAZARA Obesity with BMI of 38.8 Prediabetes Discharge disposition Patient is being discharged in a stable condition with guarded prognosis to home. Patient will follow-up with Dr. Camejo in the outpatient setting upon discharge. Patient also instructed to follow-up with neurology in the outpatient setting. She will continue on Brilinta 90 mg twice daily in the outpatient setting for the next 30 days and will need neurology follow-up to discuss Plavix and aspirin thereafter. Total time taken is greater than 35 minutes. Hospital course CVA/TIA Interval history - Ms. Singh is a 69-year-old female with a past medical history of GERD, hypertension, lipidemia, obstructive sleep apnea came in to the hospital for change in her speech. Patient had CAT scan of the head and neck showing no acute abnormality. Her symptoms started around 6 PM and started to resolve around 9:30 PM. Neurology was consulted and Dr. Tripathi has been following the patient. On 05/05/2020- patient was seen and examined in the ICU. She has been getting every 4 neuro checks. Patient states that her speech has been normal and she is not having any difficulty pronunciation. She complains of mild headache, mostly on the left side of her head in the frontal area that is getting better now. Patient denies having any nausea or associated vomiting. She denies having any chest pain or palpitations. No cough or difficulty in breathing. No abdominal pain nausea vomiting or diarrhea. No dysuria or hematuria. On reviewing her vitals, temperature 98.5, heart rate 52, respiratory rate 18, blood pressure 121/85, saturating at 98% on room air. On reviewing her labs white count of 6.4, hemoglobin 12.3, platelets 291. Sodium 136, potassium 3.9, chloride 101, bicarbonate 29. BUN is 22 and creatinine of 1.30. 05/06/2020 Patient is seen and evaluated this morning and follow-up with no acute overnight issues. Patient has been seen and evaluated with full workup by neurology recommending outpatient follow-up and continue on Brilinta 90 mg twice daily for the next 30 days and then transition to Plavix 75 mg daily along with 81 mg aspirin and may discontinue Brilinta. Discussed with The patient to continue with statin in the outpatient setting. Also instructed the patient to follow up with neurology and primary care provider to discuss these medication changes. Currently no reports of chest pain, shortness of breath, or palpitations. Patient is afebrile. No reports of nausea or vomiting and patient is tolerating diet. She would like to go home today. Patient will be discharged home today. On exam vital signs are stable. Cardio S1, S2 are muffled. Respiratory system shows diminished breath sounds at the bases with no wheezing or rhonchi noted. Abdomen is soft and nontender. Nervous system shows no focal deficits. Please refer to medication reconciliation sheet for a list of medications. Patient Condition at Discharge: Fair Plan - Discharge Summary Discharge Rx Participant: No New Discharge Prescriptions: New Lisinopril-Hctz 20-12.5 mg [Zestoretic 20-12.5] 1 each PO BID 30 Days #60 tab Aspirin 81 mg PO BID 30 Days #30 chew Ticagrelor [Brilinta] 90 mg PO BID@0600,1800 30 Days #60 tab Atorvastatin [Lipitor] 80 mg PO HS 30 Days #30 tab Metoprolol Tartrate [Lopressor] 25 mg PO BID 30 Days #60 tab Acetaminophen Tab [Tylenol] 650 mg PO Q6H PRN tab PRN Reason: Fever And/ Or Pain Continue Meclizine [Antivert] 12.5 mg PO TID PRN PRN Reason: Vertigo Omeprazole 40 mg PO DAILY Sucralfate [Carafate] 1 gm PO TID Discontinued Metoprolol Succinate [Toprol XL] 25 mg PO DAILY Atorvastatin Calcium [Lipitor] 10 mg PO HS lisinopriL [Prinivil] 40 mg PO DAILY Discharge Medication List Meclizine [Antivert] 12.5 mg PO TID PRN 05/18/15 [History] Omeprazole 40 mg PO DAILY 03/27/20 [History] Sucralfate [Carafate] 1 gm PO TID 03/27/20 [History] Acetaminophen Tab [Tylenol] 650 mg PO Q6H PRN tab 05/06/20 [Rx] Aspirin 81 mg PO BID 30 Days #30 chew 05/06/20 [Rx] Atorvastatin [Lipitor] 80 mg PO HS 30 Days #30 tab 05/06/20 [Rx] Lisinopril-Hctz 20-12.5 mg [Zestoretic 20-12.5] 1 each PO BID 30 Days #60 tab 05/06/20 [Rx] Metoprolol Tartrate [Lopressor] 25 mg PO BID 30 Days #60 tab 05/06/20 [Rx] Ticagrelor [Brilinta] 90 mg PO BID@0600,1800 30 Days #60 tab 05/06/20 [Rx] Follow up Appointment(s)/Referral(s): Ashish Issa MD [Medical Doctor] - 1 Week (Please call office to schedule your follow-up appointment. The office was closed at the time of your discharge.) Darinel Camejo MD [Primary Care Provider] - 05/16/20 8:15 am Patient Instructions/Handouts: Metoprolol (By mouth), Meclizine (By mouth), Atorvastatin (By mouth), Pantoprazole (By mouth), Lisinopril/Hydrochlorothiazide (By mouth), Ticagrelor (By mouth) Activity/Diet/Wound Care/Special Instructions: Activity Limited until follow-up Follow-up with primary care provider upon discharge Follow-up outpatient with neurology Continue with brilinta 90 mg twice daily for 30 days and follow up with neurology in 1-2 weeks Discuss with neurology about transitioning to Plavix 75 mg and aspirin 81 mg after the 30 days of Brilinta Continue current diet Discharge Disposition: HOME SELF-CARE
--- NOTE | 2020-05-09 13:35 | CDI ---
Documentation Clarification Form Date: 05/09/2020 01:03:00 PM From: Virginia Burr Phone: If you have a question about this query, please contact Leah Cummings, Embalmer Assistant at [phone] between 8am and 5pm. Admit Date: 05/02/2020 09:36:00 PM Patient Name: Sandra Singh I Visit Number: [id number] Discharge Date: 05/06/2020 02:55:00 PM ATTENTION: The Clinical Documentation Specialists (CDI) and [facility] Coding Staff appreciate your assistance in clarifying documentation. Please respond to the clarification below the line at the bottom and electronically sign. The CDI & [facility] Coding staff will review the response and follow-up if needed. Please note: Queries are made part of the Legal Health Record. If you have any questions, please contact the author of this message via ITS. Dr. Angélica Romero Per DCS and throughout chart recurrent CVA/TIA is documented. Please clairfy if patient had a TIA or CVA. History/risk factors: aphasia HTN urgency NIH 4 Stroke code Clinical Indicators: CT:age related cerebral atrophy MRI/MRA: Tiny eccentric aneurysm right distal ICA Treatment: Bilanta 90 mg. aspirin 325 mg In your professional opinion, please clarify if patient had a CVA or TIA. Cause of Stroke/CVA: Stenosis/Occlusion Embolic Thrombolytic Hypertension Other (please specify) Unable to Determine Other (please specify) Unable to Determine TIA. MTDD
--- NOTE | 2020-06-06 13:46 | CDI ---
Documentation Clarification Form Date: 06/06/2020 01:30:00 PM From: Virginia Burr Phone: If you have a question about this query, please contact Leah Cummings, Spring Assembler at [phone] between 8am and 5pm. Admit Date: 05/02/2020 09:36:00 PM Patient Name: Sandra Singh I Visit Number: [id number] Discharge Date: 05/06/2020 02:55:00 PM ATTENTION: The Clinical Documentation Specialists (CDI) and [facility] Coding Staff appreciate your assistance in clarifying documentation. Please respond to the clarification below the line at the bottom and electronically sign. The CDI & [facility] Coding staff will review the response and follow-up if needed. Please note: Queries are made part of the Legal Health Record. If you have any questions, please contact the author of this message via ITS. Dr. Angélica Romero TIA is documented on your query response and throughout the chart. Additional clarification regarding the etiology of the TIA is requested. Per angiogram head and neck moderate atherosclerotic plaques in bilateral common carotid bulbs. Moderate stenosis of the bilateral ICA's. Please clarify the etiology of the TIA if known. Patient history/risk factors: Personal history of recurrent TIA's Clinical indicators: MRA: tiny eccentric aneurysm distal ASHER MRI: Mild diffuse age related cerebral artery and mild to moderate chronic small vessel ischemic change is re-demonstrated. Echo: borderline pulmonary HTN Treatment: OP follow up continue on Brllanta 90 mg twice daily for the next 30 days then transition to Plavix 75 mg along with 81 mg aspirin. Neuro checks 4. Neurology consult Consult: Neurology Please clarify the etiology of the TIA, if known: [ ] Carotid Sinus Syncope [ ] Carotid Stenosis [ ] Other (please specify): [ ] Etiology unknown or Unable to determine Etiology unknown or Unable to determine MTDD
== END 2020-05-06 14:55 | disposition home health service (06) | DRG 69 ==
LOC: EC 19:26 → 3SCARD 21:36 → 2SICU 05-03 11:02 → 5NMEDONC 05-05 22:09
PROVIDERS: ADMIT Hospitalist; ATTEND Hospitalist
DX: G45.9 Transient cerebral ischemic attack, unspecified (principal); R47.01 Aphasia; N17.9 Acute kidney failure, unspecified; K21.9 Gastro-esophageal reflux disease without esophagitis; K80.20 Calculus of gallbladder without cholecystitis without obstruction; Z20.822 Contact with and (suspected) exposure to COVID-19; E04.1 Nontoxic single thyroid nodule; R73.03 Prediabetes; E66.01 Morbid (severe) obesity due to excess calories; E78.5 Hyperlipidemia, unspecified; G47.33 Obstructive sleep apnea (adult) (pediatric); I11.9 Hypertensive heart disease without heart failure; I16.0 Hypertensive urgency; I25.2 Old myocardial infarction; Z68.38 Body mass index [BMI] 38.0-38.9, adult; Z79.02 Long term (current) use of antithrombotics/antiplatelets; Z79.82 Long term (current) use of aspirin; Z79.899 Other long term (current) drug therapy; Z80.3 Family history of malignant neoplasm of breast; Z80.52 Family history of malignant neoplasm of bladder; Z86.73 Personal history of transient ischemic attack (TIA), and cerebral infarction without residual deficits; Z96.642 Presence of left artificial hip joint; Z85.828 Personal history of other malignant neoplasm of skin; Z80.41 Family history of malignant neoplasm of ovary; Z82.61 Family history of arthritis; Z90.49 Acquired absence of other specified parts of digestive tract; Z88.5 Allergy status to narcotic agent; Z88.2 Allergy status to sulfonamides; Z88.8 Allergy status to other drugs, medicaments and biological substances; Z91.040 Latex allergy status; M15.9 Polyosteoarthritis, unspecified; G31.9 Degenerative disease of nervous system, unspecified; R20.0 Anesthesia of skin
CPT/HCPCS: 36415; 70450; 70496; 70498; 70544; 70551; 71046; 80048; 80053; 80061; 82607; 82746; 83036; 84443; 84484; 85025; 85610; 85730; 87635; 93005; 93306; 95819; 99285

== ENCOUNTER 2020-05-20 09:51 | Emergency (ER) | payer MEDICARE, OTHER ==
[2020-05-20 10:02] VITALS: BP 156/82; PULSE 75; RESP 18; TEMP 98
[2020-05-20 10:28] LABS: Basophils % (A) 1 %; Eosinophils # (A) 0.1 k/uL (0-0.7); Eosinophils % (A) 2 %; HCT 41.5 % (34.0-46.0); HGB 14.5 gm/dL (11.4-16.0); Lymphocytes # (A) 1.4 k/uL (1.0-4.8); Lymphocytes % (A) 23 %; MCH 29.3 pg (25.0-35.0); MCV 83.6 fL (80.0-100.0); Mean Platelet Volume 7.1; Monocytes # (A) 0.4 k/uL (0-1.0); Monocytes % (A) 6 %; Neutrophils % (A) 67 %; Platelet Count 402 k/uL (150-450); RBC 4.97 m/uL (3.80-5.40); RDW 12.6 % (11.5-15.5)
[2020-05-20 10:36] LABS: Albumin 4.3 g/dL (3.5-5.0); Calcium 9.3 mg/dL (8.4-10.2); Potassium 3.6 mmol/L (3.5-5.1); Total Bilirubin 0.7 mg/dL (0.2-1.3); Total Protein 7.3 g/dL (6.3-8.2)
[2020-05-20 10:36] LABS: Appearance,Urine Clear (Clear); Bacteria,Urine Rare /hpf; Bilirubin,Urine Negative (Negative); Blood,Urine Negative (Negative); Color,Urine Yellow; Glucose,Urine (UA) Negative (Negative); Ketones,Urine Negative (Negative); Leukocyte Esterase,Urine Small (Negative); Mucus,Urine Rare /hpf; Nitrite,Urine Negative (Negative); Protein,Urine Trace (Negative); RBC,Urine 1 /hpf (0-5); Squamous Epithelial Cell,Urine 2 /hpf (0-4); Urobilinogen,Urine <2.0 mg/dL (<2.0); WBC,Urine 1 /hpf (0-5)
--- NOTE | 2020-05-20 11:03 | ED ---
Recheck HPI - General Chief Complaint: Recheck/Abnormal Lab/Rx Stated Complaint: kidney failure-sent by PCP Time Seen by Provider: 05/20/20 10:14 Source: patient Mode of arrival: ambulatory Limitations: no limitations - History of Present Illness Initial Comments: Patient is a 69-year-old female, history of hypertension, TIA, presenting to the emergency department as a request from her PCP due to abnormal labs. Patient states she had blood drawn a few days ago and received a call from their office stating that she needed to go to the ER because her kidneys were failing. Patient states she has been having a little trouble urinating over the past few days. She is also complaining of increasing shortness of breath over the past 3 weeks. She states some blood tests as doing her hair meets her short of breath. She denies any chest pains today, no abdominal pain, no recent fevers or chills. She denies any nausea or vomiting, no diarrhea. She denies any dysuria. She was recently started on a new hypertension medication as well as blood thinner. She has no further complaints at this time. - Related Data Home Medications Medication Instructions Recorded Confirmed Meclizine [Antivert] 12.5 mg PO TID PRN 05/18/15 05/20/20 Omeprazole 40 mg PO DAILY 03/27/20 05/20/20 Sucralfate [Carafate] 1 gm PO TID 03/27/20 05/20/20 Aspirin 81 mg PO HS 05/20/20 05/20/20 Furosemide [Lasix] 20 mg PO DAILY 05/20/20 05/20/20 Potassium Chloride 10 meq PO DAILY 05/20/20 05/20/20 Previous Rx's Medication Instructions Recorded Atorvastatin [Lipitor] 80 mg PO HS 30 Days #30 tab 05/06/20 Lisinopril-Hctz 20-12.5 mg 1 each PO BID 30 Days #60 tab 05/06/20 [Zestoretic 20-12.5] Metoprolol Tartrate [Lopressor] 25 mg PO BID 30 Days #60 tab 05/06/20 Ticagrelor [Brilinta] 90 mg PO BID@0600,1800 30 Days #60 05/06/20 tab Allergies Allergy/AdvReac Type Severity Reaction Status Date / Time amlodipine Allergy LEG Verified 05/20/20 11:35 SWELLING, HAND NUMBNESS codeine Allergy Itching Verified 05/20/20 11:35 cyclobenzaprine Allergy facial Verified 05/20/20 11:35 swelling,itching latex Allergy Itching Verified 05/20/20 11:35 azithromycin [From Zithromax] AdvReac Abdominal Verified 05/20/20 11:35 Pain methylprednisolone AdvReac Abdominal Verified 05/20/20 11:35 Pain sulfamethoxazole AdvReac Abdominal Verified 05/20/20 11:35 [From Bactrim] Pain tramadol AdvReac Abdominal Verified 05/20/20 11:35 Pain trimethoprim [From Bactrim] AdvReac Abdominal Verified 05/20/20 11:35 Pain Review of Systems ROS Statement: Those systems with pertinent positive or pertinent negative responses have been documented in the HPI. ROS Other: All systems not noted in ROS Statement are negative. Past Medical History Past Medical History: CVA/TIA, GERD/Reflux, Hyperlipidemia, Hypertension, Osteoarthritis (OA), Sleep Apnea/CPAP/BIPAP Additional Past Medical History / Comment(s): "Prediabetic",Gallstones,"has trouble emptying bladder and constant pain" History of Any Multi-Drug Resistant Organisms: None Reported Past Surgical History: Appendectomy, Bladder Surgery, Breast Surgery, Cho lecystectomy, Joint Replacement, Orthopedic Surgery Additional Past Surgical History / Comment(s): HEMORROIDS, SKIN CA REMOVAL,Lt hip replacement,chip rt breast, cholecystectomy 03/27/2020 Past Anesthesia/Blood Transfusion Reactions: No Reported Reaction Additional Past Anesthesia/Blood Transfusion Reaction / Comment(s): no hx blood transfusion Past Psychological History: No Psychological Hx Reported Smoking Status: Never smoker Past Alcohol Use History: None Reported Past Drug Use History: None Reported - Past Family History Mother Family Medical History: Rheumatoid Arthritis (RA) Father Family Medical History: Cancer Additional Family Medical History / Comment(s): sarcoma abdominal area Sister(s) Family Medical History: Cancer Additional Family Medical History / Comment(s): #1 sister ovarian and bladder CA,#2 sister breast CA Brother(s) Family Medical History: CVA/TIA General Exam - General Exam Comments Initial Comments: GENERAL: Patient is well-developed and well-nourished. Patient is nontoxic and in no acute distress. HEAD: Atraumatic, normocephalic. EYES: Pupils equal round and reactive to light, extraocular movements intact, sclera anicteric, conjunctiva are normal. Eyelids were unremarkable. ENT: TMs normal, nares patent, oropharynx clear without exudates. Moist mucous membranes. NECK: Normal range of motion, supple without lymphadenopathy or JVD. LUNGS: Unlabored respirations. Breath sounds clear to auscultation bilaterally and equal. No wheezes rales or rhonchi. HEART: Regular rate and rhythm without murmurs, rubs or gallops. ABDOMEN: Soft, nontender, normoactive bowel sounds. No guarding, no rebound. No masses appreciated. : Deferred MUSCULOSKELETAL: Normal extremities with adequate strength and normal range of motion, no pitting or edema. No clubbing or cyanosis. NEUROLOGICAL: Patient is alert and oriented x 3. Motor and sensory are also intact. Cranial nerves II through XII grossly intact. Symmetrical smile. Normal speech, normal gait. PSYCH: Normal mood, normal affect. SKIN: Warm, Dry, normal turgor, no rashes or lesions noted. Limitations: no limitations Course Vital Signs 05/20/20 09:58 Temperature 98 F Pulse Rate 75 Respiratory 18 Rate Blood Pressure 156/82 O2 Sat by Pulse 97 Oximetry Medical Decision Making - Medical Decision Making Patient is a 69-year-old female with history of hypertension, TIA, presenting after her doctor's office called her and told her she was in kidney failure and to go to the hospital. She has no previous history of kidney disease. She has been urinating a little bit less over the last 2-3 days. She is also complaining of shortness of breath with increasing over the past 3 weeks. Exam is unremarkable today. Labs show normal white count, kidney function is stable with creatinine of 1.58. Troponin, BNP are both normal, urinalysis normal. Chest x-ray shows no acute process. Patient is stable for discharge. She can follow up with her primary care physician regarding kidney function. Patient is in agreement this plan of care. Return parameters were discussed with the patient she verbalized understanding. Case discussed Dr. Coon. - Lab Data Result diagrams: 05/20/20 10:10 05/20/20 10:10 Lab Results 05/20/20 05/20/20 05/20/20 Range/Units 10:10 10:10 10:14 WBC 6.0 (3.8-10.6) k/uL RBC 4.97 (3.80-5.40) m/uL Hgb 14.5 (11.4-16.0) gm/dL Hct 41.5 (34.0-46.0) % MCV 83.6 (80.0-100.0) fL MCH 29.3 (25.0-35.0) pg MCHC 35.0 (31.0-37.0) g/dL RDW 12.6 (11.5-15.5) % Plt Count 402 (150-450) k/uL MPV 7.1 Neutrophils % 67 % Lymphocytes % 23 % Monocytes % 6 % Eosinophils % 2 % Basophils % 1 % Neutrophils # 4.0 (1.3-7.7) k/uL Lymphocytes # 1.4 (1.0-4.8) k/uL Monocytes # 0.4 (0-1.0) k/uL Eosinophils # 0.1 (0-0.7) k/uL Basophils # 0.0 (0-0.2) k/uL PT (9.0-12.0) sec INR (<1.2) APTT (22.0-30.0) sec Sodium 138 (137-145) mmol/L Potassium 3.6 (3.5-5.1) mmol/L Chloride 101 (98-107) mmol/L Carbon Dioxide 26 (22-30) mmol/L Anion Gap 11 mmol/L BUN 29 H (7-17) mg/dL Creatinine 1.58 H (0.52-1.04) mg/dL Est GFR (CKD-EPI)AfAm 38 (>60 ml/min/1.73 sqM) Est GFR (CKD-EPI)NonAf 33 (>60 ml/min/1.73 sqM) Glucose 178 H (74-99) mg/dL Calcium 9.3 (8.4-10.2) mg/dL Total Bilirubin 0.7 (0.2-1.3) mg/dL AST 24 (14-36) U/L ALT 23 (4-34) U/L Alkaline Phosphatase 93 (38-126) U/L Troponin I (0.000-0.034) ng/mL NT-Pro-B Natriuret Pep pg/mL Total Protein 7.3 (6.3-8.2) g/dL Albumin 4.3 (3.5-5.0) g/dL Urine Color Yellow Urine Appearance Clear (Clear) Urine pH 5.0 (5.0-8.0) Ur Specific [place] 1.020 (1.001-1.035) Urine Protein Trace H (Negative) Urine Glucose (UA) Negative (Negative) Urine Ketones Negative (Negative) Urine Blood Negative (Negative) Urine Nitrite Negative (Negative) Urine Bilirubin Negative (Negative) Urine Urobilinogen <2.0 (<2.0) mg/dL Ur Leukocyte Esterase Small H (Negative) Urine RBC 1 (0-5) /hpf Urine WBC 1 (0-5) /hpf Ur Squamous Epith Cells 2 (0-4) /hpf Urine Bacteria Rare H (None) /hpf Urine Mucus Rare H (None) /hpf 05/20/20 05/20/20 05/20/20 Range/Units 10:40 10:41 10:41 WBC (3.8-10.6) k/uL RBC (3.80-5.40) m/uL Hgb (11.4-16.0) gm/dL Hct (34.0-46.0) % MCV (80.0-100.0) fL MCH (25.0-35.0) pg MCHC (31.0-37.0) g/dL RDW (11.5-15.5) % Plt Count (150-450) k/uL MPV Neutrophils % % Lymphocytes % % Monocytes % % Eosinophils % % Basophils % % Neutrophils # (1.3-7.7) k/uL Lymphocytes # (1.0-4.8) k/uL Monocytes # (0-1.0) k/uL Eosinophils # (0-0.7) k/uL Basophils # (0-0.2) k/uL PT 10.1 (9.0-12.0) sec INR 0.9 (<1.2) APTT 21.4 L (22.0-30.0) sec Sodium (137-145) mmol/L Potassium (3.5-5.1) mmol/L Chloride (98-107) mmol/L Carbon Dioxide (22-30) mmol/L Anion Gap mmol/L BUN (7-17) mg/dL Creatinine (0.52-1.04) mg/dL Est GFR (CKD-EPI)AfAm (>60 ml/min/1.73 sqM) Est GFR (CKD-EPI)NonAf (>60 ml/min/1.73 sqM) Glucose (74-99) mg/dL Calcium (8.4-10.2) mg/dL Total Bilirubin (0.2-1.3) mg/dL AST (14-36) U/L ALT (4-34) U/L Alkaline Phosphatase (38-126) U/L Troponin I <0.012 (0.000-0.034) ng/mL NT-Pro-B Natriuret Pep 571 pg/mL Total Protein (6.3-8.2) g/dL Albumin (3.5-5.0) g/dL Urine Color Urine Appearance (Clear) Urine pH (5.0-8.0) Ur Specific [place] (1.001-1.035) Urine Protein (Negative) Urine Glucose (UA) (Negative) Urine Ketones (Negative) Urine Blood (Negative) Urine Nitrite (Negative) Urine Bilirubin (Negative) Urine Urobilinogen (<2.0) mg/dL Ur Leukocyte Esterase (Negative) Urine RBC (0-5) /hpf Urine WBC (0-5) /hpf Ur Squamous Epith Cells (0-4) /hpf Urine Bacteria (None) /hpf Urine Mucus (None) /hpf - EKG Data EKG Comments: Normal sinus rhythm with sinus arrhythmia, no signs of acute ischemia. Ventricular rate 62, WI interval 164, QTC 414. Similar to previous on 05/02/2020. Disposition Clinical Impression: Abnormal laboratory test, Decreased urination, Dyspnea Disposition: HOME SELF-CARE Condition: Stable Instructions (If sedation given, give patient instructions): Normal Exam (ED) Additional Instructions: Please return to the Emergency Department if symptoms worsen or any other c oncerns. Follow-up with your PCP as discussed. Is patient prescribed a controlled substance at d/c from ED?: No Referrals: Darinel Camejo MD [Primary Care Provider] - 1-2 days Time of Disposition: 12:21
[2020-05-20 11:29] LABS: INR 0.9 (<1.2); Prothrombin Time 10.1 sec (9.0-12.0)
--- NOTE | 2020-05-20 11:31 | XR ---
EXAMINATION TYPE: XR chest 2V DATE OF EXAM: 05/20/2020 COMPARISON: 05/02/2020 TECHNIQUE: PA and lateral views submitted. HISTORY: Shortness of breath FINDINGS: The lungs are clear and there is no pneumothorax, pleural effusion, or focal pneumonia. Heart size normal. No overt failure. Arthropathy of the shoulders. Biapical pleural thickening. Hypertrophic and degenerative change of the spine. IMPRESSION: 1. No acute process.
[2020-05-20 11:51] LABS: Partial Thromboplastin Time 21.4 sec (22.0-30.0)
== END 2020-05-20 12:52 | disposition home or self-care (01) ==
LOC: EC 09:51
DX: R79.9 Abnormal finding of blood chemistry, unspecified (principal); R34 Anuria and oliguria; R06.00 Dyspnea, unspecified; K21.9 Gastro-esophageal reflux disease without esophagitis; I10 Essential (primary) hypertension; E78.5 Hyperlipidemia, unspecified; G47.30 Sleep apnea, unspecified; Z79.82 Long term (current) use of aspirin; Z79.899 Other long term (current) drug therapy; Z88.5 Allergy status to narcotic agent; Z88.8 Allergy status to other drugs, medicaments and biological substances; Z91.040 Latex allergy status; Z88.1 Allergy status to other antibiotic agents; Z88.2 Allergy status to sulfonamides; Z86.73 Personal history of transient ischemic attack (TIA), and cerebral infarction without residual deficits; Z96.642 Presence of left artificial hip joint; Z85.828 Personal history of other malignant neoplasm of skin
CPT/HCPCS: 36415; 71046; 80053; 81001; 83880; 84484; 85025; 85610; 85730; 93005; 99283

== ENCOUNTER → 2020-06-14 | Outpatient (CLI) | payer MEDICARE, OTHER | LOC: CPPFTMAIN 10:05 | PROVIDERS: ATTEND Internal Medicine Cardiovascular Disease | DX: R06.02 Shortness of breath (principal) | CPT/HCPCS: 94060; 94726; 94729 ==

== ENCOUNTER → 2020-10-24 | Outpatient (CLI) | payer MEDICARE, OTHER ==
--- NOTE | 2020-10-24 15:21 | US ---
EXAMINATION TYPE: US kidneys/renal and bladder DATE OF EXAM: 10/24/2020 COMPARISON: CT 2020 CLINICAL HISTORY: N18.32 chronic kidney disease, Stage 3b. EXAM MEASUREMENTS: Right Kidney: 9.2x4.5x4.8 cm Left Kidney: 9.7x5.1x4.0 cm Right Kidney: wnl Left Kidney: wnl Bladder: wnl Bilateral Jets seen: Yes There is no evidence for hydronephrosis at this point in time. No nephrolithiasis is seen. No merrick s are identified. The urinary bladder is anechoic. Bilateral ureteral jets are seen. IMPRESSION: No distinct abnormality seen.
== END | disposition home or self-care (01) ==
LOC: RADUSWWP 14:45
PROVIDERS: ATTEND Internal Medicine Nephrology
DX: N18.32 Chronic kidney disease, stage 3b (principal)
CPT/HCPCS: 76770

== ENCOUNTER → 2020-12-02 | Outpatient (CLI) | payer MEDICARE, OTHER ==
--- NOTE | 2020-12-05 14:58 | MM ---
Reason for exam: screening (asymptomatic). Last mammogram was performed 1 year and 4 months ago. History: Patient is postmenopausal and has history of other cancer at age 29. Family history of premenopausal breast cancer in sister at age 63. Benign right mammotome panel of the right breast, January 31, 2010. Took hormonal contraceptives for 14 years beginning at age 19. Physical Findings: A clinical breast exam by your physician is recommended on an annual basis and results should be correlated with mammographic findings. MG 3D Screening Mammo W/Cad Bilateral CC and MLO view(s) were taken. Prior study comparison: August 07, 2019, bilateral MG 3d screening mammo w/cad. May 13, 2018, bilateral MG 3d screening mammo w/cad. January 12, 2016, bilateral MG screening mammo w CAD. Previous mammotome biopsy in the right breast. There is chronic nodularity bilaterally. No significant changes when compared with prior studies. ASSESSMENT: Benign, BI-RAD 2 RECOMMENDATION: Routine screening mammogram of both breasts in 1 year.
== END | disposition home or self-care (01) ==
LOC: RADMAMWWP 13:53
PROVIDERS: ATTEND Family Medicine
DX: Z12.31 Encounter for screening mammogram for malignant neoplasm of breast (principal); Z80.3 Family history of malignant neoplasm of breast; Z78.0 Asymptomatic menopausal state
CPT/HCPCS: 77063; 77067

== ENCOUNTER → 2020-12-21 | Outpatient (CLI) | payer MEDICARE, OTHER ==
--- NOTE | 2020-12-21 11:56 | US ---
EXAMINATION TYPE: US thyroid st tissue head/neck DATE OF EXAM: 12/21/2020 COMPARISON: CT 05/02/2020 and ultrasound 09/17/2011 at 109 CLINICAL HISTORY: 70-year-old female EO4.1 Nontoxic single thyroid nodule. CT showed incidental findi ng of left thyroid nodule. Not on thyroid meds. TECHNIQUE: Multiple sonographic images of the thyroid gland are obtained. FINDINGS: GLAND SIZE: Right Lobe: 5.3 x 1.5 x 1.6 cm Overall Parenchyma: heterogenous Left Lobe: 6.5 x 4.9 x 3.8 cm Overall Parenchyma: heterogeneous Isthmus Thickness: 0.3 cm NODULES RIGHT: # of nodules measured on right: 1 1. 1.5 X 1.2 x 1.3 cm, lower mid, solid or almost completely solid, heterogeneous nodule, which is wider than tall, with smooth margins, without echogenic foci. Prior size: No prior LEFT: # of nodules measured on left: 1 1. 5.5 X 4.6 x 3.7 cm, mid , solid or almost completely solid, isoechoic nodule, which is wider arlene n tall, with smooth margins, with single echogenic focus. Prior size: 4.6 x 3.1 x 3.0 cm on 09/17/2011 ISTHMUS: # of nodules measured in the isthmus: 0 Bilateral neck scanned, no evidence of lymphadenopathy. Rivet Spinner notes: Left thyroid lobe not well seen due to large nodule. IMPRESSION: 1. Thyromegaly, correlate for goiter. A solid 1.5 cm nodule on the right not clearly seen back on the 2012 exam. FNA can be performed. 2. Very large 5.5 cm solid nodule filling the left lobe previously measured 4.6 cm back in 2012. Renetta elate with any prior biopsy results. Biopsy can be considered.
== END | disposition home or self-care (01) ==
LOC: RADUSWWP 08:35
PROVIDERS: ATTEND Internal Medicine Endocrinology, Diabetes & Metabolism
DX: E04.2 Nontoxic multinodular goiter (principal)
CPT/HCPCS: 76536

== ENCOUNTER → 2021-05-22 | Outpatient (CLI) | payer MEDICARE, OTHER ==
[2021-05-22 14:19] LABS: Creatinine,Urine Random 151.1 mg/dL
[2021-05-22 18:26] LABS: Basophils # (A) 0.03 X 10*3/uL (0.00-0.10); Basophils % (A) 0.4 %; Eosinophils # (A) 0.06 X 10*3/uL (0.04-0.35); Eosinophils % (A) 0.9 %; HCT 39.8 % (37.2-46.3); HGB 12.7 g/dL (12.0-15.0); Immature Grans, Automated 0.3 %; Lymphocytes # (A) 2.09 X 10*3/uL (0.90-5.00); MCH 29.2 pg (27.0-32.0); MCHC 31.9 g/dL (32.0-37.0); MCV 91.5 fL (80.0-97.0); Mean Platelet Volume 10.1 fL (9.5-12.2); Monocytes # (A) 0.59 X 10*3/uL (0.20-1.00); Monocytes % (A) 8.8 %; NRBC Per 100 WBC 0 /100 WBCS (0.0-0.0); Neutrophils # (A) 3.95 X 10*3/uL (1.80-7.70); Neutrophils % (A) 58.6 %; Platelet Count 338 X 10*3/uL (140-440); RBC 4.35 X 10*6/uL (4.10-5.20); RDW 12.4 % (11.5-14.5); WBC 6.74 X 10*3/uL (4.50-10.00)
[2021-05-22 18:39] LABS: % Iron Saturation 18.85 (12.00-45.00); African American GFR (CKD) 47.8 (60.0-200.0); Anion Gap 12.1 mmol/L (10.00-18.00); BUN/Creat Ratio 21.08 Ratio (12.00-20.00); Blood Urea Nitrogen 27.4 mg/dL (9.0-27.0); Calcium 9.7 mg/dL (8.7-10.3); Carbon Dioxide 25.9 mmol/L (20.0-27.5); Magnesium 1.9 mg/dL (1.5-2.4); Non-African American GFR(CKD) 41.2 (60.0-200.0); Phosphorus 3.7 mg/dL (2.4-5.1); Uric Acid 7.7 mg/dL (2.9-7.7)
[2021-05-22 19:00] LABS: Albumin 4.5 g/dL (3.8-4.9)
[2021-05-22 20:41] LABS: Appearance,Urine Clear (Clear); Bacteria,Urine None Seen /HPF (None Seen); Bilirubin,Urine Negative (Negative); Blood,Urine Negative (Negative); Color,Urine Yellow (Yellow); Ketones,Urine Negative (Negative); Nitrite,Urine Negative (Negative); Specific Gravity,Urine 1.021 (1.001-1.030); Urobilinogen,Urine 0.2 (0.2,1.0)
== END | disposition home or self-care (01) ==
LOC: LABWHC1 11:18
PROVIDERS: ATTEND Nurse Practitioner Family
DX: N25.81 Secondary hyperparathyroidism of renal origin (principal); E55.9 Vitamin D deficiency, unspecified; N18.32 Chronic kidney disease, stage 3b; M10.9 Gout, unspecified; N39.0 Urinary tract infection, site not specified; D64.9 Anemia, unspecified; R80.9 Proteinuria, unspecified
CPT/HCPCS: 36415; 80048; 81001; 82040; 82306; 82570; 82728; 83540; 83550; 83735; 83970; 84100; 84156; 84550; 85025

== ENCOUNTER 2021-10-10 05:55 | Day surgery (SDC) | payer MEDICARE, OTHER ==
--- NOTE | 2021-10-05 08:23 | P.HPOR ---
History of Present Illness H&P Date: 10/05/21 Chief Complaint: Right hip pain The patient is a 71-year-old female who presents with progressive right hip pain for the past 6 months. She has pain with weightbearing activities in the groin and thigh. She intermittently uses a cane and walker. She's tried medications without much relief. She has a history of a left total hip arthroplasty. Review of Systems As per HPI Past Medical History Past Medical History: CVA/TIA, GERD/Reflux, Hyperlipidemia, Hypertension, Osteoarthritis (OA), Sleep Apnea/CPAP/BIPAP Additional Past Medical History / Comment(s): "Prediabetic",Gallstones,"has trouble emptying bladder and constant pain" History of Any Multi-Drug Resistant Organisms: None Reported Past Surgical History: Appendectomy, Bladder Surgery, Breast Surgery, Cholecystectomy, Joint Replacement, Orthopedic Surgery Additional Past Surgical History / Comment(s): HEMORROIDS, SKIN CA REMOVAL,Lt hip replacement,chip rt breast, cholecystectomy 03/27/2020 Past Anesthesia/Blood Transfusion Reactions: No Reported Reaction Additional Past Anesthesia/Blood Transfusion Reaction / Comment(s): no hx blood transfusion Past Psychological History: No Psychological Hx Reported Smoking Status: Never smoker Past Alcohol Use History: None Reported Past Drug Use History: None Reported - Past Family History Mother Family Medical History: Rheumatoid Arthritis (RA) Father Family Medical History: Cancer Additional Family Medical History / Comment(s): sarcoma abdominal area Sister(s) Family Medical History: Cancer Additional Family Medical History / Comment(s): #1 sister ovarian and bladder CA,#2 sister breast CA Brother(s) Family Medical History: CVA/TIA Medications and Allergies Home Medications Medication Instructions Recorded Confirmed Type Meclizine [Antivert] 12.5 mg PO TID PRN 05/18/15 05/20/20 History Omeprazole 40 mg PO DAILY 03/27/20 05/20/20 History Sucralfate [Carafate] 1 gm PO TID 03/27/20 05/20/20 History Atorvastatin [Lipitor] 80 mg PO HS 30 Days #30 tab 05/06/20 05/20/20 Rx Lisinopril-Hctz 20-12.5 mg 1 each PO BID 30 Days #60 tab 05/06/20 05/20/20 Rx [Zestoretic 20-12.5] Metoprolol Tartrate [Lopressor] 25 mg PO BID 30 Days #60 tab 05/06/20 05/20/20 Rx Ticagrelor [Brilinta] 90 mg PO BID@0600,1800 30 Days #60 05/06/20 05/20/20 Rx tab Aspirin 81 mg PO HS 05/20/20 05/20/20 History Furosemide [Lasix] 20 mg PO DAILY 05/20/20 05/20/20 History Potassium Chloride [Potassium 10 meq PO DAILY 05/20/20 05/20/20 History Chloride ER] Allergies Allergy/AdvReac Type Severity Reaction Status Date / Time amlodipine Allergy LEG Verified 05/20/20 11:35 SWELLING, HAND NUMBNESS codeine Allergy Itching Verified 05/20/20 11:35 cyclobenzaprine Allergy facial Verified 05/20/20 11:35 swelling,itching latex Allergy Itching Verified 05/20/20 11:35 azithromycin [From Zithromax] AdvReac Abdominal Verified 05/20/20 11:35 Pain methylprednisolone AdvReac Abdominal Verified 05/20/20 11:35 Pain sulfamethoxazole AdvReac Abdominal Verified 05/20/20 11:35 [From Bactrim] Pain tramadol AdvReac Abdominal Verified 05/20/20 11:35 Pain trimethoprim [From Bactrim] AdvReac Abdominal Verified 05/20/20 11:35 Pain Physical Examination - Hip right Gait: antalgic Tenderness with palpation: anterior Pain with motion: internal rotation and hip flexion ROM: extension: 0 degrees ROM: flexion: 70 degrees ROM: internal rotation: 0 degrees (With pain) ROM: external rotation: 60 degrees Strength: extension: 5/5 Strength: flexion: 5/5 Strength: abduction: 5/5 Strength: adduction: 5/5 Tests: impingement tests: positive Results The patient is a well-developed well-nourished female a proximally 5 foot 4, 225 pounds of endomorphic habitus. HEENT exam is nonfocal. Neck is supple. Straight leg raise is negative on the right. Clinically she has shortening of the right lower extremity compared to the left. Her distal neurovascular appears intact in the right lower extremity. - Diagnostic results Hip x-ray: image reviewed (2 views of the right hip shows severe osteoarthrosis with [id number] changes.) Hip MRI: image reviewed Assessment and Plan Assessment: Right hip severe osteoarthrosis History of TIAs on Plavix Plan: I talked to the patient at length regarding her condition along with treatment options. At this point she is quite limited because of pain related to her osteoarthrosis despite conservative measures. After thorough discussion she opted to proceed with surgery. We'll plan to proceed with right total arthroscopy utilizing a lateral approach. Risks and benefits were discussed at length in layman's terms. We will reinstitute Plavix postoperatively. Time with Patient: Greater than 30
[2021-10-06 16:28] VITALS: BMI 38.0
[~2021-10-10 05:55] MED LIST changes: +ACETAMINOPHEN TAB 500 MG TAB PO PRN; +MELOXICAM 7.5 MG TAB PO PRN; +MIDAZOLAM 2 MG/2 ML VIAL IV PRN; +ONDANSETRON 4 MG/2 ML VIAL IVP ONE; -REGADENOSON 0.4 MG/5 ML SYRINGE IV ONE; +TRANEXAMIC ACID IN NACL,ISO-OS 1,000 MG in SALINE 1 100ML.BAG IVPB PRN
[2021-10-10 07:03] LABS: Glucose,Whole Blood 123 mg/dL (70-110)
[2021-10-10] MEDS ORDERED: MIDAZOLAM 2 MG/2 ML VIAL IVP ONE (07:24)
[2021-10-10] MEDS ORDERED: fentaNYL (PF) 50 MCG/ML 2 ML AMP IVP ONE (07:24)
[2021-10-10] MEDS ORDERED: NEOSTIGMINE 1 MG/ML 10 ML VIAL ONE (07:39)
[2021-10-10] MEDS ORDERED: GLYCOPYRROLATE 0.2 MG/ML 2 ML VIAL ONE (07:39)
[2021-10-10] MEDS ORDERED: LIDOCAINE 2% INJ 20 MG/ML (2 ML VIAL) ONE (07:39)
[2021-10-10] MEDS ORDERED: ROPIVACAINE 5 MG/ML 30 ML VIAL ONE (07:39)
[2021-10-10] MEDS ORDERED: HYDROmorphone (PF) 1 MG/ML ONE (07:39)
[2021-10-10] MEDS ORDERED: ROCURONIUM 10 MG/ML (5 ML VIAL) IV ONE (07:39)
[2021-10-10] MEDS ORDERED: ePHEDrine 50 MG/ML 1 ML VIAL ONE (07:39)
[2021-10-10] MEDS ORDERED: PROPOFOL 10 MG/ML 20 ML VIAL IV ONE (07:39)
[2021-10-10] MEDS ORDERED: TRANEXAMIC ACID IN NACL,ISO-OS 1,000 MG/100 ML BAG ONE (07:39)
[2021-10-10] MEDS ORDERED: SUCCINYLCHOLINE CHLORIDE 200 MG/10 ML VIAL IV ONE (07:39)
[2021-10-10] MEDS ORDERED: fentaNYL (PF) 50 MCG/ML 2 ML AMP ONE (07:39)
[2021-10-10] MEDS: LACTATED RINGERS 1,000 ML IV SCH ×3 (07:43→20:44)
[2021-10-10] MEDS ORDERED: IV FLUID CONTINUATION 1,000 ML IV ONE (07:43)
[2021-10-10] MEDS ORDERED: ceFAZolin 3,000 MG in SODIUM CHLORIDE 0.9% IRRIGATIO 3,000 ML IRRIGATION ONE (08:14)
[2021-10-10] MEDS ORDERED: NALOXONE 0.4 MG/ML 1 ML VIAL IV PRN (09:31)
[2021-10-10] MEDS ORDERED: HYDROmorphone 0.5 MG/0.5 ML SYRINGE IVP PRN (09:31)
[2021-10-10] MEDS ORDERED: HYDROcodone/APAP 5-325MG 1 EACH TAB PO PRN (09:31)
[2021-10-10] MEDS ORDERED: LACTATED RINGERS 1,000 ML IV ONE (09:34)
--- NOTE | 2021-10-10 09:49 | P.ANPRN ---
Procedure Note - Anesthesia - Nerve Block Performed Right Erector Spinae Single Time Out Performed: Yes ([id number]) Date of Procedure: 10/10/21 Procedure Start Time: Procedure Stop Time: Location of Patient: PreOp Indication: Acute Post-Operative Pain, Dx/Pain Location (Right hip), Requested by Surgeon Specifically requested for management of pain by : Tony David Sedation Type: Sedate with meaningful contact maintained Preparation: Sterile Prep Position: Left Lateral Catheter: None Needle Gauge: 21 Ultrasound used to visualize needle placement: Yes Ultrasound used to observe medication spread: Yes Injectate: 0.5% Ropivacaine (see comment for volume) (30 cc) Blood Aspirated: No Pain Paresthesia on Injection Noted: No Resistance on Injection: Normal Image Stored and Saved: Yes Events: Uneventful and Well Tolerated
--- NOTE | 2021-10-10 09:51 | P.OP ---
Date of Procedure: 10/10/21 Preoperative Diagnosis: Right hip severe osteoarthrosis Postoperative Diagnosis: Same Procedure(s) Performed: Right total hip arthroplastypress-fitlateral approach Implants: Depuy Corail size 12 standard collared press-fit femoral stem, 36+5 cobalt chrome femoral head, 52 mm [place] acetabular shell with neutral polyethylene liner. Anesthesia: shahbaz FENG Surgeon: Tony David Hot Braider #1: Deo Venegas Estimated Blood Loss (ml): 150 Pathology: other (Femoral head) Condition: stable Disposition: PACU Indications for Procedure: The patient is a 71-year-old female who presents with progressive right hip pain secondary to osteoporosis despite conservative measures. A discussion of the risks and benefits of operative intervention versus continued conservative measures was made with patient. She opted to proceed with surgery. Operative risks to include infection, neurovascular injury, development of blood clots, leg length discrepancy, fracture, possible instability and need for subsequent procedures was discussed. Informed consent was obtained. Operative Findings: As below Description of Procedure: The patient was brought to the operating room, and after induction of spinal anesthesia was placed in a lateral decubitus position. The bony prominences were appropriately padded. The pelvis was stable perpendicular to the floor with a pegboard. The right lower extremity was prepped and draped in normal fashion. A 12 cm incision was then made centered over the greater trochanter extending superiorly to level the ASIS and distally in line with the femoral shaft. The skin and subcutaneous tissues were divided sharply. Electrocautery was used for hemostasis. The fascia troy and gluteus phyllis fascia was split in line with the skin incision. The muscle fibers were bluntly dissected proximally. A self-retaining retractor was placed. The anterior and posterior margins of the gluteus medius muscles identified and the anterior two thirds was detached from the greater trochanter with electrocautery. The gluteus minimus tendon was identified and detached in a similar fashion. A wide capsulotomy was performed. The femoral neck fracture was identified in the lower neck cut was made approximately 1 1/2 cm above the level of the lesser trochanter with a sagittal saw at a 45 the shaft. The head was then extracted with a corkscrew. Attention was then paid towards preparing the acetabular. Anterior and posterior retractors were placed. The remaining capsular labral tissues debrided sharply clearly defining the acetabular margins. Began reaming with a 47 mm reamer taking care to initially medialize, then reaming at 45 of abduction and 20 of anteversion. Sequential reaming is performed up to 51 mm. This was down to bleeding bony surface. A trial 52 mm acetabular shell was inserted at 45 of abduction and 20 of anteversion. This was fully seated. There was good rim fit and stability. A neutral polyethylene liner was then impacted. Care taken to avoid any soft tissue interposition. Attention was then paid towards preparing the proximal femur. A box chisel was used to open the metaphyseal region. A canal finder was used to find the femoral canal. Sequential broaching was performed up to a size 12. This is placed in 15 of anteversion with the leg perpendicular floor judging off the trans-epicondylar axis. There is good rotational stability. A calcar mill was used to fashion the medial calcar. A trial standard neck along with a 36 mm + 5 trial head was placed. The hip was gently reduced. It was taken through range of motion. The hip was felt to be stable in flexion and extension with internal and external rotation. I felt there was adequate faith of soft tissue tension. The h ip was gently dislocated. The trial components removed. Pulsatile lavage was utilized. The final size 12 standard collared femoral stem was inserted again with the leg perpendicular to the floor in 15 of anteversion. Again there was good rotational stability. A 36 mm + 5 cobalt chrome femoral head was gently impacted. The hip was gently reduced. Again it was taken through motion and felt to be stable in flexion and extension with internal and external rotation. Pulsatile lavage was again utilized. With the leg in abduction the gluteus minimus and medius tendons reattached to the greater trochanter with #2 Ethibond suture. There was minimal drainage therefore a deep drain was not placed. The fascia troy and gluteus phyllis fascia was closed with #2 Ethibond suture. The subcutaneous tissues were reapproximated interrupted 2-0 Vicryl sutures. The skin was reapproximated with 3-0 subcuticular strata fix suture. Skin tape and adhesive was applied. A sterile dressing was applied. The patient was awoken from sedation and transferred to recovery room in good condition. Blood loss was estimated 150 mL. No complications were incurred. Sponge and needle counts were correct in the case. Deo BOND assisted during the major composes case to include exposure, implantation, and closure.
[2021-10-10] MEDS: fentaNYL (PF) 50 MCG/ML 2 ML AMP IV PRN ×2 (10:01→10:08)
--- NOTE | 2021-10-10 10:22 | XR ---
EXAMINATION TYPE: XR Hip Limited RT DATE OF EXAM: 10/10/2021 COMPARISON: NONE HISTORY: Postop TECHNIQUE: One view submitted. FINDINGS: There is postsurgical change in near anatomic alignment. There is soft tissue edema and emphysema. IMPRESSION: 1. Postoperative change. Appears in near-anatomic alignment.
[2021-10-10] MEDS ORDERED: HYDROmorphone 0.5 MG/0.5 ML SYRINGE IVP ONE ×3 (10:27→14:42)
[2021-10-10] MEDS ORDERED: ONDANSETRON 4 MG/2 ML VIAL IVP ONE (11:25)
[2021-10-10] MEDS ORDERED: SODIUM CHLORIDE 0.9% 1,000 ML IV ONE (11:29)
[2021-10-10] MEDS ORDERED: METOCLOPRAMIDE 5 MG/ML 2 ML VIAL IVP ONE (12:20)
[2021-10-10] MEDS: HYDROmorphone 0.5 MG/0.5 ML SYRINGE IVP PRN (16:41)
[2021-10-10] MEDS ORDERED: ONDANSETRON 4 MG/2 ML VIAL IVP PRN (17:36)
--- NOTE | 2021-10-10 18:25 | P.CONS ---
History of Present Illness - Reason for Consult Consult date: 10/10/21 - History of Present Illness Patient is a 71-year-old female with PMH of TIA, hypertension, GERD presents to [facility] for elective surgery. She underwent right hip arthroplasty. [facility] physicians has been consulted for medical management of this patient. Patient was seen and examined postoperatively. She reported chest discomfort and 2 episodes of bilious nausea and vomiting. She is unable to effectively describe her chest pain. She denies any headache, fever or chills, cough, shortness of breath, palpitations, changes in urination or bowel habits. No changes in appetite or weight. She denies any dizziness, numbness/weakness/tingling of extremities. Review of systems was performed and is negative except above. General: non toxic, no distress, appears at stated age Derm: warm, dry Head: atraumatic, normocephalic, symmetric Eyes: EOMI, no lid lag, anicteric sclera Mouth: no lip lesion, mucus membranes moist Cardiovascular: S1S2 reg, no murmur Lungs: CTA bilateral, no rhonchi, no rales , no accessory muscle use Ext: no gross muscle atrophy, no edema, no contractures Neuro: no focal neuro deficits Psych: Alert, oriented, appropriate affect #Chest pain #Nausea and vomiting Chronic conditions: TIA, hypertension, GERD Trend troponin/EKG to rule out ACS. Start telemetry monitoring. CBC and BMP will be ordered. Zofran as needed for nausea and vomiting. Patient started on Xarelto for DVT prophylaxis. Restart Plavix and Lipitor when appropriate. Restart lisinopril, hydrochlorothiazide and metoprolol. Monitor vitals, adjust medication if necessary. Restart Protonix. DVT prophylaxis: [SCDs] Discussed with: [Patient] Anticipated discharge: [1-2 days] Anticipated discharge place: [Home] A total of [35] minutes was spent on the care of this complex patient more than 50% of the time was spent in counseling and care coordination. Patient names her boyfriend Ruddy decision maker if she can't make decisions for herself. Patient would like to be full code. Past Medical History Past Medical History: CVA/TIA, GERD/Reflux, Hyperlipidemia, Hypertension, Osteoarthritis (OA), Sleep Apnea/CPAP/BIPAP Additional Past Medical History / Comment(s): "Prediabetic",Gallstones,"has trouble emptying bladder and constant pain" History of Any Multi-Drug Resistant Organisms: None Reported Past Surgical History: Appendectomy, Bladder Surgery, Breast Surgery, Cholecystectomy, Joint Replacement, Orthopedic Surgery Additional Past Surgical History / Comment(s): HEMORROIDS, SKIN CA REMOVAL,Lt hip replacement,chip rt breast, cholecystectomy 03/27/2020, TRH 10/10/21 Past Anesthesia/Blood Transfusion Reactions: No Reported Reaction Additional Past Anesthesia/Blood Transfusion Reaction / Comm: no hx blood transfusion Past Psychological History: No Psychological Hx Reported Smoking Status: Never smoker Past Alcohol Use History: None Reported Past Drug Use History: None Reported - Past Family History Mother Family Medical History: Rheumatoid Arthritis (RA) Father Family Medical History: Cancer Additional Family Medical History / Comment(s): sarcoma abdominal area Sister(s) Family Medical History: Cancer, Pneumonia Additional Family Medical History / Comment(s): #1 sister ovarian and gallbladder CA,#2 sister breast CA Brother(s) Family Medical History: CVA/TIA Additional Family Medical History / Comment(s): 1 brother mult strokes Medications and Allergies Home Medications Medication Instructions Recorded Confirmed Type Meclizine [Antivert] 12.5 mg PO BID 05/18/15 10/06/21 History Omeprazole 40 mg PO QAM 03/27/20 10/06/21 History Sucralfate [Carafate] 1 gm PO BID 03/27/20 10/06/21 History Atorvastatin [Lipitor] 80 mg PO HS 30 Days #30 tab 05/06/20 10/06/21 Rx Lisinopril-Hctz 20-12.5 mg 1 each PO BID 30 Days #60 tab 05/06/20 10/06/21 Rx [Zestoretic 20-12.5] Metoprolol Tartrate [Lopressor] 25 mg PO BID 30 Days #60 tab 05/06/20 10/06/21 Rx Cholecalciferol [Vitamin D3 (25 100 mcg PO DAILY 10/06/21 10/06/21 History Mcg = 1000 Iu)] Clopidogrel [Plavix] 75 mg PO DAILY 10/06/21 10/06/21 History Ferrous Sulfate [Feosol] 325 mg PO DAILY 10/06/21 10/06/21 History Allergies Allergy/AdvReac Type Severity Reaction Status Date / Time amlodipine Allergy LEG Verified 10/10/21 06:29 SWELLING, HAND NUMBNESS codeine Allergy Itching Verified 10/10/21 06:29 cyclobenzaprine Allergy facial Verified 10/10/21 06:29 swelling,itching latex Allergy Itching Verified 10/10/21 06:29 ticagrelor [From Brilinta] Allergy Dyspnea Verified 10/10/21 06:29 azithromycin [From Zithromax] AdvReac Abdominal Verified 10/10/21 06:29 Pain methylprednisolone AdvReac Abdominal Verified 10/10/21 06:29 Pain sulfamethoxazole AdvReac Abdominal Verified 10/10/21 06:29 [From Bactrim] Pain tramadol AdvReac Abdominal Verified 10/10/21 06:29 Pain trimethoprim [From Bactrim] AdvReac Abdominal Verified 10/10/21 06:29 Pain Physical Exam Vitals: Vital Signs Temp Pulse Pulse Pulse Pulse Resp BP 10/10/21 15:13 96 F L 72 10/10/21 14:20 47 L 16 10/10/21 13:50 47 L 16 10/10/21 13:19 62 16 10/10/21 12:50 52 L 16 10/10/21 12:20 51 L 16 10/10/21 11:50 46 L 16 139/70 10/10/21 11:22 50 L 16 169/80 10/10/21 11:07 58 L 16 162/82 10/10/21 10:52 61 16 163/81 10/10/21 10:39 63 16 178/84 10/10/21 10:24 51 L 16 177/78 10/10/21 10:09 67 16 159/78 10/10/21 09:54 96.9 F L 62 16 163/78 10/10/21 07:33 62 16 140/65 10/10/21 06:45 97.7 F 62 16 141/72 BP Pulse Ox 10/10/21 15:13 160/83 95 10/10/21 14:20 139/63 98 10/10/21 13:50 154/73 99 10/10/21 13:19 152/74 98 10/10/21 12:50 148/71 95 10/10/21 12:20 141/70 95 10/10/21 11:50 95 10/10/21 11:22 93 L 10/10/21 11:07 96 10/10/21 10:52 97 10/10/21 10:39 96 10/10/21 10:24 97 10/10/21 10:09 96 10/10/21 09:54 98 10/10/21 07:33 98 10/10/21 06:45 94 L Intake and Output 10/10/21 10/10/21 10/10/21 06:59 14:59 22:59 Intake Total 2351 Output Total 150 Balance 2201 Intake: IV 2351 Output: Estimated Blood Loss 150 Other: # Voids 1 Weight 98.8 kg 98.8 kg Results Labs: Abnormal Lab Results - Last 24 Hours (Table) 10/10/21 Range/Units 07:02 POC Glucose (mg/dL) 123 H (70-110) mg/dL
[2021-10-10 18:45] LABS: HGB 11.2 gm/dL (11.4-16.0); MCH 29.3 pg (25.0-35.0); MCV 88.8 fL (80.0-100.0); Mean Platelet Volume 7.1; Platelet Count 315 k/uL (150-450); RBC 3.83 m/uL (3.80-5.40); RDW 12.4 % (11.5-15.5); WBC 12.1 k/uL (3.8-10.6)
[2021-10-10 18:55] LABS: African American GFR (CKD) 41 (>60 ml/min/1.73 sqM); Anion Gap 13 mmol/L; Blood Urea Nitrogen 30 mg/dL (7-17); Calcium 8.9 mg/dL (8.4-10.2); Carbon Dioxide 25 mmol/L (22-30); Chloride 103 mmol/L (98-107); Glucose 171 mg/dL (74-99); Non-African American GFR(CKD) 35 (>60 ml/min/1.73 sqM); Potassium 4.6 mmol/L (3.5-5.1); Sodium 141 mmol/L (137-145)
[2021-10-10] MEDS: ATORVASTATIN 80 MG TAB PO SCH (20:41)
[2021-10-10] MEDS: SENNOSIDES-DOCUSATE SODIUM 1 EACH TAB PO SCH (20:42)
[2021-10-10] MEDS: SUCRALFATE 1 GM TAB PO SCH (20:42)
[2021-10-10] MEDS: METOPROLOL TARTRATE 25 MG TAB PO SCH (20:43)
[2021-10-10] MEDS: LISINOPRIL-HCTZ 20-12.5 MG 1 EACH TAB PO SCH (20:43)
[2021-10-10] MEDS: HYDROcodone/APAP 7.5-325MG 1 EACH TAB PO PRN (23:51)
[2021-10-11] MEDS: SUCRALFATE 1 GM TAB PO SCH ×2 (08:24→20:13)
[2021-10-11] MEDS: PANTOPRAZOLE 40 MG TABLET PO SCH (08:24)
[2021-10-11] MEDS: METOPROLOL TARTRATE 25 MG TAB PO SCH ×2 (08:24→20:09)
[2021-10-11] MEDS: HYDROcodone/APAP 7.5-325MG 1 EACH TAB PO PRN ×3 (08:24→20:10)
[2021-10-11] MEDS: LISINOPRIL-HCTZ 20-12.5 MG 1 EACH TAB PO SCH ×2 (08:28→20:09)
[2021-10-11] MEDS ORDERED: RIVAROXABAN 10 MG TAB PO SCH (09:00)
--- NOTE | 2021-10-11 10:33 | P.PN ---
Subjective Progress Note Date: 10/11/21 Principal diagnosis: Right hip osteoarthritis Patient was seen at bedside this morning sitting up in chair. Patient says she did work with physical therapy and walk around room little bit using walker. Patient says she did not go up and down steps. Patient says she is open to rehab versus going home in the next couple days. Patient says her son will be able to help her if she does go home for several days. Patient says she has not had bowel movement yet. Patient says she has urinated since surgery. Patient denies chest pain, fever, shortness of breath, nausea, vomiting, change in vision, loss of bowel/bladder control. Objective - Vital Signs Vital signs: Vital Signs Temp 99.3 F 10/11/21 08:00 Pulse 71 10/11/21 08:00 Resp 16 10/11/21 02:00 BP 117/58 10/11/21 08:00 Pulse Ox 95 10/11/21 08:00 FiO2 Intake & Output 10/10/21 10/11/21 10/11/21 18:59 06:59 18:59 Intake Total 2351 Output Total 150 200 Balance 2201 -200 Weight 98.8 kg Intake: IV 2351 Output: Urine 200 Estimated Blood Loss 150 Other: Voiding Method Bedside Commode # Voids 1 2 - Exam Right hip: Incision is clean, dry, and intact. The exofin fusion tape is in good condition. There is minimal soft tissue swelling and ecchymosis surrounding the medial and lateral aspects of the incision. Calf is soft, no tenderness with palpation. Plantar flexion, dorsiflexion, EHL, FHL are intact. Sensory exam to light touch throughout the extremity is intact, dorsal pedis pulses 2+. - Labs CBC & Chem 7: 10/10/21 18:26 10/10/21 18:26 Labs: Abnormal Lab Results - Last 24 Hours (Table) 10/10/21 10/10/21 Range/Units 18:26 18:26 WBC 12.1 H (3.8-10.6) k/uL Hgb 11.2 L (11.4-16.0) gm/dL BUN 30 H (7-17) mg/dL Creatinine 1.47 H (0.52-1.04) mg/dL Glucose 171 H (74-99) mg/dL Assessment and Plan Assessment: 1. Right hip osteoarthritis Postoperative day #1 status post right total hip arthroplasty Plan: 1. Right hip osteoarthritis - right total hip arthroplasty performed yesterday, 10/10/2021. Patient stable at bedside this morning. Plan for discharge home with health services versus to [facility] tomorrow 2. Appreciate medical management 3. Pain management - [place]; IV meds only if necessary 4. DVT prophylaxis - Plavix 5. GI prophylaxis - senna 6. PT/OT - weightbearing as tolerated with walker 7. Encourage incentive spirometer use 8. Discharge planning - plan for discharge home with health services versus to [facility] tomorrow Time with Patient: Less than 30
[2021-10-11 11:07] LABS: Basophils # (A) 0.03 X 10*3/uL (0.00-0.10); Basophils % (A) 0.3 %; Eosinophils # (A) 0.05 X 10*3/uL (0.04-0.35); Eosinophils % (A) 0.5 %; HCT 28.1 % (37.2-46.3); HGB 9.1 g/dL (12.0-15.0); Immature Grans, Automated 0.4 %; Lymphocytes # (A) 1.04 X 10*3/uL (0.90-5.00); Lymphocytes % (A) 10.7 %; MCH 29.1 pg (27.0-32.0); MCHC 32.4 g/dL (32.0-37.0); MCV 89.8 fL (80.0-97.0); Mean Platelet Volume 10.7 fL (9.5-12.2); Monocytes % (A) 11.3 %; NRBC Per 100 WBC 0 /100 WBCS (0.0-0.0); Neutrophils # (A) 7.47 X 10*3/uL (1.80-7.70); Neutrophils % (A) 76.8 %; Platelet Count 264 X 10*3/uL (140-440); RBC 3.13 X 10*6/uL (4.10-5.20); RDW 12.8 % (11.5-14.5); WBC 9.73 X 10*3/uL (4.50-10.00)
--- NOTE | 2021-10-11 12:25 | P.PN ---
Subjective Progress Note Date: 10/11/21 Patient was seen and examined. No acute events overnight. Patient reports well-controlled pain in her right hip. Her chest pain is resolved. No more nausea and vomiting. She has no other complaints. General: non toxic, no distress, appears at stated age Derm: warm, dry Head: atraumatic, normocephalic, symmetric Eyes: EOMI, no lid lag, anicteric sclera Mouth: no lip lesion, mucus membranes moist Cardiovascular: S1S2 reg, no murmur Lungs: CTA bilateral, no rhonchi, no rales , no accessory muscle use Ext: no gross muscle atrophy, no edema, no contractures Neuro: no focal neuro deficits Psych: Alert, oriented, appropriate affect #Acute blood loss anemia Resolved: Chest pain, nausea and vomiting Chronic conditions: TIA, hypertension, GERD, CKD Acute blood loss from surgery. Expected resolved. Continue to monitor. Troponins have been trended and ACS has been ruled out. Zofran as needed for nausea and vomiting. Restart Plavix and Lipitor. Restart lisinopril, hydrochlorothiazide and m etoprolol. Monitor vitals, adjust medication if necessary. Restart Protonix. Rehab referral sent. DVT prophylaxis: [SCDs, heparin] Discussed with: [Patient] Anticipated discharge: [1-2 days] Anticipated discharge place: [Home] A total of [35] minutes was spent on the care of this complex patient more than 50% of the time was spent in counseling and care coordination. Patient names her boyfriend Ruddy decision maker if she can't make decisions for herself. Patient would like to be full code. Patient is medically stable. Plans for SNF. Case management on board. Thank you for this consultation. Please call [facility] for any questions or concerns. Objective - Vital Signs Vital signs: Vital Signs Temp 99.3 F 10/11/21 08:00 Pulse 71 10/11/21 08:00 Resp 16 10/11/21 02:00 BP 117/58 10/11/21 08:00 Pulse Ox 95 10/11/21 08:00 FiO2 Intake & Output 10/10/21 10/11/21 10/11/21 18:59 06:59 18:59 Intake Total 2351 50 Output Total 150 200 Balance 2201 -200 50 Weight 98.8 kg Intake: IV 2351 Intake, IV Titration 50 Amount ceFAZolin 2 gm In Sodium 50 Chloride 0.9% 50 ml @ 100 mls/hr IVPB Q8HR [facility] [place] Rx# :[id number] Output: Urine 200 Estimated Blood Loss 150 Other: Voiding Method Bedside Commode # Voids 1 2 - Labs CBC & Chem 7: 10/11/21 06:24 10/10/21 18:26 Labs: Abnormal Lab Results - Last 24 Hours (Table) 10/10/21 10/10/21 10/11/21 Range/Units 18:26 18:26 06:24 WBC 12.1 H (3.8-10.6) k/uL RBC 3.13 L (4.10-5.20) X 10*6/uL Hgb 11.2 L 9.1 L (11.4-16.0) gm/dL Hct 28.1 L (37.2-46.3) % Monocytes # 1.10 H (0.20-1.00) X 10*3/uL BUN 30 H (7-17) mg/dL Creatinine 1.47 H (0.52-1.04) mg/dL Glucose 171 H (74-99) mg/dL
[2021-10-11] MEDS: SENNOSIDES-DOCUSATE SODIUM 1 EACH TAB PO SCH (20:10)
[2021-10-11] MEDS: HYDROmorphone 0.5 MG/0.5 ML SYRINGE IVP PRN (20:10)
[2021-10-11] MEDS: HEPARIN SODIUM,PORCINE/PF 5,000 UNIT/0.5 ML SYRINGE SQ SCH (20:10)
[2021-10-11] MEDS: ATORVASTATIN 80 MG TAB PO SCH (20:10)
[2021-10-12] MEDS: METOPROLOL TARTRATE 25 MG TAB PO SCH (08:51)
[2021-10-12] MEDS: HEPARIN SODIUM,PORCINE/PF 5,000 UNIT/0.5 ML SYRINGE SQ SCH (08:51)
[2021-10-12] MEDS: SUCRALFATE 1 GM TAB PO SCH (08:51)
[2021-10-12] MEDS: LISINOPRIL-HCTZ 20-12.5 MG 1 EACH TAB PO SCH (08:51)
[2021-10-12] MEDS: PANTOPRAZOLE 40 MG TABLET PO SCH (08:51)
[2021-10-12] MEDS ORDERED: CLOPIDOGREL 75 MG TAB PO SCH (09:00)
--- NOTE | 2021-10-12 09:09 | P.PN ---
Subjective Progress Note Date: 10/12/21 Principal diagnosis: Status post right total hip arthroplasty, lateral approach Patient was evaluated today at bedside, she is resting in her hospital chair. Patient has been doing her exercises while sitting. Pain is currently controlled. The chest pain was notable yesterday has resolved. She is urinating with no difficulties. She has not had a bowel movement at this time, she is passing gas Objective - Vital Signs Vital signs: Vital Signs Temp 98.5 F 10/12/21 01:07 Pulse 75 10/12/21 01:07 Resp 17 10/12/21 01:07 BP 99/61 10/12/21 01:07 Pulse Ox 96 10/12/21 01:07 FiO2 Intake & Output 10/11/21 10/12/21 10/12/21 18:59 06:59 18:59 Intake Total 50 320 Balance 50 320 Intake: Intake, IV Titration 50 Amount ceFAZolin 2 gm In Sodium 50 Chloride 0.9% 50 ml @ 100 mls/hr IVPB Q8HR [facility] Rx# :[id number] Oral 320 Other: # Voids 2 - Exam Right lower extremity: Incision is clean, dry, and intact. The exofin fusion tape is in good condition. There is minimal soft tissue swelling and ecchymosis surrounding the medial and lateral aspects of the incision. Calf is soft, no tenderness with palpation. Plantar flexion, dorsiflexion, EHL, FHL are intact. Sensory exam to light touch throughout the extremity is intact, dorsal pedis pulses 2+. - Labs CBC & Chem 7: 10/11/21 06:24 10/10/21 18:26 Labs: Abnormal Lab Results - Last 24 Hours (Table) 10/11/21 Range/Units 06:24 RBC 3.13 L (4.10-5.20) X 10*6/uL Hgb 9.1 L (12.0-15.0) g/dL Hct 28.1 L (37.2-46.3) % Monocytes # 1.10 H (0.20-1.00) X 10*3/uL Assessment and Plan Assessment: Postoperative day #2 status post right total hip arthroplasty, lateral approach Acute blood loss anemia, expected surgical outcome Plan: Pain control, plan for discharge on oral [place], [id number] Tylenol also Ferrous sulfate 325 mg twice a day for 2 weeks for anemia DVT prophylaxis, Plavix has been restarted we will resume this for discharge also Wound care instructions discussed with patient, this concluded showering Weight-bear as tolerated, recommend walker at all times Subacute rehab for discharge, daily physical therapy with plan for home therapy when discharged home Medical recommendations Discharge planning: Stable for discharge to subacute rehab today Time with Patient: Less than 30
--- NOTE | 2021-10-12 09:12 | P.DS ---
Providers Date of admission: 10/10/2021 Expected date of discharge: 10/12/21 Attending physician: Tony David Consults: 10/10/21 09:36 Consult Physician Routine Consulting Provider: Suzy Painter Consult Reason/Comments: Medical Management s/p RTHA Do you want consulting provider notified?: Yes Primary care physician: August Dooley Hospital Course: Date of admission: 10/10/2021 Date of discharge: 10/12/2021 Admission diagnosis: Status post right total hip arthroplasty, lateral approach Discharge diagnosis: Same Attending physician: Dr. David Surgical procedures: Right total hip arthroplasty, lateral approach Brief history: Patient is a 71-year-old female with a history of progressive primary right hip osteoarthritis. At this point patient has failed conservative treatment measures and has opted to proceed with a elective right total hip arthroplasty. Hospital course: Details of patient's surgery can be found in operative report. Patient tolerated the procedure well and was subsequently transported to orthopedic floor. Patient's orthopeidc and medical care was provided daily. Patient had daily laboratory tests performed for evaluation of overall blood counts. Patient had daily physical therapy to include strengthening range of motion as well as education with walker ambulation. Patient was treated with heparin/Plavix for their postoperative DVT prophylaxis during their inpatient stay. Patient was noted to have a relatively uneventful postoperative course. Patient reported satisfactory pain control with oral pain medications by postoperative day 1. Patient showed satisfactory progress with physical therapy. Patient moved steadily through the program and had no difficulty meeting the goals by postoperative day 2. Given patient's otherwise satisfactory course and having met physical therapy goals, plan is to discharge patient rehab on postoperative day 2. Discharge condition/disposition: Patient will be discharged to rehab in stable condition. Discharge medications: Instructions are given on resumption of patient's normal daily medications per primary care recommendation, in addition patient will be prescribed [place] 7.5 mg/325 mg, Senokot-S, ferrous sulfate 325 mg. Discharge instructions: 1. Wound care and infection precautions, keep incision dry and covered while showering, no lotions, creams, moisturizers. No soaking, tubs, pools, hottubs. Do not scrub over the incision. 2. Weight-bear as tolerated with walker / cane until follow-up. 3. Ice and elevate when necessary. Do not exceed 20 minutes per hour with ice pack. 4. Utilize compression sleeve until seen at first follow up appointment. 5. Visiting nursing care. 6. Home physical therapy. 7. Pain meds and anticoagulants per prescription. 8. Pain medication has potential to cause constipation. Increase oral fluid and fiber intake. Contact primary care provider if you have not had a bowel movement within 48 hours after discharge 9. No anti-inflammatory medication until discussed at first post operative visit, this including Motrin, Aleve, Mobic, Diclofenac. 10. Follow up in office at 2 weeks postop with Peewee Hernandez PA-C/Deo Young 11. Follow up with your primary care doctor 7-10 days after discharge. 12. Contact [facility] with any questions, . Procedures: Right total hip arthroplasty, lateral approach Patient Condition at Discharge: Good Plan - Discharge Summary Discharge Rx Participant: No New Discharge Prescriptions: New Sennosides/Docusate Sodium [Senna-S 8.6-50 mg Tablet] 1 each PO DAILY PRN #30 tablet PRN Reason: Constipation HYDROcodone/APAP 7.5-325MG [[place] 7.5] 1 each PO Q6HR PRN #12 tab PRN Reason: Pain No Action Meclizine [Antivert] 12.5 mg PO BID Omeprazole 40 mg PO QAM Sucralfate [Carafate] 1 gm PO BID Lisinopril-Hctz 20-12.5 mg [Zestoretic 20-12.5] 1 each PO BID 30 Days #60 tab Clopidogrel [Plavix] 75 mg PO DAILY Atorvastatin [Lipitor] 80 mg PO HS 30 Days #30 tab Metoprolol Tartrate [Lopressor] 25 mg PO BID 30 Days #60 tab Cholecalciferol [Vitamin D3 (25 Mcg = 1000 Iu)] 100 mcg PO DAILY Ferrous Sulfate [Feosol] 325 mg PO DAILY Discharge Medication List Meclizine [Antivert] 12.5 mg PO BID 05/18/15 [History] Omeprazole 40 mg PO QAM 03/27/20 [History] Sucralfate [Carafate] 1 gm PO BID 03/27/20 [History] Atorvastatin [Lipitor] 80 mg PO HS 30 Days #30 tab 05/06/20 [Rx] Lisinopril-Hctz 20-12.5 mg [Zestoretic 20-12.5] 1 each PO BID 30 Days #60 tab 05/06/20 [Rx] Metoprolol Tartrate [Lopressor] 25 mg PO BID 30 Days #60 tab 05/06/20 [Rx] Cholecalciferol [Vitamin D3 (25 Mcg = 1000 Iu)] 100 mcg PO DAILY 10/06/21 [History] Clopidogrel [Plavix] 75 mg PO DAILY 10/06/21 [History] Ferrous Sulfate [Feosol] 325 mg PO DAILY 10/06/21 [History] HYDROcodone/APAP 7.5-325MG [[place] 7.5] 1 each PO Q6HR PRN #12 tab 10/12/21 [Rx] Sennosides/Docusate Sodium [Senna-S 8.6-50 mg Tablet] 1 each PO DAILY PRN #30 tablet 10/12/21 [Rx] Follow up Appointment(s)/Referral(s): Deo Venegas, IRENE [PHYSICIAN INDUSTRIAL [employer]PAINTER] - 2 Weeks Jaylon Davis, [NON-STAFF] - As Needed Patient Instructions/Handouts: Total Hip Replacement (DC) Activity/Diet/Wound Care/Special Instructions: Orthopedic Discharge Instructions: 1. Wound care and infection precautions, keep incision dry and covered while showering, no lotions, creams, moisturizers. No soaking, pools, hot tubs. Do not scrub over incision. 2. Weight-bear as tolerated with walker / cane until follow-up. 3. Ice and elevate when necessary. Do not exceed 20 minutes per hour with ice pack. 4. Utilize compression sleeve until seen at first follow up appointment. 5. Pain meds and anticoagulants per prescription. 6. Pain medication has potential to cause constipation. Increase oral fluid and fiber intake. Contact primary care provider if you have not had a bowel movement within 48 hours after discharge. 7. No anti-inflammatory medication until discussed at first post operative visit, this including Motrin, Aleve, Mobic, Diclofenac 8. Follow up in office at 2 weeks postop with Peewee Hernandez PA-C / Deo Venegas PA-C 9. Follow up with your primary care doctor 7-10 days after discharge. 10. Contact [facility] with any questions, . Keep dressing clean, dry, intact. While showering, cover dressing with Saran wrap. Keep dressing on until follow-up with in office at 2 weeks. Medications: Discharge Disposition: TRANSFER TO SNF/ECF
--- NOTE | 2021-10-12 10:14 | P.PN ---
Subjective Progress Note Date: 10/12/21 Patient was seen and examined. No acute events overnight. Patient reports well-controlled pain in her right hip. She has no other complaints. General: non toxic, no distress, appears at stated age Derm: warm, dry Head: atraumatic, normocephalic, symmetric Eyes: EOMI, no lid lag, anicteric sclera Mouth: no lip lesion, mucus membranes moist Cardiovascular: S1S2 reg, no murmur Lungs: CTA bilateral, no rhonchi, no rales , no accessory muscle use Ext: no gross muscle atrophy, no edema, no contractures Neuro: no focal neuro deficits Psych: Alert, oriented, appropriate affect #Acute blood loss anemia Resolved: Chest pain, nausea and vomiting Chronic conditions: TIA, hypertension, GERD, CKD Acute blood loss from surgery. Expected resolved. Continue to monitor. Troponins have been trended and ACS has been ruled out. Zofran as needed for nausea and vomiting. Restart Plavix and Lipitor. Restart lisinopril, hydrochlorothiazide and metoprolol. Monitor vitals, adjust medication if necessary. Restart Protonix. Rehab referral sent. DVT prophylaxis: [SCDs, heparin] Discussed with: [Patient] Anticipated discharge: [1-2 days] Anticipated discharge place: [Home] A total of [35] minutes was spent on the care of this complex patient more than 50% of the time was spent in counseling and care coordination. Patient names her boyfriend Ruddy decision maker if she can't make decisions for herself. Patient would like to be full code. Patient is medically stable. Plans for SNF. Case management on board. Thank you for this consultation. Please call [facility] for any questions or concerns. Objective - Vital Signs Vital signs: Vital Signs Temp 98.5 F 10/12/21 01:07 Pulse 75 10/12/21 01:07 Resp 17 10/12/21 01:07 BP 99/61 10/12/21 01:07 Pulse Ox 96 10/12/21 01:07 FiO2 Intake & Output 10/11/21 10/12/21 10/12/21 18:59 06:59 18:59 Intake Total 50 320 Balance 50 320 Intake: Intake, IV Titration 50 Amount ceFAZolin 2 gm In Sodium 50 Chloride 0.9% 50 ml @ 100 mls/hr IVPB Q8HR [facility] Rx# :[id number] Oral 320 Other: # Voids 2 - Labs CBC & Chem 7: 10/11/21 06:24 10/10/21 18:26 Labs: Abnormal Lab Results - Last 24 Hours (Table) 10/11/21 Range/Units 06:24 RBC 3.13 L (4.10-5.20) X 10*6/uL Hgb 9.1 L (12.0-15.0) g/dL Hct 28.1 L (37.2-46.3) % Monocytes # 1.10 H (0.20-1.00) X 10*3/uL
[2021-10-12 10:30] VITALS: BP 121/71; PULSE 78; RESP 14; TEMP 98.7
[2021-10-12 11:14] LABS: Basophils # (A) 0.03 X 10*3/uL (0.00-0.10); Basophils % (A) 0.3 %; Eosinophils # (A) 0.19 X 10*3/uL (0.04-0.35); Eosinophils % (A) 1.9 %; HCT 27.5 % (37.2-46.3); HGB 8.6 g/dL (12.0-15.0); Immature Grans, Automated 0.4 %; Lymphocytes # (A) 1.33 X 10*3/uL (0.90-5.00); Lymphocytes % (A) 13.2 %; MCH 28.7 pg (27.0-32.0); MCHC 31.3 g/dL (32.0-37.0); MCV 91.7 fL (80.0-97.0); Mean Platelet Volume 10.8 fL (9.5-12.2); Monocytes # (A) 1.22 X 10*3/uL (0.20-1.00); Monocytes % (A) 12.2 %; NRBC Per 100 WBC 0 /100 WBCS (0.0-0.0); Neutrophils # (A) 7.23 X 10*3/uL (1.80-7.70); Platelet Count 233 X 10*3/uL (140-440); RDW 12.9 % (11.5-14.5); WBC 10.04 X 10*3/uL (4.50-10.00)
== END 2021-10-12 15:22 ==
LOC: OR 05:55 → 4SSUR 09:50 → OR 10-12 15:22
PROVIDERS: ATTEND Orthopaedic Surgery
DX: M16.11 Unilateral primary osteoarthritis, right hip (principal); G89.18 Other acute postprocedural pain; R07.9 Chest pain, unspecified; R11.2 Nausea with vomiting, unspecified; D62 Acute posthemorrhagic anemia; I12.9 Hypertensive chronic kidney disease with stage 1 through stage 4 chronic kidney disease, or unspecified chronic kidney disease; N18.9 Chronic kidney disease, unspecified; K21.9 Gastro-esophageal reflux disease without esophagitis; Z86.73 Personal history of transient ischemic attack (TIA), and cerebral infarction without residual deficits; Z79.01 Long term (current) use of anticoagulants; Z79.899 Other long term (current) drug therapy; Z88.5 Allergy status to narcotic agent; Z88.3 Allergy status to other anti-infective agents; Z88.8 Allergy status to other drugs, medicaments and biological substances; Z88.2 Allergy status to sulfonamides; Z88.6 Allergy status to analgesic agent; Z82.61 Family history of arthritis; Z82.3 Family history of stroke; Z80.3 Family history of malignant neoplasm of breast; Z80.41 Family history of malignant neoplasm of ovary; Z80.0 Family history of malignant neoplasm of digestive organs; E78.5 Hyperlipidemia, unspecified; R73.03 Prediabetes; Z90.49 Acquired absence of other specified parts of digestive tract; Z85.828 Personal history of other malignant neoplasm of skin; Z80.52 Family history of malignant neoplasm of bladder; Z91.040 Latex allergy status
CPT/HCPCS: 93005; 97161; 97535; 97165; 64999; 76942; 80048; 84484 ×2; 85025; 85027; 88300; 73501; 27130; C1776; J2250; J2765; J0690 ×2; J2405; J3010; J1170 ×2; J1644; 86850; 86900; 86901; 87635

== ENCOUNTER → 2023-07-10 | Outpatient (CLI) | payer MEDICARE, OTHER ==
--- NOTE | 2023-07-10 08:59 | XR ---
EXAMINATION TYPE: XR humerus RT DATE OF EXAM: 07/10/2023 COMPARISON: NONE HISTORY: Pain TECHNIQUE: 2 views submitted. FINDINGS: Severe arthropathy of the right and glenohumeral joint. Mild AC joint arthropathy. Hypertrophic spurr ing. Chronic appearing deformity humeral head. Lung field is clear. Visualized rib cage is intact. Re maining portion of the humerus intact. IMPRESSION: 1. Severe glenohumeral joint arthropathy with deformity of the humeral head. 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 Consider follow-up MRI. 2. Severe AC joint arthropathy correlate for impingement.
== END | disposition home or self-care (01) ==
LOC: RADXRMAIN 08:16
PROVIDERS: ATTEND Nurse Practitioner Family
DX: M19.011 Primary osteoarthritis, right shoulder (principal); M24.811 Other specific joint derangements of right shoulder, not elsewhere classified

== ENCOUNTER → 2023-08-21 | Outpatient (CLI) | payer MEDICARE, OTHER ==
[2023-08-21 15:54] LABS: Basophils # (A) 0.04 X 10*3/uL (0.00-0.10); Basophils % (A) 0.6 %; Eosinophils # (A) 0.08 X 10*3/uL (0.04-0.35); Eosinophils % (A) 1.1 %; HCT 37.8 % (37.2-46.3); HGB 12.3 g/dL (12.0-15.0); Lymphocytes # (A) 1.79 X 10*3/uL (0.90-5.00); Lymphocytes % (A) 25.2 %; MCHC 32.5 g/dL (32.0-37.0); MCV 89.2 FL (80.0-97.0); Mean Platelet Volume 10.2 FL (9.5-12.2); Monocytes # (A) 0.61 X 10*3/uL (0.20-1.00); Monocytes % (A) 8.6 %; NRBC Per 100 WBC 0 X 10*3/uL (0.00-0.01); Neutrophils # (A) 4.56 X 10*3/uL (1.80-7.70); Neutrophils % (A) 64.1 %; Platelet Count 358 X 10*3/uL (140-440); RBC 4.24 X 10*6/uL (4.10-5.20); RDW 12.9 % (11.5-14.5); WBC 7.11 X 10*3/uL (4.50-10.00)
[2023-08-21 15:57] LABS: ALT 19 U/L (8-44); AST 26 U/L (13-35); Albumin 4.3 g/dL (3.8-4.9); Albumin/Globulin Ratio 1.65 Ratio (1.60-3.17); Alkaline Phosphatase 84 U/L (41-126); BUN/Creat Ratio 17.36 Ratio (12.00-20.00); Blood Urea Nitrogen 24.3 mg/dL (9.0-27.0); Calcium 8.6 mg/dL (8.7-10.3); Carbon Dioxide 26.7 mmol/L (21.6-31.8); Chloride 101 mmol/L (96-109); Globulin 2.6 g/dL (1.6-3.3); Glucose 130 mg/dL (70-110); Potassium 4.1 mmol/L (3.5-5.5); Sodium 142 mmol/L (135-145); Total Bilirubin 0.7 mg/dL (0.3-1.2); Total Protein 6.9 g/dL (6.2-8.2)
== END | disposition home or self-care (01) ==
LOC: LABWHC1 09:33
PROVIDERS: ATTEND Internal Medicine Clinical Cardiac Electrophysiology
DX: I10 Essential (primary) hypertension (principal); I65.29 Occlusion and stenosis of unspecified carotid artery; E78.5 Hyperlipidemia, unspecified; R73.03 Prediabetes; R00.2 Palpitations
CPT/HCPCS: 36415; 80053; 80061; 83036; 84443; 85025

== ENCOUNTER 2023-12-12 06:15 | Day surgery (SDC) | payer MEDICARE, OTHER ==
[2023-12-10 16:25] VITALS: BMI 38.0
[~2023-12-12 06:15] MED LIST changes: -ACETAMINOPHEN TAB 500 MG TAB PO PRN; -MELOXICAM 7.5 MG TAB PO PRN; -MIDAZOLAM 2 MG/2 ML VIAL IV PRN; -ONDANSETRON 4 MG/2 ML VIAL IVP ONE; +SODIUM CHLORIDE 0.9% 1,000 ML IV SCH; -TRANEXAMIC ACID IN NACL,ISO-OS 1,000 MG in SALINE 1 100ML.BAG IVPB PRN
[2023-12-12] MEDS: IV FLUID CONTINUATION 1,000 ML IV ONE (06:31)
[2023-12-12 06:47] VITALS: BP 145/74; PULSE 76; RESP 16; TEMP 97.6
--- NOTE | 2023-12-12 19:25 | P.EPPROC ---
- EP Procedure Note Electrophysiology Procedure Note: Diagnosis Recurrent presyncope Baseline 2 EKG shows sinus mechanism with a normal NV interval narrow QRS and normal ST segments QT interval is normal no delta waves Tilt table test per protocol Baseline blood pressure 154/74 mmHg, baseline heart rate 75 beats minute Patient was tilted upright at 70 degrees per protocol There was no significant change in heart rate or blood pressure with upright position No symptoms are noted She was laid supine the end of the procedure Impression Normal twelve-lead EKG Normal heart rate and blood pressure response to upright tilting
== END 2023-12-12 08:52 | disposition home or self-care (01) ==
LOC: CATHEP 06:15
PROVIDERS: ATTEND Internal Medicine Clinical Cardiac Electrophysiology
DX: R55 Syncope and collapse (principal); R06.02 Shortness of breath; Z88.5 Allergy status to narcotic agent; Z88.8 Allergy status to other drugs, medicaments and biological substances
CPT/HCPCS: 93005; 93660